=== PATIENT | male | born 1955 | race Caucasian/White ===

== ENCOUNTER → 2017-08-25 14:29 | Outpatient (REF) | payer OTHER, SELFPAY ==
[2017-08-25 17:43] LABS: Basophils % 0.4 % (0.1-2.0); Eosinophils # 0.1 K/mm3 (0.0-0.4); Eosinophils % 1.5 % (0.1-12.0); Hematocrit 45.3 % (42.0-52.0); Hemoglobin 15.4 g/dL (14.1-18.0); Lymphocytes # 1.7 K/mm3 (0.7-4.5); Lymphocytes % 32.4 K/mm3 (10-50); Mean Corpuscular HGB Conc 33.9 g/dL (31.8-35.4); Mean Corpuscular Hemoglobin 29.9 pg (27.0-31.2); Mean Corpuscular Volume 88.2 fl (80-94); Mean Platelet Volume 9.5 fl (7.4-10.4); Monocytes # 0.3 K/mm3 (0.1-1.0); Neutrophils # 3.1 K/mm3 (1.8-7.8); Neutrophils % 59.7 % (37.0-80.0); Platelet Count 156 K/mm3 (142-424); Red Blood Count 5.14 M/mm3 (4.60-6.20); Red Cell Distribution Width 13.3 % (11.5-17.5); White Blood Count 5.2 K/mm3 (4.8-10.8)
[2017-08-25 19:05] LABS: Hemoglobin A1C 6.9 % (0.0-7.0)
[2017-08-25 19:19] LABS: Alanine Aminotransferase 61 U/L (12-78); Albumin Level 3.9 gm/dL (3.4-5.0); Alkaline Phosphatase 101 U/L (46-116); Anion Gap 13.1 mEq/L (5-15); Aspartate Amino Transferase 61 U/L (15-37); Bilirubin,Total 0.6 mg/dL (0.2-1.0); Blood Urea Nitrogen 9 mg/dL (7-18); Calcium 9.9 mg/dL (8.5-10.1); Carbon Dioxide 28 mmol/L (21.0-32.0); Chloride 101 mmol/L (98-107); Cholesterol 151 mg/dL (140-200); Creatinine,Serum 0.82 mg/dL (0.70-1.30); Estimated Glomerular Filt Rate 95 ml/min (>60); Free T4 (Free Thyroxine) 1.45 ng/dl (0.76-1.46); GFR (African American) 115 ML/MIN (>60); Globulin 3.9 gm/dl (1.3-3.2); Glucose 175 mg/dL (74-106); HDL Cholesterol 51 mg/dL (27-67); LDL Cholesterol 86 mg/dL (0-130); Potassium 4.1 mmoL/L (3.5-5.1); Sodium 138 mmol/L (136-145); Thyroid Stimulating Hormone 0.55 uIU/ml (0.358-3.740); Total Protein,Serum 7.8 gm/dL (6.4-8.2); Triglycerides 71 mg/dL (30-200); VLDL Cholesterol 14 mg/dL (0-40)
[2017-08-27 07:43] LABS: Prostate Specific Ag 0.3 ng/mL (0.0-4.0)
[2017-08-28 21:11] LABS: PSA, Free 0.05 ng/mL; Testosterone,Free 2.5 pg/mL (6.6-18.1)
[2017-08-29 20:09] LABS: Testosterone, Total, LC/MS 314.4 ng/dL (264.0-916.0)
== END ==
LOC: LAB 14:29
PROVIDERS: Visit Provider Emergency Medicine
DX: E34.9 Endocrine disorder, unspecified (principal)
CPT/HCPCS: 80053; 80061; 83036; 84153; 84154; 84402; 84439; 84443; 85025

== ENCOUNTER → 2017-09-08 10:27 | Outpatient (REF) | payer OTHER, SELFPAY | LOC: LAB 10:27 | PROVIDERS: Visit Provider Emergency Medicine | DX: E34.9 Endocrine disorder, unspecified (principal) | CPT/HCPCS: 84402 ==

== ENCOUNTER → 2017-09-23 10:49 | Outpatient (CLI) | payer OTHER, SELFPAY ==
[2017-09-23 11:07] LABS: Basophils % 0.4 % (0.1-2.0); Eosinophils # 0.1 K/mm3 (0.0-0.4); Eosinophils % 1.8 % (0.1-12.0); Hematocrit 47.9 % (42.0-52.0); Hemoglobin 15.5 g/dL (14.1-18.0); Lymphocytes # 1.6 K/mm3 (0.7-4.5); Lymphocytes % 34.1 K/mm3 (10-50); Mean Corpuscular HGB Conc 32.3 g/dL (31.8-35.4); Mean Corpuscular Hemoglobin 29.2 pg (27.0-31.2); Mean Corpuscular Volume 90.4 fl (80-94); Mean Platelet Volume 8.6 fl (7.4-10.4); Monocytes # 0.3 K/mm3 (0.1-1.0); Monocytes % 6.7 % (1.7-9.3); Neutrophils # 2.6 K/mm3 (1.8-7.8); Platelet Count 127 K/mm3 (142-424); Red Blood Count 5.31 M/mm3 (4.60-6.20); Red Cell Distribution Width 13.3 % (11.5-17.5); White Blood Count 4.6 K/mm3 (4.8-10.8)
[2017-09-23 11:47] LABS: Alanine Aminotransferase 66 U/L (12-78); Albumin Level 3.9 gm/dL (3.4-5.0); Alkaline Phosphatase 98 U/L (46-116); Anion Gap 13.7 mEq/L (5-15); Aspartate Amino Transferase 58 U/L (15-37); Bilirubin,Total 0.5 mg/dL (0.2-1.0); Blood Urea Nitrogen 10 mg/dL (7-18); Calcium 10.2 mg/dL (8.5-10.1); Carbon Dioxide 29 mmol/L (21.0-32.0); Chloride 100 mmol/L (98-107); Creatinine,Serum 0.71 mg/dL (0.70-1.30); Estimated Glomerular Filt Rate 112 ml/min (>60); GFR (African American) 136 ML/MIN (>60); Glucose 147 mg/dL (74-106); Potassium 4.7 mmoL/L (3.5-5.1); Sodium 138 mmol/L (136-145); Total Protein,Serum 7.9 gm/dL (6.4-8.2)
== END ==
PROVIDERS: Visit Provider Otolaryngology
DX: Z01.818 Encounter for other preprocedural examination (principal); D49.2 Neoplasm of unspecified behavior of bone, soft tissue, and skin; D23.39 Other benign neoplasm of skin of other parts of face
CPT/HCPCS: 36415; 80053; 85025; 93005

== ENCOUNTER → 2018-02-05 10:02 | Outpatient (CLI) | payer OTHER, SELFPAY ==
[2018-02-05 11:13] LABS: Anion Gap 14.3 mEq/L (5-15); Blood Urea Nitrogen 7 mg/dL (7-18); Calcium 9.3 mg/dL (8.5-10.1); Carbon Dioxide 26 mmol/L (21.0-32.0); Chloride 98 mmol/L (98-107); Creatinine,Serum 0.76 mg/dL (0.70-1.30); Estimated Glomerular Filt Rate 104 ml/min (>60); GFR (African American) 125 ML/MIN (>60); Glucose 247 mg/dL (74-106); Potassium 4.3 mmoL/L (3.5-5.1); Sodium 134 mmol/L (136-145)
[2018-02-05 12:05] LABS: Hemoglobin A1C 9.1 % (0.0-7.0)
[2018-02-09 04:55] LABS: Testosterone, Total, LC/MS 2058.8 ng/dL (264.0-916.0)
== END ==
PROVIDERS: Visit Provider Emergency Medicine
DX: E11.9 Type 2 diabetes mellitus without complications (principal); E34.9 Endocrine disorder, unspecified
CPT/HCPCS: 36415; 80048; 83036; 84403

== ENCOUNTER → 2018-06-25 09:45 | Outpatient (CLI) | payer OTHER, SELFPAY ==
[2018-06-25 10:16] LABS: Basophils % 0.4 % (0.1-2.0); Eosinophils # 0.1 K/mm3 (0.0-0.4); Eosinophils % 1.9 % (0.1-12.0); Hematocrit 48.6 % (42.0-52.0); Hemoglobin 15.9 g/dL (14.1-18.0); Lymphocytes # 1.6 K/mm3 (0.7-4.5); Lymphocytes % 28.8 % (10-50); Mean Corpuscular HGB Conc 32.6 g/dL (31.8-35.4); Mean Corpuscular Hemoglobin 30.6 pg (27.0-31.2); Mean Corpuscular Volume 93.7 fl (80-94); Mean Platelet Volume 9.3 fl (7.4-10.4); Monocytes # 0.4 K/mm3 (0.1-1.0); Monocytes % 6.9 % (1.7-9.3); Neutrophils # 3.5 K/mm3 (1.8-7.8); Platelet Count 115 K/mm3 (142-424); Red Blood Count 5.19 M/mm3 (4.60-6.20); Red Cell Distribution Width 13.8 % (11.5-17.5); White Blood Count 5.7 K/mm3 (4.8-10.8)
[2018-06-25 11:21] LABS: Alanine Aminotransferase 90 U/L (12-78); Albumin Level 3.5 gm/dL (3.4-5.0); Alkaline Phosphatase 95 U/L (46-116); Aspartate Amino Transferase 61 U/L (15-37); Bilirubin,Direct 0.2 mg/dL (0.0-0.2); Bilirubin,Indirect 0.2 mg/dL (0.0-0.9); Bilirubin,Total 0.4 mg/dL (0.2-1.0); Total Protein,Serum 7.4 gm/dL (6.4-8.2)
[2018-06-30 06:47] LABS: Testosterone, Total, LC/MS 2136.5 ng/dL (264.0-916.0); Testosterone,Free 17.2 pg/mL (6.6-18.1)
== END ==
PROVIDERS: Visit Provider Urology
DX: E34.9 Endocrine disorder, unspecified (principal)
CPT/HCPCS: 36415; 80076; 84402; 84403; 85025

== ENCOUNTER → 2019-01-21 13:26 | Outpatient (CLI) | payer OTHER, SELFPAY ==
[2019-01-21 14:05] LABS: Basophils % 0.4 % (0.1-2.0); Eosinophils # 0.1 K/mm3 (0.0-0.4); Eosinophils % 1.3 % (0.1-12.0); Hematocrit 51.3 % (42.0-52.0); Hemoglobin 16.2 g/dL (14.1-18.0); Lymphocytes # 1.7 K/mm3 (0.7-4.5); Lymphocytes % 27.4 % (10-50); Mean Corpuscular HGB Conc 31.6 g/dL (31.8-35.4); Mean Corpuscular Hemoglobin 30.2 pg (27.0-31.2); Mean Corpuscular Volume 95.7 fl (80-94); Mean Platelet Volume 9.6 fl (7.4-10.4); Monocytes # 0.5 K/mm3 (0.1-1.0); Monocytes % 7.8 % (1.7-9.3); Neutrophils # 3.8 K/mm3 (1.8-7.8); Neutrophils % 63.1 % (37.0-80.0); Platelet Count 119 K/mm3 (142-424); Red Blood Count 5.36 M/mm3 (4.60-6.20); Red Cell Distribution Width 13.8 % (11.5-17.5)
[2019-01-21 15:43] LABS: Alanine Aminotransferase 70 U/L (12-78); Albumin Level 3.5 gm/dL (3.4-5.0); Alkaline Phosphatase 95 U/L (46-116); Aspartate Amino Transferase 66 U/L (15-37); Bilirubin,Direct 0.3 mg/dL (0.0-0.2); Bilirubin,Indirect 0.3 mg/dL (0.0-0.9); Bilirubin,Total 0.6 mg/dL (0.2-1.0); Prostate Specific Ag Screen 0.4 ng/mL (0.0-4.0); Total Protein,Serum 7.4 gm/dL (6.4-8.2)
[2019-01-27 08:16] LABS: Testosterone, Total, LC/MS 1159.6 ng/dL (264.0-916.0)
== END ==
PROVIDERS: Visit Provider Urology
DX: E34.9 Endocrine disorder, unspecified (principal)
CPT/HCPCS: 36415; 80076; 84402; 84403; 85025; G0103

== ENCOUNTER → 2019-07-30 13:59 | Outpatient (CLI) | payer MEDICARE, MEDICAID, SELFPAY ==
[2019-07-30 14:30] LABS: Basophils % 0.6 % (0.1-2.0); Eosinophils # 0.1 K/mm3 (0.0-0.4); Eosinophils % 1.7 % (0.1-12.0); Hematocrit 49.3 % (42.0-52.0); Hemoglobin 15.7 g/dL (14.1-18.0); Lymphocytes # 1.3 K/mm3 (0.7-4.5); Lymphocytes % 27.8 % (10-50); Mean Corpuscular HGB Conc 31.8 g/dL (31.8-35.4); Mean Corpuscular Hemoglobin 29.4 pg (27.0-31.2); Mean Corpuscular Volume 92.3 fl (80-94); Monocytes # 0.3 K/mm3 (0.1-1.0); Monocytes % 6.2 % (1.7-9.3); Neutrophils # 2.9 K/mm3 (1.8-7.8); Neutrophils % 63.6 % (37.0-80.0); Platelet Count 112 K/mm3 (142-424); Red Blood Count 5.34 M/mm3 (4.60-6.20); Red Cell Distribution Width 14.1 % (11.5-17.5); White Blood Count 4.6 K/mm3 (4.8-10.8)
[2019-07-30 15:52] LABS: Alanine Aminotransferase 73 U/L (12-78); Albumin Level 3.9 g/dl (3.5-5.0); Alkaline Phosphatase 78 U/L (38-126); Aspartate Amino Transferase 99 U/L (17-59); Bilirubin,Direct 0.2 mg/dl (0.0-0.4); Bilirubin,Indirect 0.7 mg/dL (0.0-0.9); Bilirubin,Total 0.9 mg/dl (0.2-1.3); Bilirubin,Unconjugated 0.7 mg/dL (0.0-1.1); Total Protein,Serum 6.9 g/dl (6.3-8.2)
[2019-08-03 12:43] LABS: Testosterone, Total, LC/MS 408.7 ng/dL (264.0-916.0); Testosterone,Free 3.5 pg/mL (6.6-18.1)
== END ==
PROVIDERS: Visit Provider Urology
DX: R79.89 Other specified abnormal findings of blood chemistry (principal); E34.9 Endocrine disorder, unspecified
CPT/HCPCS: 36415; 80076; 84402; 84403; 85025

== ENCOUNTER → 2020-01-28 13:24 | Outpatient (CLI) | payer MEDICARE, MEDICAID, SELFPAY ==
[2020-01-28 13:43] LABS: Basophils % 0.5 % (0.1-2.0); Eosinophils # 0.1 K/mm3 (0.0-0.4); Eosinophils % 1.3 % (0.1-12.0); Hematocrit 50.5 % (42.0-52.0); Hemoglobin 17.2 g/dL (14.1-18.0); Lymphocytes # 1.7 K/mm3 (0.7-4.5); Mean Corpuscular HGB Conc 34.1 g/dL (31.8-35.4); Mean Corpuscular Hemoglobin 29.7 pg (27.0-31.2); Mean Corpuscular Volume 87.2 fl (80-94); Mean Platelet Volume 8.7 fl (7.4-10.4); Monocytes # 0.5 K/mm3 (0.1-1.0); Monocytes % 8.4 % (1.7-9.3); Neutrophils # 3.3 K/mm3 (1.8-7.8); Neutrophils % 58.8 % (37.0-80.0); Platelet Count 122 K/mm3 (142-424); Red Blood Count 5.79 M/mm3 (4.60-6.20); Red Cell Distribution Width 14.6 % (11.5-17.5); White Blood Count 5.5 K/mm3 (4.8-10.8)
[2020-01-28 14:12] LABS: Alanine Aminotransferase 48 U/L (12-78); Albumin Level 4.2 g/dl (3.5-5.0); Alkaline Phosphatase 81 U/L (38-126); Aspartate Amino Transferase 58 U/L (17-59); Bilirubin,Direct 0.2 mg/dl (0.0-0.4); Bilirubin,Indirect 0.5 mg/dL (0.0-0.9); Bilirubin,Total 0.7 mg/dl (0.2-1.3); Bilirubin,Unconjugated 0.5 mg/dL (0.0-1.1); Total Protein,Serum 7.5 g/dl (6.3-8.2)
[2020-01-28 14:42] LABS: Prostate Specific Ag Screen 0.4 ng/ml (0.0-4.0)
[2020-02-04 17:31] LABS: Testosterone,Free 6.3 pg/mL (6.6-18.1)
== END ==
PROVIDERS: Visit Provider Urology
DX: Z12.5 Encounter for screening for malignant neoplasm of prostate (principal); R79.89 Other specified abnormal findings of blood chemistry; E29.1 Testicular hypofunction
CPT/HCPCS: 36415; 80076; 84402; 84403; 85025; G0103

== ENCOUNTER 2020-02-15 20:17 | Emergency (ER) | payer MEDICARE, MEDICAID, SELFPAY ==
[2020-02-15 20:30] VITALS: BP 164/82; PULSE 90; RESP 16; TEMP 37.3; O2SAT 98; BMI 32.5
--- NOTE | 2020-02-15 20:34 | PC.NURSE ---
completed gastrograffin at this time.
--- NOTE | 2020-02-15 20:42 | XR_ITS ---
PROCEDURE: XR CHEST 2V CLINICAL HISTORY: abd pain/weight loss COMPARISON: CR CXR CHEST(2 VIEWS-NOT PORTABLE) from 05/17/2013 CR CXR2 CHEST-AP VIEW ONLY from 06/15/2014 FINDINGS: Borderline cardiomegaly without failure. The lungs are clear without infiltrates, suspicious nodules, or pleural effusions. Degenerative changes thoracic spine IMPRESSION: No acute findings. Dictated by: Arnulfo Bass MD 02/16/2020 05:24 Arnulfo Bass MD in [place] 02/16/2020 05:24
--- NOTE | 2020-02-15 20:42 | CT_ITS ---
PROCEDURE: CT ABDOMEN PELVIS W CON CLINICAL INDICATION: abd pain/stool changes Abdominal pain, stool changes, episodic vomiting, weight loss COMPARISON: No exams were available for comparison TECHNIQUE: IV Contrast: 75ML Isovue 370 Oral Contrast 10ml Gastroview Axial images obtained with sagittal and coronal reformats. All CT scans at the facility use one or more dose reduction, viz: automated exposure control, ma/kV adjustment per patient size (including targeted exams where dose is matched to indication, i.e. head), or iterative reconstruction technique. FINDINGS: LOWER THORAX: No acute finding ABDOMEN & PELVIS: There is subtle nodularity of the liver margin. No focal liver lesion is evident. The gallbladder is distended at 14 by 5 cm. The spleen is enlarged at 16 cm. Perigastric varices and mesenteric variance these are noted. The portal vein is mildly enlarged at 17 mm in diameter. The pancreas and adrenal glands have an unremarkable appearance. No renal or ureteral calculi. Hypodensity is present along the superior pole of the right kidney measuring 2 cm with a punctate focus of peripheral calcification. This lesion measures 19 Hounsfield units. 6 cm left parapelvic renal cysts noted No intestinal obstruction or free air. There is stranding of the fat in the right lateral conal fascia region adjacent to the appendix. What appears to represent the appendix however is normal in caliber. There is a mild amount of retained colonic feces. No abnormal fluid collections are evident. No intestinal obstruction or free air. There is fusion of the right SI joint. Degenerative changes lumbar spine. IMPRESSION: 1. Moderately distended gallbladder. Ultrasound may provide further evaluation. 2. Nodularity of the liver consistent with cirrhosis with splenomegaly, enlarged portal vein, paraesophageal and peritoneal varices consistent with portal hypertension 3. Indeterminate right renal lesion at 2 cm. Consider ultrasound to determine cystic or solid nature. 4. There is stranding of the fat in the right pericolic gutter inferiorly. This is adjacent to the appendix however, or appears to represent the appendix has an unremarkable appearance. Focal inflammatory changes here are considered. Consider follow-up to confirm stability. Dictated by: Arnulfo Bass MD 02/16/2020 05:45 Arnulfo Bass MD in [facility] 02/16/2020 05:45
--- NOTE | 2020-02-15 20:52 | HMH.EDNVD ---
ED Disposition Clinical Impression: Abdominal pain Qualifiers: Abdominal location: generalized Qualified Code(s): R10.84 - Generalized abdominal pain Disposition: Home, Self-Care Condition on Discharge: Good Instructions: DI for Acute Abdomen Additional Instructions: see pcp for follow up Referrals: Jacob Mcduffie MD [Primary Care Provider] - - Critical Care Critical Care Time: No Attestation: On 02/15/20, the high probability of a clinically significant, sudden or life threatening deterioration of the following system(s) required my full and direct attention, intervention and personal management. The time I documented below is in addition to time spent performing reported procedures but includes the following listed in this critical care notation. Medical Decision Making - Medical Records Medical records reviewed: Yes: I reviewed the patient's medical records. - Garo Inquiry Pt receiving controlled substance: No Vital Signs: 02/15/20 20:30 Temperature 99.2 F Temperature Source Oral Pulse Rate [Right Brachial] 90 Respiratory Rate 16 Blood Pressure [Right Arm] 164/82 H Blood Pressure Mean [Right Arm] 109 Blood Pressure Source [Right Arm] Automatic Cuff Blood Pressure Position [Right Arm] Sitting 02 Sat by Pulse Oximetry 98 Oxygen Delivery Method Room Air - Lab Data Lab results reviewed: Yes: I reviewed the patient's lab results. Lab Results 02/15/20 20:36: WBC 5.9, RBC 5.61, Hgb 17.0, Hct 51.9, MCV 92.6, MCH 30.3, MCHC 32.7, RDW 14.8, Plt Count 101 L, MPV 9.2, Neut % (Auto) 58.9, Lymph % (Auto) 30.8, [place] % (Auto) 8.2, Eos % (Auto) 1.8, Baso % (Auto) 0.3, Neut # (Auto) 3.5, Lymph # (Auto) 1.8, [place] # (Auto) 0.5, Eos # (Auto) 0.1, Baso # (Auto) 0.0, ESR 14 02/15/20 20:36: Sodium 139, Potassium 4.4, Chloride 101, Carbon Dioxide 29, Anion Gap 13.4, BUN 16, Creatinine 0.70, Estimated Creat Clear 113, Estimated GFR 113, Est GFR ( Amer) 137, Glucose 217 H, Calcium 10.5 H, Total Bilirubin 0.9, AST 82 H, ALT 77, Alkaline Phosphatase 81, C-Reactive Protein 3.5, Total Protein 8.4 H, Albumin 4.6, Globulin 3.8 H, Albumin/Globulin Ratio 1.2, Amylase 55 02/15/20 20:36: Lipase 85 02/15/20 21:21: Urine Color Yellow, Urine Appearance Clear, Urine pH 6.0, Ur Specific [place] >= 1.030, Urine Protein Negative, Urine Glucose (UA) 1+, Urine Ketones Negative, Urine Blood Negative, Urine Nitrate Negative, Urine Bilirubin Negative, Urine Urobilinogen 2.0, Ur Leukocyte Esterase Negative, Urine WBC Occasional, Ur Squamous Epith Cells 3-5, Urine Bacteria Trace Result diagrams: 02/15/20 20:36 02/15/20 20:36 Orders (Tests/Meds): ED MEDICATIONS Generic Name Dose Route Start Last Admin Trade Name Freq PRN Reason Stop Dose Admin Sodium Chloride 1,000 mls @ 999 mls/hr 02/15/20 21:15 02/15/20 21:16 Sod Chlor 0.9% 1000ml Bag IV 02/15/20 22:15 999 mls/hr .Q1H1M SUZY Administration Discontinued Medications Generic Name Dose Route Start Last Admin Trade Name Freq PRN Reason Stop Dose Admin Diatrizoate Meglum/Diatrizoate Sod 30 ml 02/15/20 21:15 02/15/20 20:34 Diatrizoate Sharron 66% & Diatrizoate Na 10% 30ml Udc PO 02/15/20 21:16 30 ml ONCE ONE Administration Iopamidol 75 ml 02/15/20 23:05 02/15/20 23:07 Iopamidol-370 (76%);100ml Bottle IV 02/15/20 23:06 75 ml ONCE ONE Administration Sodium Chloride 10 ml 02/15/20 23:05 02/15/20 23:07 Sodium Chloride 0.9% 10ml Syr (Rad Only) IV 02/15/20 23:06 10 ml ONCE ONE Administration ORDERS Category Date Time Status CT abdomen pelvis w con Stat Cat Scan 02/15/20 20:42 Taken XR chest 2V Stat Exams 02/15/20 20:42 Taken Hepatitis Panel (4) Stat Lab 02/15/20 21:07 Received - CT Data CT Scan: Abdomen, Pelvis Time Received: 23:[address] Reviewed: Yes: I have viewed the radiologist's interpretation Preliminary Findings: Abnormal (see report ) Nausea/Vomiting/Diarrhea HPI - General Chief complaint: Abdominal Pain Stat
[2020-02-15 20:54] LABS: Chloride 101 mmol/L (98-107)
[2020-02-15 20:55] LABS: Potassium 4.4 mmoL/L (3.5-5.1); Sodium 139 mmol/L (136-145)
[2020-02-15 20:57] LABS: Alanine Aminotransferase 77 U/L (12-78); Alkaline Phosphatase 81 U/L (38-126); Amylase 55 U/L (30-110); Anion Gap 13.4 mEq/L (5-15); Aspartate Amino Transferase 82 U/L (17-59); Bilirubin,Total 0.9 mg/dl (0.2-1.3); Blood Urea Nitrogen 16 mg/dl (9-20); Carbon Dioxide 29 mmol/L (22.0-30.0); Creatinine Clearance Estimated 113 mL/min (50-200); Estimated Glomerular Filt Rate 113 ml/min (>60); GFR (African American) 137 ML/MIN (>60)
[2020-02-15 20:58] LABS: Albumin Level 4.6 g/dl (3.5-5.0); Albumin/Globulin Ratio 1.2 (1.1-1.8); Calcium 10.5 mg/dl (8.4-10.2); Globulin 3.8 g/dL (1.3-3.2); Glucose 217 mg/dl (74-100); Lipase 85 U/L (23-300); Total Protein,Serum 8.4 g/dl (6.3-8.2)
[2020-02-15 21:00] VITALS: BP 156/78; PULSE 75; RESP 18; O2SAT 97
[2020-02-15 21:03] LABS: C-Reactive Protein 3.5 mg/L (0-4)
[2020-02-15 21:14] LABS: Basophils % 0.3 % (0.1-2.0); Eosinophils # 0.1 K/mm3 (0.0-0.4); Eosinophils % 1.8 % (0.1-12.0); Hematocrit 51.9 % (42.0-52.0); Lymphocytes # 1.8 K/mm3 (0.7-4.5); Lymphocytes % 30.8 % (10-50); Mean Corpuscular HGB Conc 32.7 g/dL (31.8-35.4); Mean Corpuscular Hemoglobin 30.3 pg (27.0-31.2); Mean Corpuscular Volume 92.6 fl (80-94); Mean Platelet Volume 9.2 fl (7.4-10.4); Monocytes # 0.5 K/mm3 (0.1-1.0); Monocytes % 8.2 % (1.7-9.3); Neutrophils # 3.5 K/mm3 (1.8-7.8); Neutrophils % 58.9 % (37.0-80.0); Platelet Count 101 K/mm3 (142-424); Red Blood Count 5.61 M/mm3 (4.60-6.20); Red Cell Distribution Width 14.8 % (11.5-17.5); White Blood Count 5.9 K/mm3 (4.8-10.8)
[2020-02-15 21:27] LABS: Appearance,Urine CLEAR (Clear); Bilirubin,Urine Negative (Negative); Blood, Urine Negative (Negative); Color,Urine YELLOW (Yellow); Glucose,Urine (UA) 1+ (Negative); Ketones,Urine Negative (Negative); Leukocyte Esterase,Urine Negative (Negative); Microscopic, Urine URINE MICROSCOPIC (MICROSCOPIC); Nitrate,Urine Negative (Negative); Protein,Urine Negative (Negative); Specific Gravity, Urine >= 1.030 (1.005-1.030)
--- NOTE | 2020-02-15 21:30 | PC.NURSE ---
pt refused bp monitoring. wouldn't keep cuff or pulse ox on.
[2020-02-15 21:48] LABS: Bacteria,Urine Trace /lpf; WBC,Urine Occasional #/hpf (0-3)
[2020-02-15 21:50] LABS: Erythrocyte Sedimentation Rate 14 mm/hr (0-20)
--- NOTE | 2020-02-15 22:00 | PC.NURSE ---
pt continues to refuse monitoring. unable to obtain vs. pt is upright on side of bed talking on his phone. no apparent distress.
--- NOTE | 2020-02-15 22:27 | PC.NURSE ---
called rad to find out what delay was. spoke with cyrus. they will be down to retrieve patient for scan.
--- NOTE | 2020-02-15 22:47 | PC.NURSE ---
PT REMAINS IN CT
--- NOTE | 2020-02-15 23:03 | PC.NURSE ---
return from ct
--- NOTE | 2020-02-15 23:04 | PC.NURSE ---
refused vs monitoring. no apparent distress. continues to be verbal with clear speech. no issues noted. no new issues stated.
--- NOTE | 2020-02-15 23:18 | PC.NURSE ---
pt standing at curtains edge with intention of rushing the staff. states he doesn't understand what is taking so long for him and that he wants to leave. he was told that he would have to return to his room behind the curtain due to Hip[employer] and that it was not appropriate for him to have visual access to the tracker board names. He demanded to see the written hospital policy for this and house was notified. before house arrived to department, patient had receded back into his room. no additional complaints as of yet. monitoring situation. change house attendant in department at this time.
[2020-02-15 23:30] VITALS: BP 150/75; PULSE 73; RESP 15; TEMP 36.7; O2SAT 98
[2020-02-15 23:49] LABS: Hemoglobin A1C 8.7 % (4.0-6.0)
[2020-02-17 09:40] LABS: Hep A Ab, IgM Negative (Negative); Hepatitis B Core Antibody IgM Negative (Negative); Hepatitis B Surface Antigen Negative (Negative)
[2020-02-17 11:53] LABS: Hepatitis C Antibody >11.0 s/co ratio (0.0-0.9)
== END 2020-02-15 23:32 | disposition home or self-care (01) ==
PROVIDERS: Emergency Provider Emergency Medicine; PCP Emergency Medicine
DX: R10.84 Generalized abdominal pain (principal); E11.65 Type 2 diabetes mellitus with hyperglycemia; I10 Essential (primary) hypertension; F41.8 Other specified anxiety disorders; Z87.442 Personal history of urinary calculi; F17.210 Nicotine dependence, cigarettes, uncomplicated; Z79.899 Other long term (current) drug therapy
CPT/HCPCS: 36415; 71046; 74177; 80053; 80074; 81001; 82150; 83036; 83690; 85025; 85651; 86140; 96365; 99283; Q9967

== ENCOUNTER → 2020-02-18 10:28 | Outpatient (CLI) | payer MEDICARE, MEDICAID, SELFPAY ==
[2020-02-18 16:06] LABS: INR 1.07 (0.9-1.1); Prothrombin Time 11.8 seconds (9.4-11.8)
[2020-02-21 09:19] LABS: HIV Screen 4th Generation wRfx Non Reactive (Non Reactive)
[2020-02-23 23:14] LABS: Hepatitis C Genotype 3 (.)
== END ==
PROVIDERS: Visit Provider Emergency Medicine
DX: R10.9 Unspecified abdominal pain (principal); R76.8 Other specified abnormal immunological findings in serum; Z11.4 Encounter for screening for human immunodeficiency virus [HIV]
CPT/HCPCS: 36415; 85610; 86703; 87522; G0432

== ENCOUNTER → 2020-02-25 10:56 | Outpatient (CLI) | payer MEDICARE, MEDICAID, SELFPAY ==
--- NOTE | 2020-02-25 10:56 | US_ITS ---
PROCEDURE: US KIDNEY CLINICAL INDICATION: Renal masses COMPARISON: CT CT ABDOMEN PELVIS W CON from 02/15/2020 FINDINGS: The right kidney is [id number]. An indeterminate nodule involving the right kidney upper pole on CT scan. This does appear to represent a cyst measuring 18 x 14 mm. The left kidney is [id number]. There is a left parapelvic renal cyst at 5 cm No hydronephrosis. IMPRESSION: Bilateral renal cysts. CT abnormality of the right kidney corresponds to a benign-appearing cyst Dictated by: Arnulfo Bass MD 02/25/2020 17:21 Arnulfo Bass MD in [facility] 02/25/2020 17:21
== END ==
PROVIDERS: PCP Emergency Medicine; Visit Provider Emergency Medicine
DX: N28.9 Disorder of kidney and ureter, unspecified (principal)
CPT/HCPCS: 76770

== ENCOUNTER → 2020-05-31 14:10 | Outpatient (CLI) | payer MEDICARE, MEDICAID, SELFPAY ==
[2020-05-31 14:21] LABS: Chloride 101 mmol/L (98-107)
[2020-05-31 14:22] LABS: Potassium 4.5 mmoL/L (3.5-5.1); Sodium 139 mmol/L (136-145)
[2020-05-31 14:24] LABS: Alanine Aminotransferase 62 U/L (12-78); Aspartate Amino Transferase 71 U/L (17-59); Blood Urea Nitrogen 15 mg/dl (9-20); Carbon Dioxide 30 mmol/L (22.0-30.0); Estimated Glomerular Filt Rate 113 ml/min (>60); GFR (African American) 137 ML/MIN (>60)
[2020-05-31 14:25] LABS: Albumin Level 4.4 g/dl (3.5-5.0); Albumin/Globulin Ratio 1.2 (1.1-1.8); Alkaline Phosphatase 94 U/L (38-126); Bilirubin,Total 1.1 mg/dl (0.2-1.3); Calcium 10.7 mg/dl (8.4-10.2); Chol/HDL Ratio 2.6 (1-3.5); Cholesterol 165 mg/dl (140-200); Globulin 3.8 g/dL (1.3-3.2); Glucose 287 mg/dl (74-100); HDL Cholesterol 64 mg/dl (40-60); Total Protein,Serum 8.2 g/dl (6.3-8.2); Triglycerides 81 mg/dl (30-150); VLDL Cholesterol 16 mg/dL (0-40)
[2020-05-31 14:27] LABS: Creatinine,Urine Random 156 mg/dL (Not Estab.)
[2020-05-31 14:29] LABS: Microalbumin/Creatinine Ratio 23.9
[2020-05-31 14:36] LABS: Direct LDL Cholesterol 73.46 mg/dL (100-129)
[2020-05-31 14:37] LABS: Hemoglobin A1C 7.7 % (4.0-6.0)
[2020-05-31 14:39] LABS: Basophils % 0.4 % (0.1-2.0); Eosinophils # 0.1 K/mm3 (0.0-0.4); Eosinophils % 0.9 % (0.1-12.0); Hematocrit 50.5 % (42.0-52.0); Hemoglobin 16.7 g/dL (14.1-18.0); Lymphocytes # 1.6 K/mm3 (0.7-4.5); Lymphocytes % 22.7 % (10-50); Mean Corpuscular Hemoglobin 29.9 pg (27.0-31.2); Mean Corpuscular Volume 90.6 fl (80-94); Mean Platelet Volume 9.5 fl (7.4-10.4); Monocytes # 0.5 K/mm3 (0.1-1.0); Neutrophils # 4.9 K/mm3 (1.8-7.8); Neutrophils % 68.9 % (37.0-80.0); Platelet Count 125 K/mm3 (142-424); Red Blood Count 5.57 M/mm3 (4.60-6.20); Red Cell Distribution Width 15.1 % (11.5-17.5); White Blood Count 7.1 K/mm3 (4.8-10.8)
[2020-05-31 14:42] LABS: Free T4 (Free Thyroxine) 1.64 ng/dl (0.78-2.19)
[2020-05-31 14:56] LABS: Thyroid Stimulating Hormone 0.51 uIU/mL (0.465-4.68)
== END ==
PROVIDERS: Visit Provider Emergency Medicine
DX: E11.9 Type 2 diabetes mellitus without complications (principal); Z79.84 Long term (current) use of oral hypoglycemic drugs
CPT/HCPCS: 80053; 80061; 82043; 82570; 83036; 84439; 84443; 85025

== ENCOUNTER → 2020-06-07 13:43 | Outpatient (CLI) | payer MEDICARE, MEDICAID, SELFPAY ==
[2020-06-09 13:45] LABS: Peripheral Smear Review Scanned Result
== END ==
PROVIDERS: Visit Provider Emergency Medicine
DX: D69.6 Thrombocytopenia, unspecified (principal)

== ENCOUNTER 2020-07-04 18:14 | Emergency (ER) | payer MEDICARE, MEDICAID, SELFPAY ==
[2020-07-04 18:28] VITALS: BP 175/91; PULSE 95; RESP 16; TEMP 36.8; O2SAT 97; BMI 31.1
--- NOTE | 2020-07-04 18:45 | HMH.EDBACK ---
ED Disposition Clinical Impression: Sciatica Qualifiers: Laterality: right Qualified Code(s): M54.31 - Sciatica, right side Disposition: Home, Self-Care Condition on Discharge: Good Instructions: DI for Low Back Pain, DI for Back Pain With Sciatica Referrals: Jacob Mcduffie MD [Primary Care Provider] - - Critical Care Critical Care Time: No Attestation: On 07/04/20, the high probability of a clinically significant, sudden or life threatening deterioration of the following system(s) required my full and direct attention, intervention and personal management. The time I documented below is in addition to time spent performing reported procedures but includes the following listed in this critical care notation. Medical Decision Making - Garo Inquiry Pt receiving controlled substance: No Vital Signs: 07/04/20 18:28 Temperature 98.2 F Temperature Source Oral Pulse Rate [Right Radial] 95 H Respiratory Rate 16 Blood Pressure [Right Arm] 175/91 H Blood Pressure Mean [Right Arm] 119 Blood Pressure Source [Right Arm] Automatic Cuff Blood Pressure Position [Right Arm] Sitting 02 Sat by Pulse Oximetry 97 Oxygen Delivery Method Room Air Orders (Tests/Meds): ED MEDICATIONS Discontinued Medications Generic Name Dose Route Start Last Admin Trade Name Freq PRN Reason Stop Dose Admin Ketorolac Tromethamine 60 mg 07/04/20 18:49 07/04/20 18:54 Ketorolac 60mg/2ml Vial IM 07/04/20 18:50 60 mg ONCE ONE Administration Morphine Sulfate 4 mg 07/04/20 19:39 07/04/20 19:40 Morphine 4mg/Ml Syringe IV 07/04/20 19:40 4 mg ONCE ONE Administration Morphine Sulfate 4 mg 07/04/20 19:43 Morphine 2mg/Ml Syringe IM 07/04/20 19:44 ONCE ONE ORDERS Category Date Time Status XR lumbar spine min 4V Stat Exams 07/04/20 18:49 Taken Urinalysis and Microscopic Stat Lab 07/04/20 18:49 Ordered - Radiology Data #1 Image(s): L-Spine Image Reviewed: No I reviewed the patient's radiology results, Yes I reviewed the patient's radiology image, No I discussed the image results w/the radiologist, No I have reviewed radiologist's interpretation Preliminary Findings: No Fracture Seen (There are nonspecific degenerative changes. No acute changes seen) Medical Decision Narrative: Emergency department complaining of lower back pain. On physical examination there is no evidence of limb ischemia. There is no evidence of aortic aneurysm. The patient had a positive leg raise test on the right. He is neurovascularly intact distally. He was given Toradol in the emergency department without any relief. The patient refuses to give a urinalysis sample stating that he wants to see something on TV today. A plain radiograph of the lumbar spine did not show any acute disease. There is some evidence of nonspecific degenerative changes. The final radiology interpretation is pending. The patient will be discharged home in stable condition after having received a 4 mg intramuscularly administered morphine dose. Back Pain HPI - General Chief Complaint: Back Pain/Injury Stated Complaint: Back pain Time Seen by Provider: 07/04/20 18:45 Mode of Arrival: Ambulatory Source of Information: Patient, Spouse Limitations: No Limitations Description of Symptoms (Recalled from ER Triage Doc. by RN): Back Pain - History of Present Illness MD Complaint: back pain Onset (ago): day(s) (2) Duration: constant Similar Symptoms Previously: No Location: lumbar spine Severity: moderate Radiation: left leg Relieving factors: none Exacerbating factors: movement Context: unknown - Related Data Home Medications Medication Instructions Recorded Confirmed fentanyl 100 mcg/hr transdermal 1 patch TRANSDERMA Q72H 08/25/17 06/07/20 patch testosterone cypionate 200 mg/mL 250 mg IM Q2W 12/04/17 06/07/20 intramuscular kit Aspirin [Low Dose Aspirin EC] 81 mg PO DAILY 02/15/20 06/07/20 Escitalopram Oxalate See Rx Ins
--- NOTE | 2020-07-04 18:49 | XR_ITS ---
PROCEDURE: XR LUMBAR SPINE MIN 4V CLINICAL INDICATION: pain COMPARISON: No exams were available for comparison FINDINGS: Multilevel degenerative changes with endplate sclerosis, loss of disc height, anterior osteophyte formation facet joint arthropathy noted, worse in the lower lumbar levels. No evidence of acute fractures or listhesis. Bone density is within normal limits. Vertebral body heights and alignment are maintained. Extensive vascular calcification of the abdominal aorta noted. Otherwise the paravertebral soft tissues are unremarkable. IMPRESSION: Degenerative changes of the lumbar spine. No acute fractures or listhesis. Dictated by: Shannan Haynes 07/05/2020 09:05 Shannan Haynes in [facility] 07/05/2020 09:05
[2020-07-04 19:53] VITALS: BP 142/73; PULSE 79; RESP 18; TEMP 36.6; O2SAT 98
== END 2020-07-04 19:56 | disposition home or self-care (01) ==
PROVIDERS: Emergency Provider Emergency Medicine; PCP Emergency Medicine
DX: M54.31 Sciatica, right side (principal); I10 Essential (primary) hypertension; F41.8 Other specified anxiety disorders; E11.9 Type 2 diabetes mellitus without complications; Z87.442 Personal history of urinary calculi; F17.210 Nicotine dependence, cigarettes, uncomplicated; Z79.899 Other long term (current) drug therapy
CPT/HCPCS: 72110; 96372; 99282

== ENCOUNTER → 2020-08-03 14:13 | Outpatient (CLI) | payer MEDICARE, MEDICAID, SELFPAY ==
[2020-08-03 14:24] LABS: Microscopic, Urine URINE MICROSCOPIC (MICROSCOPIC)
[2020-08-03 14:55] LABS: Appearance,Urine CLEAR (Clear); Bilirubin,Urine Negative (Negative); Blood, Urine Negative (Negative); Color,Urine YELLOW (Yellow); Glucose,Urine (UA) 1+ (Negative); Ketones,Urine Negative (Negative); Leukocyte Esterase,Urine Negative (Negative); Nitrate,Urine Negative (Negative); Protein,Urine Negative (Negative); Specific Gravity, Urine 1.015 (1.005-1.030); Urobilinogen,Urine 0.2 EU/dl (0.2)
[2020-08-03 14:57] LABS: Basophils # 0.1 K/mm3 (0-0.2); Basophils % 0.7 % (0.1-2.0); Eosinophils # 0.1 K/mm3 (0.0-0.4); Hematocrit 49.9 % (42.0-52.0); Hemoglobin 17.2 g/dL (14.1-18.0); Lymphocytes # 2.5 K/mm3 (0.7-4.5); Lymphocytes % 26.5 % (10-50); Mean Corpuscular HGB Conc 34.6 g/dL (31.8-35.4); Mean Corpuscular Hemoglobin 29.4 pg (27.0-31.2); Mean Corpuscular Volume 84.9 fl (80-94); Mean Platelet Volume 8.4 fl (7.4-10.4); Monocytes # 0.7 K/mm3 (0.1-1.0); Monocytes % 6.9 % (1.7-9.3); Neutrophils # 6.1 K/mm3 (1.8-7.8); Neutrophils % 64.9 % (37.0-80.0); Platelet Count 153 K/mm3 (142-424); Red Blood Count 5.87 M/mm3 (4.60-6.20); Red Cell Distribution Width 14.6 % (11.5-17.5); White Blood Count 9.3 K/mm3 (4.8-10.8)
[2020-08-03 15:04] LABS: Bacteria,Urine Trace /lpf; Mucus,Urine 1+ /lpf
[2020-08-03 15:08] LABS: Microalbumin/Creatinine Ratio 85.1
[2020-08-03 15:14] LABS: Creatinine,Urine Random 109 mg/dL (Not Estab.)
[2020-08-03 15:53] LABS: Albumin Level 4.9 g/dl (3.5-5.0); Anion Gap 17.8 mEq/L (5-15); Blood Urea Nitrogen 12 mg/dl (9-20); Carbon Dioxide 24 mmol/L (22.0-30.0); Chloride 104 mmol/L (98-107); Estimated Glomerular Filt Rate 84 ml/min (>60); GFR (African American) 102 ML/MIN (>60); Glucose 165 mg/dl (74-100); Potassium 3.8 mmoL/L (3.5-5.1); Sodium 142 mmol/L (136-145)
[2020-08-03 16:06] LABS: Intact Parathyroid Hormone 32.3 pg/mL (7.5-53.5)
[2020-08-03 16:10] LABS: 25-OH Vitamin D, Total 18.3 ng/mL (30-100)
== END ==
PROVIDERS: Visit Provider Internal Medicine Nephrology
DX: R80.9 Proteinuria, unspecified (principal); E55.9 Vitamin D deficiency, unspecified
CPT/HCPCS: 36415; 80069; 81001; 82043; 82306; 82570; 83970; 84155; 85025

== ENCOUNTER → 2020-08-14 14:16 | Outpatient (POV) | payer MEDICARE, MEDICAID, SELFPAY | PROVIDERS: Visit Provider Internal Medicine Nephrology | DX: Z00.00 Encounter for general adult medical examination without abnormal findings (principal) ==

== ENCOUNTER → 2020-10-02 13:59 | Outpatient (CLI) | payer MEDICARE, MEDICAID, SELFPAY ==
[2020-10-02 15:26] LABS: Chol/HDL Ratio 3.9 (1-3.5); Cholesterol 171 mg/dl (140-200); HDL Cholesterol 44 mg/dl (40-60); Triglycerides 79 mg/dl (30-150); VLDL Cholesterol 16 mg/dL (0-40)
[2020-10-02 15:37] LABS: Direct LDL Cholesterol 104.67 mg/dL (100-129)
[2020-10-02 17:11] LABS: Hemoglobin A1C 7.1 % (4.0-6.0)
== END ==
PROVIDERS: Visit Provider Emergency Medicine
DX: E11.9 Type 2 diabetes mellitus without complications (principal); Z79.84 Long term (current) use of oral hypoglycemic drugs
CPT/HCPCS: 80061; 83036

== ENCOUNTER 2020-12-17 12:07 | Emergency (ER) | payer MEDICARE, MEDICAID, SELFPAY ==
[2020-12-17 12:21] VITALS: BP 155/87; PULSE 110; RESP 18; TEMP 37.2; O2SAT 96; BMI 29.8
--- NOTE | 2020-12-17 12:25 | XR_ITS ---
PROCEDURE INFORMATION: Exam: XR Left Hip Exam date and time: 12/17/2020 12:25 PM Age: 65 years old Clinical indication: Injury or trauma; Other: Ran into a door; Blunt trauma (contusions or hematomas); Injury details: Left hip pain after running into a door at 10:30am this morning. TECHNIQUE: Imaging protocol: XR Left hip. Views: 2 or 3 views hip with pelvis when performed. COMPARISON: CT ABDOMEN PELVIS W CON 02/15/2020 10:38 PM FINDINGS: Bones/joints: Mild degenerative change. No acute fracture or traumatic malalignment. Soft tissues: Unremarkable. IMPRESSION: No acute osseous abnormality.
--- NOTE | 2020-12-17 12:27 | HMH.EDGENADL ---
ED Disposition Clinical Impression: Traumatic hematoma Disposition: Home, Self-Care Condition on Discharge: Good Instructions: DI for Hematoma (Bruise) Additional Instructions: Apply ice to the hematoma 20 to 30 minutes 4-5 times a day for the next 2 days. Return to the emergency department if the hematoma doubles in size. Expect more visible bruising to appear on the skin over time. It also may spread down your leg over the next week. Referrals: Jacob Mcduffie MD [Primary Care Provider] - - Critical Care Critical Care Time: No Attestation: On 12/17/20, the high probability of a clinically significant, sudden or life threatening deterioration of the following system(s) required my full and direct attention, intervention and personal management. The time I documented below is in addition to time spent performing reported procedures but includes the following listed in this critical care notation. Medical Decision Making - Garo Inquiry Pt receiving controlled substance: No Vital Signs: 12/17/20 12:21 12/17/20 12:31 12/17/20 13:02 Temperature 98.9 F Temperature Source Oral Pulse Rate 108 H 108 H Pulse Rate [Left Radial] 110 H Respiratory Rate 18 Blood Pressure 165/100 H 148/84 H Blood Pressure [Right Arm] 155/87 H Blood Pressure Mean 115 119 Blood Pressure Mean [Right Arm] 109 Blood Pressure Source [Right Arm] Automatic Cuff Blood Pressure Position Blood Pressure Position [Right Arm] Sitting 02 Sat by Pulse Oximetry 96 94 L 95 Oxygen Delivery Method Room Air 12/17/20 13:19 12/17/20 13:35 Temperature 98.9 F 98 F Temperature Source Oral Oral Pulse Rate 108 H 78 Pulse Rate [Left Radial] Respiratory Rate 18 18 Blood Pressure 148/84 H 136/68 Blood Pressure [Right Arm] Blood Pressure Mean Blood Pressure Mean [Right Arm] Blood Pressure Source [Right Arm] Blood Pressure Position Sitting Blood Pressure Position [Right Arm] 02 Sat by Pulse Oximetry Oxygen Delivery Method Room Air Room Air - Radiology Data #1 Image(s): Hip Image Reviewed: Yes I reviewed the patient's radiology image soft tissue swelling, no fracture seen - Reevaluation(s) Time: 12:57 Reevaluation #1: Hematoma has not changed in size since my initial examination. The patient refuses any blood work. Discussed checking his blood counts and clotting studies, given his history of liver disease. He declines. Review of his most recent blood work here shows that his prothrombin time was normal. General Adult HPI - General Chief complaint: Extremity Injury, Lower Stated complaint: AO bumped something 12/17 lt hip pain/swelling Time Seen by Provider: 12/17/20 12:27 Mode of Arrival: Ambulatory Limitations: No Limitations Description of Symptoms (Recalled from ER Triage Doc. by RN): c/o left hip swelling after hitting a door frame a few hours ago - History of Present Illness HPI narrative: States that he hit his left hip on a door frame this morning at about 10 AM. Since then he has developed a large knot in the area. He has applied ice, but it continues to get bigger. Able to ambulate. No medications taken. States he cannot take [id number] analgesics because of liver problems, nonalcoholic . He is not on any anticoagulants. He refuses to discuss exactly how the injury happened, he states I am not going there . - Related Data Home Medications Medication Instructions Recorded Confirmed testosterone cypionate 200 mg/mL 250 mg IM Q2W 12/04/17 10/02/20 intramuscular kit pantoprazole 20 mg tablet,delayed 20 mg PO DAILY 10/02/20 10/02/20 release Previous Rx's Medication Instructions Recorded gabapentin 100 mg capsule 100 mg PO TID 10 Days #30 cap 10/02/20 gabapentin 300 mg capsule 300 mg PO TID #90 cap 10/02/20 escitalopram oxalate 20 mg tablet See Rx Instructions .ROUTE 10/20/20 .COMPLEX #90 tab lisinopril 20 See Rx Instructions .ROUTE 11/08/20 mg-hydr
[2020-12-17 12:31] VITALS: BP 165/100; PULSE 108; O2SAT 94
[2020-12-17 13:02] VITALS: BP 148/84; PULSE 108; O2SAT 95
[2020-12-17 13:19] VITALS: BP 148/84; PULSE 108; RESP 18; TEMP 37.2; O2SAT 96
[2020-12-17 13:35] VITALS: BP 136/68; PULSE 78; RESP 18; TEMP 36.6; O2SAT 98
== END 2020-12-17 13:25 | disposition home or self-care (01) ==
LOC: UTC 12:11 → ER 12:15
PROVIDERS: Emergency Provider Emergency Medicine; PCP Emergency Medicine
DX: S70.02XA Contusion of left hip, initial encounter (principal); W22.8XXA Striking against or struck by other objects, initial encounter; Y92.019 Unspecified place in single-family (private) house as the place of occurrence of the external cause; E11.9 Type 2 diabetes mellitus without complications; F41.8 Other specified anxiety disorders; F17.210 Nicotine dependence, cigarettes, uncomplicated; Z79.899 Other long term (current) drug therapy
CPT/HCPCS: 73502; 99282

== ENCOUNTER → 2021-01-09 17:55 | Outpatient (CLI) | payer MEDICARE, MEDICAID, SELFPAY ==
[2021-01-09 18:28] LABS: Basophils % 0.5 % (0.1-2.0); Eosinophils # 0.1 K/mm3 (0.0-0.4); Eosinophils % 1.4 % (0.1-12.0); Hematocrit 44.2 % (42.0-52.0); Hemoglobin 14.4 g/dL (14.1-18.0); Lymphocytes % 23.6 % (10-50); Mean Corpuscular HGB Conc 32.5 g/dL (31.8-35.4); Mean Corpuscular Volume 92.4 fl (80-94); Mean Platelet Volume 9.7 fl (7.4-10.4); Monocytes # 0.3 K/mm3 (0.1-1.0); Monocytes % 7.4 % (1.7-9.3); Neutrophils # 2.8 K/mm3 (1.8-7.8); Neutrophils % 67.1 % (37.0-80.0); Platelet Count 126 K/mm3 (142-424); Red Blood Count 4.79 M/mm3 (4.60-6.20); Red Cell Distribution Width 14.1 % (11.5-17.5); White Blood Count 4.1 K/mm3 (4.8-10.8)
[2021-01-09 19:20] LABS: Chloride 104 mmol/L (98-107); Sodium 141 mmol/L (136-145)
[2021-01-09 19:21] LABS: Potassium 4.3 mmoL/L (3.5-5.1)
[2021-01-09 19:23] LABS: Alanine Aminotransferase 12 U/L (12-78); Albumin Level 4.2 g/dl (3.5-5.0); Albumin/Globulin Ratio 1.3 (1.1-1.8); Alkaline Phosphatase 84 U/L (38-126); Anion Gap 11.3 mEq/L (5-15); Aspartate Amino Transferase 25 U/L (17-59); Bilirubin,Total 0.6 mg/dl (0.2-1.3); Blood Urea Nitrogen 10 mg/dl (9-20); Calcium 9.7 mg/dl (8.4-10.2); Carbon Dioxide 30 mmol/L (22.0-30.0); Cholesterol 161 mg/dl (140-200); Estimated Glomerular Filt Rate 113 ml/min (>60); GFR (African American) 137 ML/MIN (>60); Globulin 3.2 g/dL (1.3-3.2); Glucose 186 mg/dl (74-100); Total Protein,Serum 7.4 g/dl (6.3-8.2); Triglycerides 64 mg/dl (30-150); VLDL Cholesterol 13 mg/dL (0-40)
[2021-01-09 19:24] LABS: Chol/HDL Ratio 2.8 (1-3.5); HDL Cholesterol 57 mg/dl (40-60)
[2021-01-09 19:36] LABS: Direct LDL Cholesterol 81.09 mg/dL (100-129)
[2021-01-09 19:57] LABS: T4 (Thyroxine) 9.3 ug/dl (5.53-11.0)
[2021-01-09 20:11] LABS: Thyroid Stimulating Hormone 0.56 uIU/mL (0.465-4.68)
== END ==
PROVIDERS: Visit Provider Nurse Practitioner Family
DX: E11.9 Type 2 diabetes mellitus without complications (principal); G62.9 Polyneuropathy, unspecified; Z79.84 Long term (current) use of oral hypoglycemic drugs
CPT/HCPCS: 80053; 80061; 84436; 84443; 85025

== ENCOUNTER → 2021-01-10 16:07 | Outpatient (CLI) | payer MEDICARE, MEDICAID, SELFPAY ==
[2021-01-10 16:49] LABS: Hemoglobin A1C 6.6 % (4.0-6.0)
== END ==
PROVIDERS: Visit Provider Nurse Practitioner Family
DX: E11.9 Type 2 diabetes mellitus without complications (principal); Z79.84 Long term (current) use of oral hypoglycemic drugs
CPT/HCPCS: 83036

== ENCOUNTER → 2021-01-25 11:08 | Outpatient (CLI) | payer MEDICARE, MEDICAID, SELFPAY ==
[2021-01-26 09:16] LABS: Estradiol 48.3 pg/mL (7.6-42.6)
[2021-01-31 11:21] LABS: Testosterone, Total, LC/MS 1723.4 ng/dL (264.0-916.0); Testosterone,Free 16.2 pg/mL (6.6-18.1)
== END ==
PROVIDERS: Visit Provider Urology
DX: E29.1 Testicular hypofunction (principal)
CPT/HCPCS: 36415; 82670; 84402; 84403

== ENCOUNTER → 2021-07-26 11:16 | Outpatient (CLI) | payer MEDICARE, MEDICAID, SELFPAY ==
[2021-07-26 11:22] LABS: MANUAL DIFFERENTIAL MANUAL DIFFERENTIAL (MANUAL DIFF)
[2021-07-26 11:57] LABS: Basophils % 0.4 % (0.1-2.0); Eosinophils # 0.1 K/mm3 (0.0-0.4); Eosinophils % 1.9 % (0.1-12.0); Hematocrit 46.2 % (42.0-52.0); Hemoglobin 14.7 g/dL (14.1-18.0); Lymphocytes # 0.9 K/mm3 (0.7-4.5); Lymphocytes % 20.5 % (10-50); Mean Corpuscular HGB Conc 31.7 g/dL (31.8-35.4); Mean Corpuscular Hemoglobin 29.4 pg (27.0-31.2); Mean Corpuscular Volume 92.5 fl (80-94); Mean Platelet Volume 9.6 fl (7.4-10.4); Monocytes # 0.4 K/mm3 (0.1-1.0); Monocytes % 7.7 % (1.7-9.3); Neutrophils # 3.1 K/mm3 (1.8-7.8); Neutrophils % 69.5 % (37.0-80.0); Platelet Count 120 K/mm3 (142-424); Red Cell Distribution Width 15.4 % (11.5-17.5); White Blood Count 4.5 K/mm3 (4.8-10.8)
[2021-07-26 12:21] LABS: Alanine Aminotransferase 16 U/L (12-78); Albumin Level 4.3 g/dl (3.5-5.0); Alkaline Phosphatase 87 U/L (38-126); Aspartate Amino Transferase 25 U/L (17-59); Bilirubin,Direct 0.1 mg/dl (0.0-0.4); Bilirubin,Indirect 0.4 mg/dL (0.0-0.9); Bilirubin,Total 0.5 mg/dl (0.2-1.3); Bilirubin,Unconjugated 0.4 mg/dL (0.0-1.1)
[2021-07-26 12:53] LABS: Prostate Specific Ag Screen 0.4 ng/ml (0.0-4.0)
[2021-07-26 14:06] LABS: Eosinophils % 1 % (0-3); Lymphocytes % 23 % (10-50); Monocytes % 1 % (2-9); Neutrophils % 75 % (42-76); Total Cells Counted 100
[2021-07-26 14:07] LABS: Platelet Estimate Slight Decrease; RBC Morphology Normal
[2021-07-27 08:42] LABS: Estradiol <5.0 pg/mL (7.6-42.6)
[2021-08-06 04:11] LABS: Testosterone, Total, LC/MS 193.1 ng/dL (264.0-916.0); Testosterone,Free 1.7 pg/mL (6.6-18.1)
== END ==
PROVIDERS: Visit Provider Urology
DX: E29.1 Testicular hypofunction (principal); Z12.5 Encounter for screening for malignant neoplasm of prostate
CPT/HCPCS: 36415; 80076; 82670; 84402; 84403; 85007; 85014; 85018; 85048; 85049; G0103

== ENCOUNTER → 2021-07-31 16:57 | Outpatient (CLI) | payer MEDICARE, MEDICAID, SELFPAY ==
[2021-07-31 13:31] LABS: Chloride 104 mmol/L (98-107)
[2021-07-31 13:32] LABS: Potassium 4.7 mmoL/L (3.5-5.1); Sodium 139 mmol/L (136-145)
[2021-07-31 13:34] LABS: Alanine Aminotransferase 19 U/L (12-78); Albumin Level 4.1 g/dl (3.5-5.0); Albumin/Globulin Ratio 1.5 (1.1-1.8); Alkaline Phosphatase 97 U/L (38-126); Anion Gap 8.7 mEq/L (5-15); Aspartate Amino Transferase 31 U/L (17-59); Bilirubin,Total 0.7 mg/dl (0.2-1.3); Blood Urea Nitrogen 14 mg/dl (9-20); Carbon Dioxide 31 mmol/L (22.0-30.0); Estimated Glomerular Filt Rate 84 ml/min (>60); GFR (African American) 102 ML/MIN (>60); Globulin 2.7 g/dL (1.3-3.2); Total Protein,Serum 6.8 g/dl (6.3-8.2)
[2021-07-31 13:35] LABS: Calcium 10.2 mg/dl (8.4-10.2); Chol/HDL Ratio 2.7 (1-3.5); Cholesterol 167 mg/dl (140-200); Glucose 150 mg/dl (74-100); HDL Cholesterol 63 mg/dl (40-60); Triglycerides 67 mg/dl (30-150); VLDL Cholesterol 13 mg/dL (0-40)
[2021-07-31 13:46] LABS: Direct LDL Cholesterol 98.14 mg/dL (100-129)
[2021-07-31 14:20] LABS: Hemoglobin A1C 6.8 % (4.0-6.0)
== END ==
PROVIDERS: Visit Provider Nurse Practitioner Family
DX: E11.42 Type 2 diabetes mellitus with diabetic polyneuropathy (principal); Z79.4 Long term (current) use of insulin
CPT/HCPCS: 80053; 80061; 82043; 83036

== ENCOUNTER 2021-09-24 11:59 | Emergency (ER) | payer MEDICARE, MEDICAID, SELFPAY ==
[2021-09-24 12:01] VITALS: BP 188/91; PULSE 66; RESP 18; TEMP 37.2; O2SAT 95; BMI 29.8
--- NOTE | 2021-09-24 12:13 | XR_ITS ---
FINAL REPORT CLINICAL HISTORY: cough FINDINGS: A single portable view of the chest was obtained. The heart size and pulmonary vascularity are within normal limits. The mediastinum is within normal limits. There is mild bibasilar atelectasis or scarring. The bony thorax is intact. IMPRESSION: Mild bibasilar atelectasis or scarring. Reviewed, Interpreted and Dictated by Peter Beth III, MD Transcribed by Lacey Jamison Authenticated and [facility]
--- NOTE | 2021-09-24 12:13 | CT_ITS ---
FINAL REPORT CLINICAL HISTORY: swelling of abdomen with upper abd pain FINDINGS: Axial CT images of the abdomen and pelvis were obtained without intravenous contrast. Coronal reformatted images were also obtained.This study was performed with techniques to keep radiation doses as low as reasonably achievable (ALARA). Individualized dose reduction techniques using automated exposure control or adjustment of mA and/or kV according to the patient's size were employed. Abdomen: There are several calcified granulomas in the left lung base. There is moderate left hydronephrosis without hydroureter. There is a mass in the upper pole of the left kidney measuring 24 mm with a small calcification in its periphery, nonspecific, favor complicated cyst over neoplasm. There is mild nonspecific gallbladder wall thickening. The liver has a lobular contour consistent with cirrhosis. The spleen is enlarged measuring 15 cm in length. The pancreas as an unremarkable, unenhanced appearance. No inflammatory process is identified. Pelvis: The appendix is normal. There is no evidence of ureteral dilation or ureteral stone. IMPRESSION: Cirrhosis with splenomegaly which likely represents portal hypertension. Moderate left hydronephrosis. Right renal mass, complex cyst versus neoplasm. Consider renal mass protocol CT for further evaluation. Reviewed, Interpreted and Dictated by Peter Beth III, MD Transcribed by Lacey Jamison Authenticated and [facility]
[2021-09-24 12:29] LABS: Basophils # 0.1 K/mm3 (0-0.2); Basophils % 1.3 % (0.1-2.0); Eosinophils # 0.1 K/mm3 (0.0-0.4); Eosinophils % 2.1 % (0.1-12.0); Hematocrit 44.4 % (42.0-52.0); Hemoglobin 14.9 g/dL (14.1-18.0); Lymphocytes # 1.3 K/mm3 (0.7-4.5); Lymphocytes % 23.2 % (10-50); Mean Corpuscular HGB Conc 33.6 g/dL (31.8-35.4); Mean Corpuscular Hemoglobin 30.1 pg (27.0-31.2); Mean Corpuscular Volume 89.6 fl (80-94); Mean Platelet Volume 8.7 fl (7.4-10.4); Monocytes # 0.4 K/mm3 (0.1-1.0); Neutrophils # 3.6 K/mm3 (1.8-7.8); Neutrophils % 65.5 % (37.0-80.0); Platelet Count 127 K/mm3 (142-424); Red Blood Count 4.96 M/mm3 (4.60-6.20); Red Cell Distribution Width 16.6 % (11.5-17.5); White Blood Count 5.6 K/mm3 (4.8-10.8)
[2021-09-24 12:31] LABS: Chloride 105 mmol/L (98-107); Potassium 4.4 mmoL/L (3.5-5.1); Sodium 140 mmol/L (136-145)
[2021-09-24 12:33] LABS: Alanine Aminotransferase 28 U/L (12-78); Alkaline Phosphatase 88 U/L (38-126); Aspartate Amino Transferase 41 U/L (17-59); Bilirubin,Total 0.5 mg/dl (0.2-1.3); Blood Urea Nitrogen 15 mg/dl (9-20); Estimated Glomerular Filt Rate 84 ml/min (>60); GFR (African American) 102 ML/MIN (>60)
[2021-09-24 12:34] LABS: Albumin Level 4.4 g/dl (3.5-5.0); Albumin/Globulin Ratio 1.4 (1.1-1.8); Anion Gap 13.4 mEq/L (5-15); Calcium 9.9 mg/dl (8.4-10.2); Carbon Dioxide 26 mmol/L (22.0-30.0); Globulin 3.1 g/dL (1.3-3.2); Glucose 171 mg/dl (74-100); Lipase 61 U/L (23-300); Total Protein,Serum 7.5 g/dl (6.3-8.2)
[2021-09-24 12:36] LABS: Activated Partial Thrombo Time 25.9 seconds (22.8-30.6); INR 0.95 (0.9-1.1); Prothrombin Time 10.8 seconds (10.1-12.5)
--- NOTE | 2021-09-24 12:52 | HMH.EDABDPAI ---
ED Disposition Clinical Impression: Cirrhosis of liver Qualifiers: Hepatic cirrhosis type: other cirrhosis Qualified Code(s): K74.69 - Other cirrhosis of liver Disposition: Home, Self-Care Condition on Discharge: Good Instructions: DI for Cirrhosis Referrals: Geoffrey West MD [Primary Care Provider] - - Critical Care Critical Care Time: No Attestation: On 09/24/21, the high probability of a clinically significant, sudden or life threatening deterioration of the following system(s) required my full and direct attention, intervention and personal management. The time I documented below is in addition to time spent performing reported procedures but includes the following listed in this critical care notation. Medical Decision Making - Medical Records Medical records reviewed: Yes: I reviewed the patient's medical records. - Garo Inquiry Pt receiving controlled substance: No Vital Signs: 09/24/21 12:01 Temperature 98.9 F Temperature Source Oral Pulse Rate [Left Radial] 66 Respiratory Rate 18 Blood Pressure [Right Arm] 188/91 H Blood Pressure Mean [Right Arm] 123 Blood Pressure Source [Right Arm] Automatic Cuff Blood Pressure Position [Right Arm] Sitting 02 Sat by Pulse Oximetry 95 Oxygen Delivery Method Room Air - Lab Data Lab Results 09/24/21 12:15: WBC 5.6, RBC 4.96, Hgb 14.9, Hct 44.4, MCV 89.6, MCH 30.1, MCHC 33.6, RDW 16.6, Plt Count 127 L, MPV 8.7, Neut % (Auto) 65.5, Lymph % (Auto) 23.2, Andrew % (Auto) 8.0, Eos % (Auto) 2.1, Baso % (Auto) 1.3, Neut # (Auto) 3.6, Lymph # (Auto) 1.3, Andrew # (Auto) 0.4, Eos # (Auto) 0.1, Baso # (Auto) 0.1 09/24/21 12:15: PT 10.8, INR 0.95, APTT 25.9 09/24/21 12:15: Sodium 140, Potassium 4.4, Chloride 105, Carbon Dioxide 26, Anion Gap 13.4, BUN 15, Creatinine 0.90, Estimated GFR 84, Est GFR ( Amer) 102, Glucose 171 H, Calcium 9.9, Total Bilirubin 0.5, AST 41, ALT 28, Alkaline Phosphatase 88, Total Protein 7.5, Albumin 4.4, Globulin 3.1, Albumin/Globulin Ratio 1.4, Lipase 61 09/24/21 13:30: Urine Color Yellow, Urine Appearance Clear, Urine pH 6.5, Ur Specific [place] 1.010, Urine Protein Negative, Urine Glucose (UA) Negative, Urine Ketones Negative, Urine Blood Negative, Urine Nitrate Negative, Urine Bilirubin Negative, Urine Urobilinogen 4.0, Ur Leukocyte Esterase Negative, Urine RBC Occasional, Urine WBC Occasional, Ur Squamous Epith Cells Occasional Result diagrams: 09/24/21 12:15 09/24/21 12:15 - Radiology Data #1 Image(s): Chest Image Reviewed: Yes I reviewed the patient's radiology results, Yes I reviewed the patient's radiology image, Yes I have reviewed radiologist's interpretation IMPRESSION: Mild bibasilar atelectasis or scarring. - CT Data CT Scan: Abdomen, Pelvis Time Received: 14:[address] Reviewed: Yes: I have reviewed the patient's CT results, I have viewed the radiologist's interpretation Findings Narrative: IMPRESSION: Cirrhosis with splenomegaly which likely represents portal hypertension. Moderate left hydronephrosis. Right renal mass, complex cyst versus neoplasm. Consider renal mass protocol CT for further evaluation. - Reevaluation(s) Time: 14:32 Reevaluation #1: On reevaluation, patient is feeling better. Laboratory work was unremarkable. Patient does have evidence of cirrhosis as well as splenomegaly. Likely contributing to his symptoms. Patient will continue his scheduled outpatient follow-up with hepatology. Given strict return precautions. Verbalized understanding. Medical Decision Narrative: 66-year-old male presenting to the emergency department with some abdominal swelling. Patient's symptoms seem consistent with ascites. Patient has a history of Tracy. There is no fever or evidence of SBP at this time. Work-up initiated. Abdominal Pain HPI - General Chief Complaint: Abdominal Pain Stated Complaint: swollen stomach Time Seen by Provider: 09/24/21 12:05 [facility]
[2021-09-24 13:35] LABS: Microscopic, Urine URINE MICROSCOPIC (MICROSCOPIC)
[2021-09-24 13:40] LABS: Appearance,Urine CLEAR (Clear); Bilirubin,Urine Negative (Negative); Blood, Urine Negative (Negative); Color,Urine YELLOW (Yellow); Glucose,Urine (UA) Negative (Negative); Ketones,Urine Negative (Negative); Leukocyte Esterase,Urine Negative (Negative); Nitrate,Urine Negative (Negative); PH,Urine 6.5 (5.0-8.5); Protein,Urine Negative (Negative)
[2021-09-24 14:16] LABS: RBC,Urine Occasional #/hpf (0-3); Squamous Epithelial Cell,Urine Occasional #/hpf (0-5); WBC,Urine Occasional #/hpf (0-3)
[2021-09-24 15:05] VITALS: BP 156/82; PULSE 62; RESP 16; TEMP 37.2; O2SAT 97
== END 2021-09-24 15:06 | disposition home or self-care (01) ==
PROVIDERS: Emergency Provider Emergency Medicine; PCP Internal Medicine Adolescent Medicine
DX: K74.69 Other cirrhosis of liver (principal); R18.8 Other ascites; R16.1 Splenomegaly, not elsewhere classified; R06.02 Shortness of breath; I10 Essential (primary) hypertension; K76.9 Liver disease, unspecified; E11.9 Type 2 diabetes mellitus without complications; F41.9 Anxiety disorder, unspecified; F32.A Depression, unspecified; F17.210 Nicotine dependence, cigarettes, uncomplicated; Z79.84 Long term (current) use of oral hypoglycemic drugs; Z79.899 Other long term (current) drug therapy; Z80.9 Family history of malignant neoplasm, unspecified
CPT/HCPCS: 71045; 74176; 80053; 81001; 83690; 85025; 85610; 85730; 99285

== ENCOUNTER → 2021-10-08 09:12 | Outpatient (CLI) | payer MEDICARE, MEDICAID, SELFPAY ==
[2021-10-08 09:22] LABS: Microscopic, Urine URINE MICROSCOPIC (MICROSCOPIC)
[2021-10-08 09:40] LABS: Basophils % 0.6 % (0.1-2.0); Eosinophils # 0.1 K/mm3 (0.0-0.4); Eosinophils % 1.3 % (0.1-12.0); Hematocrit 46.2 % (42.0-52.0); Hemoglobin 14.6 g/dL (14.1-18.0); Lymphocytes # 1.3 K/mm3 (0.7-4.5); Lymphocytes % 21.3 % (10-50); Mean Corpuscular HGB Conc 31.6 g/dL (31.8-35.4); Mean Corpuscular Hemoglobin 28.7 pg (27.0-31.2); Mean Corpuscular Volume 90.9 fl (80-94); Mean Platelet Volume 10.5 fl (7.4-10.4); Monocytes # 0.6 K/mm3 (0.1-1.0); Monocytes % 9.3 % (1.7-9.3); Neutrophils % 67.4 % (37.0-80.0); Platelet Count 116 K/mm3 (142-424); Red Blood Count 5.08 M/mm3 (4.60-6.20); Red Cell Distribution Width 16.1 % (11.5-17.5)
[2021-10-08 09:41] LABS: Appearance,Urine CLEAR (Clear); Bilirubin,Urine Negative (Negative); Blood, Urine TRACE-L (Negative); Color,Urine YELLOW (Yellow); Glucose,Urine (UA) Negative (Negative); Ketones,Urine Negative (Negative); Leukocyte Esterase,Urine Negative (Negative); Nitrate,Urine Negative (Negative); PH,Urine 5.5 (5.0-8.5); Protein,Urine 1+ (Negative); Specific Gravity, Urine 1.025 (1.005-1.030)
[2021-10-08 10:01] LABS: Bacteria,Urine Trace /lpf; Squamous Epithelial Cell,Urine Occasional #/hpf (0-5)
[2021-10-08 10:02] LABS: Albumin Level 4.4 g/dl (3.5-5.0); Anion Gap 11.9 mEq/L (5-15); Blood Urea Nitrogen 13 mg/dl (9-20); Carbon Dioxide 30 mmol/L (22.0-30.0); Chloride 103 mmol/L (98-107); Estimated Glomerular Filt Rate 84 ml/min (>60); GFR (African American) 102 ML/MIN (>60); Glucose 144 mg/dl (74-100); Phosphorous 3.2 mg/dl (2.5-4.5); Potassium 3.9 mmoL/L (3.5-5.1); Sodium 141 mmol/L (136-145)
[2021-10-08 10:14] LABS: Intact Parathyroid Hormone 49.7 pg/mL (7.5-53.5)
[2021-10-08 10:17] LABS: Creatinine,Urine Random 125 mg/dL (Not Estab.)
[2021-10-08 10:19] LABS: 25-OH Vitamin D, Total 23.6 ng/mL (30-100)
== END ==
PROVIDERS: Internal Medicine Nephrology; Visit Provider Internal Medicine Adolescent Medicine
DX: R80.9 Proteinuria, unspecified (principal); E55.9 Vitamin D deficiency, unspecified
CPT/HCPCS: 36415; 80069; 81001; 82306; 82570; 83970; 84155; 85025

== ENCOUNTER → 2021-10-11 14:24 | Outpatient (POV) | payer MEDICARE, MEDICAID, SELFPAY | PROVIDERS: Visit Provider Internal Medicine Nephrology | DX: Z00.00 Encounter for general adult medical examination without abnormal findings (principal) ==

== ENCOUNTER 2021-11-11 00:54 | Emergency (ER) | payer MEDICARE, MEDICAID, SELFPAY ==
[2021-11-11 00:55] VITALS: BP 164/80; PULSE 86; RESP 18; TEMP 36.7; O2SAT 98; BMI 30.5
[2021-11-11 01:36] LABS: POC Glucose,Bedside 152 (70-110)
--- NOTE | 2021-11-11 01:39 | XR_ITS ---
PROCEDURE INFORMATION: Exam: XR Left Foot Exam date and time: 11/11/2021 1:48 AM Age: 66 years old Clinical indication: Swelling, leg or foot TECHNIQUE: Imaging protocol: Radiologic exam of the Left foot. Views: 3 or more views. COMPARISON: No relevant prior studies available. FINDINGS: Bones/joints: Exostosis at the medial base of the 1st distal phalanx. Bipartite medial sesamoid at the 1st metatarsophalangeal joint. Calcaneal enthesopathy. Round subcentimeter focal heterotopic ossification in the plantar fascia. No acute fracture or malalignment. Lisfranc joint appears normal in these non-weightbearing radiographs. Degenerative osteoarthropathy of the 1st metatarsophalangeal and metatarsosesamoid joints. Os vesalianum pedis incidentally noted. Soft tissues: Unremarkable. IMPRESSION: 1. No acute osseous abnormality in the left foot. 2. Exostosis at the medial base of the 1st distal phalanx. 3. Round subcentimeter focal heterotopic ossification in the plantar fascia. 4. Degenerative osteoarthropathy of the 1st metatarsophalangeal and metatarsosesamoid joints. 5. Calcaneal enthesopathy.
--- NOTE | 2021-11-11 01:40 | HMH.EDGENADL ---
ED Disposition Clinical Impression: Swelling of left foot Disposition: Home, Self-Care Condition on Discharge: Good Additional Instructions: Please get your foot elevated and use the wrap to get the fluid out. Would also recommend compression socks Referrals: Geoffrey West MD [Primary Care Provider] - - Critical Care Critical Care Time: No Attestation: On 11/11/21, the high probability of a clinically significant, sudden or life threatening deterioration of the following system(s) required my full and direct attention, intervention and personal management. The time I documented below is in addition to time spent performing reported procedures but includes the following listed in this critical care notation. Medical Decision Making - Medical Records Medical records reviewed: Yes: I reviewed the patient's medical records. - Garo Inquiry Pt receiving controlled substance: No Vital Signs: 11/11/21 00:55 Temperature 98.1 F Temperature Source Oral Pulse Rate [Right] 86 Respiratory Rate 18 Blood Pressure [Right Arm] 164/80 H Blood Pressure Mean [Right Arm] 108 Blood Pressure Source [Right Arm] Automatic Cuff 02 Sat by Pulse Oximetry 98 Oxygen Delivery Method Room Air - Lab Data Lab Results 11/11/21 01:29: POC Glucose 152 H Orders (Tests/Meds): ED MEDICATIONS Discontinued Medications Generic Name Dose Route Start Last Admin Trade Name Freq PRN Reason Stop Dose Admin Ketorolac Tromethamine 15 mg 11/11/21 01:40 11/11/21 02:23 Ketorolac 30mg/Ml Vial IM 11/11/21 01:41 15 mg ONCE ONE Administration ORDERS Category Date Time Status XR foot LT min 3V Stat Exams 11/11/21 01:39 Taken Medical Decision Narrative: In review this is a 66-year-old male who presents with left foot swelling. Hemodynamically stable and nontoxic-appearing. His blood sugar was in the 150s which is relatively under control for him being diabetic. His foot does have some pitting edema which is likely dependent swelling. I talked him about symptomatic care of this. I also said that we would do some x-rays to evaluate for underlying fracture. This was independently reviewed and I did not see any obvious fractures so that we can use compression and elevation as well as having him follow-up with his PCP to talk about his diuretic. At this point stable for discharge. Return precautions given. General Adult HPI - General Chief complaint: PAIN Stated complaint: left foot pain; diabetic Time Seen by Provider: 11/11/21 01:15 Mode of Arrival: Family Vehicle Limitations: No Limitations Description of Symptoms (Recalled from ER Triage Doc. by RN): Pt c/o upper abd pain, n/v, and l foot pain & numbness. States he feels like my sugar might be messed up . He reports I am seeing a bunch of docotors for stage 3 liver, my kidneys, and my stomach . States he is supposed to have an EGD in January. Denies any fever, chills. Pedal pulses 2+. 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 Bedside FS 152. - History of Present Illness HPI narrative: Patient is a 66-year-old male who presents with concern for left foot tingling. He says that his foot feels like it is more swollen than normal. He says that he was lying in bed trying to sleep but it started throbbing so he wanted to come in for evaluation. He says he also has epigastric pain but he says that this is chronic and he is currently seeing his physicians for continued work-up of this. He says that he was concerned his blood sugar might be high as well. He says he also has some swelling in his right foot as well. He says that he used to be of higher in his leg but it is gotten better. He says he does take a water pill. - Related Data Home Medications Medication Instructions Recorded Confirmed testosterone cypionate 200 mg/mL 250 mg IM Q2W 12/04/17 07/31/21 intramuscular kit pantoprazole 20 mg tablet,delayed 20 mg PO DAILY 10/02/20 07/31/21 release Previous Rx's Medicatio
[2021-11-11 02:54] VITALS: BP 160/78; PULSE 78; RESP 18; TEMP 36.8; O2SAT 99
== END 2021-11-11 02:56 | disposition home or self-care (01) ==
PROVIDERS: Emergency Provider Student in an Organized Health Care Education/Training Program; PCP Internal Medicine Adolescent Medicine
DX: M79.89 Other specified soft tissue disorders (principal); E11.9 Type 2 diabetes mellitus without complications; Z79.899 Other long term (current) drug therapy
CPT/HCPCS: 73630; 82962; 99283

== ENCOUNTER → 2021-12-12 10:44 | Outpatient (POV) | payer MEDICARE, MEDICAID, SELFPAY ==
[2021-12-12 11:44] VITALS: BP 172/85; PULSE 102; RESP 18; TEMP 36.2; O2SAT 96; BMI 30.7
--- NOTE | 2021-12-12 12:05 | EXP.PAIN.OV ---
HPI Data of Consult Patient: new to practice Consult date: 12/12/21 Requesting Physician: Anna Marie French APRN Primary Care Provider: Geoffrey West MD Consult Narrative Reason for consult: Bilateral leg pain, low back pain, bilateral feet pain History of present illness: Mr. Tracy is a 66 year old male who presents today as a new patient. He is a referral from Dr. West's office. Today the patient rates his pain a 3 out of 10 and states is primarily in his lower extremities that radiates to his feet. Patient describes this as a twisting, [id number]/burning sensation that is worse at night. He states he does have cramping in his calves. He states he often times is not able to get sleep due to the pain. Patient frequently has to get up and ambulates during the night to improve his symptoms. Patient denies any new trauma or injury. He states he has had back issues for years that is led to chronic back pain. 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 Patient has tried compounding cream and topical lotions [id number] with no improvement of his symptoms. Patient has also been prescribed gabapentin in the past however he states he saw no improvement and discontinued use. Patient has not had physical therapy in the past however states he has done home exercises and stretching for longer than 6 weeks with no improvement of his symptoms. He states years ago he lost significant amounts of weight and increased his activity walking daily however his symptoms continued. His Garo is [id number]. It has been reviewed and appropriate. CC: Anna Marie French APRN [facility] Medical History (Updated 12/12/21 @ 12:13 by Anna Marie French APRN) Diabetes HTN (hypertension) Social History Smoking Status: Current every day smoker tobacco type: cigarettes packs per day: 1 second hand exposure: No alcohol intake: never counseling provided: none substance use type: denies use current occupational status: retired Travel in the last 8 weeks: None household members: none housing: house current occupational exposures/hazards: No caffeine: Yes Review of Systems Review of Systems Review of systems:: pertinent systems reviewed and negative unless documented below Review of systems (narrative): Review of Systems: General: No recent weight changes, no fever, no sleep disturbances Respiratory: No cough, no shortness of air, no recurring pulmonary infections Cardiovascular/peripheral vascular: No chest pain, no palpitations, no edema, no shortness of breath Gastrointestinal: No new onset incontinence, normal bowel movements reported Genitourinary: No new onset incontinence Musculoskeletal: Low back pain, bilateral leg pain, feet pain Psychiatric: [Normal mood/affect] Neurological: [Denies weakness in extremities], [denies balance issues] Meds Home Medications and Allergies Home Medications Medication Instructions Recorded Confirmed Type testosterone cypionate 200 mg/mL 250 mg IM Q2W Supplement 12/04/17 12/12/21 History intramuscular kit pantoprazole 20 mg tablet,delayed 20 mg PO DAILY STOMACH 10/02/20 12/12/21 History release escitalopram oxalate 20 mg tablet See Rx Instructions .Route 12/12/21 12/12/21 History .COMPLEX MOOD gabapentin 600 mg tablet 600 mg PO QID Pain 12/12/21 12/12/21 History lisinopril 20 See Rx Instructions .Route 12/12/21 12/12/21 History mg-hydrochlorothiazide 12.5 mg .COMPLEX BLOOD PRESSURE tablet metformin 1,000 mg tablet See Rx Instructions .Route 12/12/21 12/12/21 History .COMPLEX Diabetes semaglutide 0.25 mg or 0.5 mg (2 0.25 mg SQ WEEKLY Diabetes 12/12/21 12/12/21 History mg/1.5 mL) subcutaneous pen injector (Ozempic) New Prescriptions to Start Presc
== END ==
PROVIDERS: PCP Internal Medicine Adolescent Medicine; Visit Provider Nurse Practitioner Family
DX: M79.604 Pain in right leg (principal); M79.605 Pain in left leg; M54.50 Low back pain, unspecified; M79.671 Pain in right foot; M79.672 Pain in left foot
CPT/HCPCS: 99202; G0463

== ENCOUNTER → 2021-12-21 08:02 | Outpatient (CLI) | payer MEDICARE, MEDICAID, SELFPAY ==
--- NOTE | 2021-12-21 08:06 | MR_ITS ---
FINAL REPORT CLINICAL HISTORY: LOW BACK PAIN, BILATERAL LEG PAIN. PAIN, NUMBNESS, TINGLING BILATERAL LEGS FROM KNEES DOWN. SYMPTOMS [id number]. NO INJURY OR TRAUMA. INTERMITTENT LOW BACK PAIN. COMPARISON: February 2020 FINDINGS: Multiplanar MR imaging of the lumbar spine was performed without contrast. On the sagittal T2-weighted images, disc degeneration is seen throughout. There are endplate changes at multiple levels. There are multiple Schmorl's nodes. There are several hemangiomas. The vertebral alignment is normal. There is no evidence of fracture. The conus has an unremarkable appearance. T11-T12: There is an annular bulge with vertebral osteophytes. There is mild right neural foraminal narrowing. T12-L1: There is an annular bulge with vertebral osteophytes. There is mild left neural foraminal narrowing. L1-2: There is an annular bulge with facet arthropathy. There is a small left foraminal disc protrusion. There is mild bilateral neural foraminal narrowing. L2-3: There is an annular bulge, facet arthropathy and vertebral osteophytes. There is mild bilateral neural foraminal narrowing. L3-4: There is an annular bulge, facet arthropathy and vertebral osteophytes. A small central disc protrusion contacts the L4 nerve roots. There is mild central canal stenosis with an AP thecal sac diameter of 7 mm. There is moderate bilateral neural foraminal narrowing. L4-5: There is an annular bulge, facet arthropathy and vertebral osteophytes. There is moderate bilateral neural foraminal narrowing. L5-S1: There is an annular bulge with facet arthropathy. A central disc protrusion contacts the left S1 nerve root. There is severe bilateral neural foraminal narrowing. There is spurring of the SI joints. There is a large cystic area in the left kidney. On the CT from February 2020 there is a sizable parapelvic cyst in this region. IMPRESSION: Multiple disc protrusions with areas of neural foraminal narrowing and central canal stenosis. Reviewed, Interpreted and Dictated by Peter Beth III, MD Transcribed by Darnell Hendricks Authenticated and [facility]
== END ==
PROVIDERS: PCP Internal Medicine Adolescent Medicine; Visit Provider Nurse Practitioner Family
DX: M54.50 Low back pain, unspecified (principal); M79.605 Pain in left leg; M79.604 Pain in right leg
CPT/HCPCS: 72148; 76376

== ENCOUNTER → 2022-01-01 10:40 | Outpatient (CLI) | payer MEDICARE, MEDICAID, SELFPAY ==
[2022-01-01 10:45] LABS: MANUAL DIFFERENTIAL MANUAL DIFFERENTIAL (MANUAL DIFF)
[2022-01-01 11:01] LABS: Basophils % 0.7 % (0.1-2.0); Eosinophils # 0.1 K/mm3 (0.0-0.4); Eosinophils % 1.3 % (0.1-12.0); Hematocrit 53.7 % (42.0-52.0); Hemoglobin 17.2 g/dL (14.1-18.0); Lymphocytes # 1.3 K/mm3 (0.7-4.5); Lymphocytes % 20.5 % (10-50); Mean Corpuscular HGB Conc 32.1 g/dL (31.8-35.4); Mean Corpuscular Hemoglobin 29.3 pg (27.0-31.2); Mean Corpuscular Volume 91.1 fl (80-94); Mean Platelet Volume 8.9 fl (7.4-10.4); Monocytes # 0.4 K/mm3 (0.1-1.0); Monocytes % 6.6 % (1.7-9.3); Neutrophils # 4.3 K/mm3 (1.8-7.8); Platelet Count 142 K/mm3 (142-424); Red Blood Count 5.89 M/mm3 (4.60-6.20); White Blood Count 6.1 K/mm3 (4.8-10.8)
[2022-01-01 11:24] LABS: Alanine Aminotransferase 30 U/L (12-78); Albumin Level 4.8 g/dl (3.5-5.0); Alkaline Phosphatase 116 U/L (38-126); Aspartate Amino Transferase 35 U/L (17-59); Bilirubin,Direct 0.1 mg/dl (0.0-0.4); Bilirubin,Indirect 0.3 mg/dL (0.0-0.9); Bilirubin,Total 0.4 mg/dl (0.2-1.3); Bilirubin,Unconjugated 0.4 mg/dL (0.0-1.1); Total Protein,Serum 8.3 g/dl (6.3-8.2)
[2022-01-01 13:59] LABS: Eosinophils % 3 % (0-3); Lymphocytes % 20 % (10-50); Monocytes % 7 % (2-9); Neutrophils % 70 % (42-76); Platelet Estimate Normal; RBC Morphology Normal; Total Cells Counted 100
[2022-01-02 12:34] LABS: Estradiol 19.1 pg/mL (7.6-42.6)
[2022-01-07 16:12] LABS: Testosterone, Total, LC/MS 1638.2 ng/dL (264.0-916.0); Testosterone,Free 22.1 pg/mL (6.6-18.1)
== END ==
PROVIDERS: PCP Internal Medicine Adolescent Medicine; Visit Provider Urology
DX: E34.9 Endocrine disorder, unspecified (principal)
CPT/HCPCS: 36415; 80076; 82670; 84402; 84403; 85007; 85014; 85018; 85048; 85049

== ENCOUNTER → 2022-01-03 10:15 | Outpatient (POV) | payer MEDICARE, MEDICAID, SELFPAY ==
[2022-01-03 11:01] VITALS: BP 143/101; PULSE 100; RESP 18; TEMP 36.8; O2SAT 97; BMI 30.7
--- NOTE | 2022-01-03 12:30 | EXP.PAIN.SOA ---
[facility] Pain Management SOAP Note Subjective:: Patient is a pleasant 66-year-old male who presents today for follow-up of MRI imaging of his lumbar spine. We are currently treating the patient for low back pain, degenerative disc disease of lumbar spine with lumbar radiculopathy symptoms, low back pain, leg pain. Today the patient rates his pain a 5 out of 10. He states the pain is still primarily in his low back that radiates into his lower extremities. Patient describes this as a aching, burning, stabbing sensation that is worse with increased activity. He does state he has numbness and tingling in his lower extremities and leg cramping. Patient is currently managed with gabapentin 600 mg 4 times a day by Dr. Luis M Velazco's office however he states he does not really notice significant improvement with this medication. He denies any side effects from this medication. Patient states he is very active and walks a lot along with riding his motorcycle. he also states he does have chronic neck pain and that had previous imaging of his cervical spine a few years ago at [facility]. Patient states he was treated for his chronic pain for in [facility] where he got injections such as epidurals, trigger point injections, radiofrequency ablation of the cervical spine however he states this did not provide significant improvement of his symptoms. Patient also states he has had surgery on his right shoulder around 1990 and continues to have some pain and limited range of motion. Patient is on testosterone therapy by Dr. Jeffrey Carlos. His Garo is [id number]. It has been reviewed and appropriate. Review of Systems: General: No recent weight changes, no fever, no sleep disturbances Respiratory: No cough, no shortness of air, no recurring pulmonary infections Cardiovascular/peripheral vascular: No chest pain, no palpitations, no edema, no shortness of breath Gastrointestinal: No new onset incontinence, normal bowel movements reported Genitourinary: No new onset incontinence Musculoskeletal: Low back pain, neck pain, leg pain Psychiatric: [Normal mood/affect] Neurological: [Denies weakness in extremities], [denies balance issues] Objective:: Physical Exam: General: Alert and oriented x3, no acute distress, pleasant and cooperative Lungs: Respirations even and unlabored, symmetrical chest expansion Eyes: PERRL Musculoskeletal: Flexion and extension of lumbar [spine] somewhat guarded secondary to pain, [antalgic gait noted] Neurological: Speech clear, no gross sensory deficit CLINICAL HISTORY: LOW BACK PAIN, BILATERAL LEG PAIN. PAIN, NUMBNESS, TINGLING BILATERAL LEGS FROM KNEES DOWN. SYMPTOMS [id number]. NO INJURY OR TRAUMA. INTERMITTENT LOW BACK PAIN. COMPARISON: February 2020 FINDINGS: Multiplanar MR imaging of the lumbar spine was performed without contrast. On the sagittal T2-weighted images, disc degeneration is seen throughout.? There are endplate changes at multiple levels.? There are multiple Schmorl's nodes.? There are several hemangiomas. ? The vertebral alignment is normal.? There is no evidence of fracture.? The conus has an unremarkable appearance. T11-T12:? There is an annular bulge with vertebral osteophytes. There is mild right neural foraminal narrowing.? T12-L1:? There is an annular bulge with vertebral osteophytes.? There is mild left neural foraminal narrowing.? L1-2:? There is an annular bulge with facet arthropathy.? There is a small left foraminal disc protrusion.? There is mild bilateral neural foraminal narrowing.? L2-3:? There is an annular bulge, facet arthropathy and vertebral osteophytes.? There is mild bilateral neural foraminal narrowing.? L3-4:? There is an annular bulge, facet arthropathy and vertebral osteophytes.? A small central disc protrusion contacts the L4 nerve roots.? There is mild central canal stenosis with an AP thecal sac diameter of 7 mm.? There is moderate bilateral neural foraminal narrowing
== END ==
PROVIDERS: PCP Internal Medicine Adolescent Medicine; Visit Provider Nurse Practitioner Family
DX: M51.16 Intervertebral disc disorders with radiculopathy, lumbar region (principal); M48.061 Spinal stenosis, lumbar region without neurogenic claudication; F17.210 Nicotine dependence, cigarettes, uncomplicated; Z79.899 Other long term (current) drug therapy
CPT/HCPCS: 99212; G0463

== ENCOUNTER → 2022-01-10 14:01 | Outpatient (POV) | payer MEDICARE, MEDICAID, SELFPAY | PROVIDERS: Visit Provider Internal Medicine Nephrology | DX: Z00.00 Encounter for general adult medical examination without abnormal findings (principal) ==

== ENCOUNTER 2022-01-22 13:18 | Day surgery (SDC) | payer MEDICARE, MEDICAID, SELFPAY ==
[2022-01-22 13:27] VITALS: BP 167/78; PULSE 65; RESP 18; TEMP 36.5; O2SAT 96; BMI 30.7
[2022-01-22 14:00] VITALS: BP 155/89; PULSE 82; RESP 18; O2SAT 98
[2022-01-22 14:01] VITALS: BP 155/89; PULSE 82; RESP 18; O2SAT 98
[2022-01-22 14:05] VITALS: BP 155/87; PULSE 62; RESP 18; O2SAT 98
--- NOTE | 2022-01-22 14:16 | P.PCN_ITS ---
Procedure Date: 01/22/22 Time: 14:15 Anesthesiologist:: Eran Brunson CRNA Complications:: None Pre-procedure Diagnosis:: Degenerative disc disease lumbar spine multilevels. Lumbar radiculopathy. Post-procedure Diagnosis:: Same. Indications for Procedure:: Patient is a very pleasant 66-year-old male comes our clinic today for his initial injection lumbar spine epidural. He reports low back pain as well as bilateral hip and leg radicular symptoms. He describes the pain as constant, du ll, aching. He rates his pain today 8/10. Procedure Details:: Procedure: Lumbar epidural steroid injection under fluoroscopy Informed consent was obtained and the risks and benefits of the procedure were explained to the patient. The patient was taken to the procedure room and noninvasive monitors placed, including noninvasive blood pressure cuff and pulse oximeter. The back was viewed using C-arm Fluoroscopy and prepped using Chloraprep as a cleansing solution and the L4-L5 interspace was palpated. Skin and subcutaneous tissues were anesthetized using lidocaine 1.5% and a 25-gauge needle. After this, an 18-gauge Touhy epidural needle was placed into the L4-L5 interspace and advanced using fluoroscopic guidance and loss of resistance to ai r until the epidural space was encountered. After confirmation of needle placement in the epidural space, with dye, a solution containing normal saline, 3 mL and Depo-Medrol 80 mg were incrementally injected into the lumbar epidural space. The patient tolerated the procedure well with no complications. The patient was observed in the Pain Clinic and then discharged home neurologically intact. Plan and Disposition:: Patient was discharged without incident
== END 2022-01-22 14:05 | disposition home or self-care (01) ==
LOC: SC.PAINP 13:20
PROVIDERS: PCP Internal Medicine Adolescent Medicine; Visit Provider Nurse Anesthetist, Certified Registered
DX: M51.16 Intervertebral disc disorders with radiculopathy, lumbar region (principal); M48.061 Spinal stenosis, lumbar region without neurogenic claudication
CPT/HCPCS: 62323; J1040

== ENCOUNTER → 2022-02-07 13:06 | Outpatient (POV) | payer MEDICARE, MEDICAID, SELFPAY ==
[2022-02-07 13:52] VITALS: BP 153/90; PULSE 104; RESP 18; TEMP 36.9; O2SAT 92; BMI 30.2
--- NOTE | 2022-02-07 13:54 | EXP.PAIN.SOA ---
[facility] Pain Management SOAP Note Subjective:: Patient is a pleasant 66-year-old male who presents today for follow-up of lumbar epidural steroid injection at L4-L5 on 01/22/2022. We are currently treating the patient for degenerative disc disease of lumbar spine with lumbar radiculopathy symptoms. Today the patient states he has had 0 improvement following this injection in his legs and feet. Patient states he is being seen by Dr. Sheltno who did a bilateral leg epidermal nerve fiber density biopsy and confirmed he does have neuropathy. Patient states he has tried multiple medications including gabapentin, Lyrica, and multiple other medications to treat his pain with minimal improvement. Patient is also tried multiple creams including compounding cream which did not provide any additional relief. Patient states in the past Dr. Bearden has prescribed hydrocodone which did provide improvement of his symptoms. He states it did take the edge off to where he was able to ambulate more frequently with less pain. He is requesting this medication at today's visit. Patient states he has stage III liver and is unable to tolerate acetaminophen as well as has some kidney issues so he has to be very selective regarding taking any NSAIDs. Patient's Garo is [id number]. It has been reviewed and appropriate. Review of Systems: General: No recent weight changes, no fever, no sleep disturbances Respiratory: No cough, no shortness of air, no recurring pulmonary infections Cardiovascular/peripheral vascular: No chest pain, no palpitations, no edema, no shortness of breath Gastrointestinal: No new onset incontinence, normal bowel movements reported Genitourinary: No new onset incontinence Musculoskeletal: Low back pain, bilateral leg/feet pain Psychiatric: [Normal mood/affect] Neurological: [Denies weakness in extremities], [denies balance issues] Objective:: Physical Exam: General: Alert and oriented x3, no acute distress, pleasant and cooperative Lungs: Respirations even and unlabored, symmetrical chest expansion Eyes: PERRL Musculoskeletal: Flexion and extension of lumbar [spine] somewhat guarded secondary to pain, [antalgic gait noted] Neurological: Speech clear, no gross sensory deficit Assessment:: Degenerative disc disease of lumbar spine with lumbar radiculopathy symptoms Plan:: Patient continues to have significant pain in his bilateral feet due to neuropathy. I have counseled the patient regarding trying medications such as gabapentin and pregabalin however the patient states he has already been on these medications and they did not do anything. I have also counseled the patient that he may be a good candidate for a spinal cord stimulator to help with his neuropathy however he is not interested. Patient did state he would be interested in future lumbar epidural steroid injections at times when his back flares up. At this time we will not prescribe any scheduled medications. Patient will follow-up in 1 month. Patient will return to clinic in 1 month for reevaluation of symptoms and follow-up. Patient has been instructed to contact the clinic with any concerns before the next appointment. Dr. Henry has reviewed this note and agrees with this plan of care. This note was dictated using voice recognition software and make contain errors or omissions. [facility] Medical History Diabetes HTN (hypertension) Family History Other No significant family history Social History Smoking Status: Current every day smoker tobacco type: cigarettes packs per day: 1 second hand exposure: No alcohol intake: never counseling provided: none substance use type: denies use current occupational status: retired Travel in the last 8 weeks: None household members: none housing: house current occupational exposures
== END ==
PROVIDERS: PCP Internal Medicine Adolescent Medicine; Visit Provider Nurse Practitioner Family
DX: M51.16 Intervertebral disc disorders with radiculopathy, lumbar region (principal); Z72.0 Tobacco use
CPT/HCPCS: 99212; G0463

== ENCOUNTER → 2022-03-08 12:33 | Outpatient (CLI) | payer MEDICARE, MEDICAID, SELFPAY ==
[2022-03-08 13:37] LABS: Albumin Level 4.8 g/dl (3.5-5.0); Anion Gap 13.8 mEq/L (5-15); Blood Urea Nitrogen 22 mg/dl (9-20); Calcium 10.5 mg/dl (8.4-10.2); Carbon Dioxide 28 mmol/L (22.0-30.0); Chloride 98 mmol/L (98-107); Estimated Glomerular Filt Rate 51 ml/min (>60); GFR (African American) 61 ML/MIN (>60); Glucose 189 mg/dl (74-100); Potassium 4.8 mmoL/L (3.5-5.1); Sodium 135 mmol/L (136-145)
== END ==
PROVIDERS: PCP Internal Medicine Adolescent Medicine; Visit Provider Internal Medicine Nephrology
DX: I10 Essential (primary) hypertension (principal)
CPT/HCPCS: 36415; 80069

== ENCOUNTER → 2022-04-09 12:34 | Outpatient (CLI) | payer MEDICARE, MEDICAID, SELFPAY ==
[2022-04-09 14:22] LABS: Albumin Level 4.6 g/dl (3.5-5.0); Anion Gap 14.3 mEq/L (5-15); Blood Urea Nitrogen 26 mg/dl (9-20); Calcium 9.4 mg/dl (8.4-10.2); Carbon Dioxide 27 mmol/L (22.0-30.0); Chloride 101 mmol/L (98-107); Estimated Glomerular Filt Rate 60 ml/min (>60); GFR (African American) 73 ML/MIN (>60); Glucose 184 mg/dl (74-100); Potassium 4.3 mmoL/L (3.5-5.1); Sodium 138 mmol/L (136-145)
== END ==
PROVIDERS: PCP Internal Medicine Adolescent Medicine; Visit Provider Internal Medicine Nephrology
DX: N18.2 Chronic kidney disease, stage 2 (mild) (principal)
CPT/HCPCS: 36415; 80069

== ENCOUNTER → 2022-05-03 12:58 | Outpatient (CLI) | payer MEDICARE, MEDICAID, SELFPAY ==
--- NOTE | 2022-05-03 13:00 | CA_ITS ---
FINAL REPORT TECHNIQUE: Compression cunningham scale and Doppler evaluation CLINICAL HISTORY: LLE PAIN AND SWELLING FINDINGS: Femoral and popliteal veins show normal compressibility and flow. Visualized portion of the calf veins are patent by Doppler exam. IMPRESSION: No evidence of left lower extremity deep venous thrombosis Reviewed, Interpreted and Dictated by Jeremy Gayle MD Transcribed by Marisol Mccarthy Authenticated and [facility]
== END ==
PROVIDERS: PCP Internal Medicine Adolescent Medicine; Visit Provider Internal Medicine Nephrology
DX: R60.1 Generalized edema (principal)
CPT/HCPCS: 93971

== ENCOUNTER → 2022-07-12 11:26 | Outpatient (CLI) | payer MEDICARE, MEDICAID, SELFPAY ==
[2022-07-12 11:36] LABS: Microscopic, Urine URINE MICROSCOPIC (MICROSCOPIC)
[2022-07-12 12:04] LABS: Basophils % 0.5 % (0.1-2.0); Eosinophils # 0.1 K/mm3 (0.0-0.4); Eosinophils % 1.5 % (0.1-12.0); Hematocrit 52.9 % (42.0-52.0); Hemoglobin 16.6 g/dL (14.1-18.0); Lymphocytes # 1.1 K/mm3 (0.7-4.5); Lymphocytes % 17.2 % (10-50); Mean Corpuscular HGB Conc 31.4 g/dL (31.8-35.4); Mean Corpuscular Hemoglobin 28.7 pg (27.0-31.2); Mean Corpuscular Volume 91.3 fl (80-94); Mean Platelet Volume 9.4 fl (7.4-10.4); Monocytes # 0.4 K/mm3 (0.1-1.0); Neutrophils # 4.7 K/mm3 (1.8-7.8); Neutrophils % 74.9 % (37.0-80.0); Platelet Count 134 K/mm3 (142-424); Red Blood Count 5.79 M/mm3 (4.60-6.20); Red Cell Distribution Width 15.2 % (11.5-17.5); White Blood Count 6.3 K/mm3 (4.8-10.8)
[2022-07-12 12:23] LABS: Albumin Level 4.6 g/dl (3.5-5.0); Anion Gap 11.8 mEq/L (5-15); Blood Urea Nitrogen 21 mg/dl (9-20); Calcium 9.5 mg/dl (8.4-10.2); Carbon Dioxide 25 mmol/L (22.0-30.0); Chloride 100 mmol/L (98-107); Estimated Glomerular Filt Rate 60 ml/min (>60); GFR (African American) 73 ML/MIN (>60); Glucose 242 mg/dl (74-100); Potassium 4.8 mmoL/L (3.5-5.1); Sodium 132 mmol/L (136-145)
[2022-07-12 12:25] LABS: Appearance,Urine CLEAR (Clear); Bilirubin,Urine Negative (Negative); Blood, Urine Negative (Negative); Color,Urine YELLOW (Yellow); Glucose,Urine (UA) 3+ (Negative); Ketones,Urine Negative (Negative); Leukocyte Esterase,Urine Negative (Negative); Nitrate,Urine Negative (Negative); PH,Urine 6.5 (5.0-8.5); Protein,Urine Negative (Negative)
[2022-07-12 12:33] LABS: Creatinine,Urine Random 59 mg/dL (Not Estab.)
[2022-07-12 12:35] LABS: Intact Parathyroid Hormone 57.9 pg/mL (7.5-53.5)
[2022-07-12 12:37] LABS: WBC,Urine Occasional #/hpf (0-3)
[2022-07-12 12:38] LABS: Bacteria,Urine Trace /lpf; Squamous Epithelial Cell,Urine Occasional #/hpf (0-5)
[2022-07-12 12:40] LABS: 25-OH Vitamin D, Total 44.5 ng/mL (30-100)
== END ==
PROVIDERS: PCP Nurse Practitioner Family; Visit Provider Internal Medicine Nephrology
DX: N18.2 Chronic kidney disease, stage 2 (mild) (principal)
CPT/HCPCS: 36415; 80069; 81001; 82306; 82570; 83970; 84155; 85025

== ENCOUNTER → 2022-07-15 14:46 | Outpatient (POV) | payer MEDICARE, MEDICAID, SELFPAY | PROVIDERS: Visit Provider Internal Medicine Nephrology | DX: Z00.00 Encounter for general adult medical examination without abnormal findings (principal) ==

== ENCOUNTER → 2022-08-07 16:04 | Outpatient (CLI) | payer MEDICARE, MEDICAID, SELFPAY ==
--- NOTE | 2022-08-07 16:19 | MR_ITS ---
PROCEDURE INFORMATION: Exam: MR Head Without and With Contrast Exam date and time: 08/07/2022 4:35 PM Age: 67 years old Clinical indication: Other: Pain in right and left arm TECHNIQUE: Imaging protocol: Magnetic resonance imaging of the head without and with contrast. Contrast material: ISOVUE; Contrast volume: 20 ml; Contrast route: IV; COMPARISON: No relevant prior studies available. FINDINGS: Brain: Basilar cisterns are normal. Tectum normal. No acute intracranial process. There are a few punctate areas of altered/abnormal signal intensity within the periventricular white matter likely the radiographic manifestation of early small vessel ischemic changes. Cerebral ventricles: Normal. No ventriculomegaly. Pituitary gland and sella: Sella normal. Pre-pontine region, suprasellar region, and cerebellar angles are normal. Bones/joints: Clivus normal. Calvarium is normal marrow signal. Paranasal sinuses: Normal as visualized. No acute sinusitis. Mastoid air cells: Normal as visualized. No mastoid effusion. Orbital cavities: Unremarkable. Soft tissues: Soft tissues are unremarkable Other findings: No bleed, mass, or shift of structures. Diploe is normal. No diffusion restricted segments. No abnormal enhancement. IMPRESSION: 1. No acute intracranial process. 2. There are a few punctate areas of altered/abnormal signal intensity within the periventricular white matter likely the radiographic manifestation of early small vessel ischemic changes. 3. No abnormal enhancement.
== END ==
PROVIDERS: PCP Nurse Practitioner Family; Visit Provider Nurse Practitioner Family
DX: M79.601 Pain in right arm (principal); M79.602 Pain in left arm
CPT/HCPCS: 70553; A9576

== ENCOUNTER 2022-12-06 18:59 | Emergency (ER) | payer MEDICARE, MEDICAID, SELFPAY ==
[2022-12-06 19:01] VITALS: BP 149/91; PULSE 96; RESP 16; TEMP 36.7; O2SAT 95; BMI 29.8
--- NOTE | 2022-12-06 19:27 | CT_ITS ---
PROCEDURE INFORMATION: Exam: CT Head Without Contrast Exam date and time: 12/06/2022 7:40 PM Age: 67 years old Clinical indication: Injury or trauma; Fall; Blunt trauma (contusions or hematomas); Without loss of consciousness; Additional info: Fall, bilateral ecchymoses TECHNIQUE: Imaging protocol: Computed tomography of the head without contrast. Total images: 289 Radiation optimization: All CT scans at this facility use at least one of these dose optimization techniques: automated exposure control; mA and/or kV adjustment per patient size (includes targeted exams where dose is matched to clinical indication); or iterative reconstruction. REPORTING DATA: Count of CT and Cardiac NM exams in prior 12 months: This patient has received 0 known CTs and 0 known cardiac nuclear medicine studies in the 12 months prior to the current study. COMPARISON: MR HEAD/BRAIN WO/W CON 08/07/2022 4:35 PM FINDINGS: Brain: No acute intracranial hemorrhage, midline shift, or mass. Mild age-related cortical involution. Davis-white interface is maintained. Basilar cisterns are preserved. Minor scattered subcortical and periventricular white matter hypodensity compatible with remote small vessel ischemic changes. Cerebral ventricles: No ventriculomegaly. Paranasal sinuses: Visualized sinuses are unremarkable. No fluid levels. Mastoid air cells: Visualized mastoid air cells are well aerated. Orbital cavities: Orbital globes are intact and symmetric. Dental: Considerable metallic artifact from dental fillings. Bones/joints: No skull fracture or concerning bone lesions. Soft tissues: Soft tissue swelling right greater than left frontal scalp and right paracentral posterior scalp. No radiopaque foreign body. Bilateral preorbital soft tissue swelling. Punctate soft tissue calcification versus foreign body associated with the left upper eyelid. IMPRESSION: 1. No acute intracranial process. 2. Right greater than left frontal, preorbital, and right posterior paracentral scalp soft tissue swelling. 3. Mild chronic intracranial findings.
--- NOTE | 2022-12-06 19:27 | CT_ITS ---
PROCEDURE INFORMATION: Exam: CT Maxillofacial Without Contrast Exam date and time: 12/06/2022 7:45 PM Age: 67 years old Clinical indication: Injury or trauma; Fall; Blunt trauma (contusions or hematomas); Orbit/periorbital; Bilateral; Additional info: Fall, bilateral periorbital ecchymoses TECHNIQUE: Imaging protocol: Computed tomography of the face without contrast. Total images: 285 Radiation optimization: All CT scans at this facility use at least one of these dose optimization techniques: automated exposure control; mA and/or kV adjustment per patient size (includes targeted exams where dose is matched to clinical indication); or iterative reconstruction. REPORTING DATA: Count of CT and Cardiac NM exams in prior 12 months: This patient has received 0 known CTs and 0 known cardiac nuclear medicine studies in the 12 months prior to the current study. COMPARISON: CT HEAD/BRAIN WO CON 12/06/2022 7:40 PM FINDINGS: Orbital cavities: Orbital globes are intact and symmetric. No lens dislocation. No retro-orbital mass, fluid, or air. Bones/joints: Slight cortical offset at the base of the left nasal bone may reflect acute fracture. Otherwise, no acute facial bone fracture. Specifically, no orbital fractures. No mandibular fracture or dislocation. Bilateral temporomandibular joints are age appropriate. Paranasal sinuses: Paranasal sinuses are clear. Soft tissues: Punctate calcification favored over punctate foreign body in the left upper eyelid, axial image 13 series 3. Soft tissue swelling of the frontal scalp, bridge of the nose and right greater than left preorbital/preseptal soft tissues. Facial soft tissues are otherwise unremarkable. Dental: Considerable artifact from dental fillings obscuring adjacent structures. IMPRESSION: 1. Acute fracture base of the left nasal bone. 2. No orbital globe injury. 3. No additional facial bone fractures. Specifically, no orbital fracture. 4. Soft tissue swelling of the frontal scalp, bridge of nose and right greater than left preorbital/preseptal regions.
--- NOTE | 2022-12-06 19:27 | CT_ITS ---
PROCEDURE INFORMATION: Exam: CT Temporal Bones Without Contrast. Exam date and time: 12/06/2022 7:48 PM Age: 67 years old Clinical indication: Injury or trauma; Fall; Other: Pain; Additional info: Fall, bilateral periorbital ecchymoses TECHNIQUE: Imaging protocol: Computed tomography of the temporal bones without contrast. Total images: 1539 Radiation optimization: All CT scans at this facility use at least one of these dose optimization techniques: automated exposure control; mA and/or kV adjustment per patient size (includes targeted exams where dose is matched to clinical indication); or iterative reconstruction. REPORTING DATA: Count of CT and Cardiac NM exams in prior 12 months: This patient has received 0 known CTs and 0 known cardiac nuclear medicine studies in the 12 months prior to the current study. COMPARISON: CT FACIAL BONES WO CON 12/06/2022 7:45 PM FINDINGS: Right inner ear: Normal. Right ossicles and middle ear: Normal. The middle ear ossicles are intact. Right external auditory canal: Filling defect in keeping with cerumen. Right facial nerve canal: Normal. Right jugular foramen: No jugular dehiscence. Right carotid canal: No aberrant carotid canal. Right mastoid air cells: Normal. No mastoid effusions. Left inner ear: Normal. Left ossicles and middle ear: Normal. The middle ear ossicles are intact. Left external auditory canal: Filling defect in keeping with cerumen. Left facial nerve canal: Normal. Left jugular foramen: No jugular dehiscence. Left carotid canal: No aberrant carotid canal. Left mastoid air cells: Normal. No mastoid effusions. Soft tissues: Unremarkable. IMPRESSION: 1. Unremarkable bilateral temporal bone CT. 2. Filling defects bilateral external auditory canals in keeping with cerumen.
--- NOTE | 2022-12-06 19:27 | CT_ITS ---
PROCEDURE INFORMATION: Exam: CT Cervical Spine Without Contrast Exam date and time: 12/06/2022 7:42 PM Age: 67 years old Clinical indication: Injury or trauma; Fall; Blunt trauma; Additional info: Fall, bilateral periorbital ecchymoses TECHNIQUE: Imaging protocol: Computed tomography of the cervical spine without contrast. Total images: 266 Radiation optimization: All CT scans at this facility use at least one of these dose optimization techniques: automated exposure control; mA and/or kV adjustment per patient size (includes targeted exams where dose is matched to clinical indication); or iterative reconstruction. REPORTING DATA: Count of CT and Cardiac NM exams in prior 12 months: This patient has received 0 known CTs and 0 known cardiac nuclear medicine studies in the 12 months prior to the current study. COMPARISON: CT HEAD/BRAIN WO CON 12/06/2022 7:40 PM FINDINGS: Bones/joints: Cervical body height is maintained. Attenuation artifact compromising detail at lower levels. Minor anterolisthesis C4-C5 is most likely degenerative. The base of the dens and the C1 and C2 articulations are maintained with moderate degenerative changes. The cervicooccipital junction is intact. The facet joints are appropriately aligned with at least moderate multilevel hypertrophic degenerate facet joint spondylosis. The posterior elements are intact. There is degenerative fusion across the disc spaces at C5-C6 and C6-C7. Moderate degenerative disc disease is present at the remainder cervical levels. Large partial bridging anterior endplate osteophyte formation spanning the entire cervical spine. Posterior projecting disc osteophyte complex with ossification of posterior longitudinal ligament at C3-C4. Limited assessment spinal canal contents secondary to attenuation artifact. Multilevel bilateral neural foraminal encroachments. Prevertebral and retropharyngeal spaces: No prevertebral soft tissue swelling. Lungs: Lung apices are clear. Vasculature: Moderate calcifications bilateral carotid artery bifurcations. Soft tissues: Unremarkable soft tissues of the neck. IMPRESSION: 1. No acute cervical fracture or traumatic subluxation. 2. Moderate to severe degenerative disc disease and facet joint spondylosis. 3. Degenerative fusion of the C5 through C7 vertebral bodies. 4. Moderate calcifications bilateral carotid artery bifurcations.
[2022-12-06 19:31] VITALS: BP 136/74; PULSE 97; RESP 20; O2SAT 94
--- NOTE | 2022-12-06 19:34 | PC.NURSE ---
small abrasion noted to left fore arm,bruising noted to right forearm, bilat knees, bruising noted around both eyes, tenderness to right shoulder, right side of neck, full ROM of all extremities, sensation intact pulses within normal limits
--- NOTE | 2022-12-06 19:49 | [facility].EDGENADL ---
Discharge Plan Disposition Patient Disposition: Home, Self-Care Chief Complaint: Fall Prescriptions Prescriptions: No Action testosterone cypionate 200 mg/mL kit 200 mg IM Q2W pantoprazole 20 mg tablet,delayed release (DR/EC) 20 mg PO DAILY furosemide 20 mg tablet 20 mg PO DAILY duloxetine 30 mg capsule,delayed release(DR/EC) 30 mg PO DAILY Farxiga 10 mg tablet 10 mg PO DAILY metformin 1,000 mg tablet See Rx Instructions .ROUTE .COMPLEX Qty: 180 0RF Dose Instruction: TAKE 1 TABLET BY MOUTH TWICE DAILY FOR DIABETES Rx Instructions: TAKE 1 TABLET BY MOUTH TWICE DAILY FOR DIABETES Ozempic 0.25 mg or 0.5 mg(2 mg/1.5 mL) pen injector 0.25 mg SQ WEEKLY Rx Instructions: for 4 doses Referrals Follow up/Referrals: Geoffrey West MD [Primary Care Provider] - See instructions Activity Restrictions/Add. Instructions Additional Instructions/Restrictions: Call your family doctor to establish care for this visit to the emergency department and schedule follow-up within 48 hours to ensure improvement. If you have any worsening of your condition or any other concerning signs or symptoms, return to the emergency department or your primary care doctor for further evaluation. Clinical Impressions Clinical Impression: Closed fracture nasal bone Discharge ED Provider: Sanju oGnzalez General Adult HPI General Chief complaint: Fall Stated complaint: AO fall 0500 face neck injury Time Seen by Provider: 12/06/22 19:03 Mode of Arrival: Ambulatory Source of Information: Patient Limitations: No Limitations Description of Symptoms (Recalled from ER Triage Doc. by RN): pt reports about 530am this morning dog pulled him off porch and fell down approx 4 feet, pt states he is unsure if he had loc. Complains of neck, right shoulder, facial pain and right forearm pain History of Present Illness HPI narrative: This is a 67-year-old male with history of hypertension, hyperlipidemia, diabetes presenting with fall. Patient states that around 5 AM today, 12/06, he was walking his dog, dog pulled, pulled him off of the porch and he fell about 4 feet onto the right side of his face. Positive loss of consciousness. Patient states that he was woozy when he stood up, walked into the door frame with the left side of his face and bruised the left side of his face. Has been having significant pain in the right side of his face as well as neck since that time. Has not taken anything for it. No neurologic deficits. Pain mild in intensity at rest, severe in intensity and shooting to both shoulders when turning his head. Related Data Home Medications Medication Instructions Recorded Confirmed pantoprazole 20 mg tablet,delayed 20 mg PO DAILY STOMACH 10/02/20 02/07/22 release semaglutide 0.25 mg or 0.5 mg (2 0.25 mg SQ WEEKLY Diabetes 12/12/21 02/07/22 mg/1.5 mL) subcutaneous pen injector (Ozempic) dapagliflozin propanediol 10 mg 10 mg PO DAILY Diabetes 12/28/21 02/07/22 tablet (Farxiga) duloxetine 30 mg capsule,delayed 30 mg PO DAILY mood 12/28/21 02/07/22 release furosemide 20 mg tablet 20 mg PO DAILY Fluid 12/28/21 02/07/22 testosterone cypionate 200 mg/mL 200 mg IM Q2W Supplement 01/01/22 02/07/22 intramuscular kit Previous Rx's Medication Instructions Recorded metformin 1,000 mg tablet See Rx Instructions .Route 05/02/22 .COMPLEX #180 tabs Allergies Allergy/AdvReac Type Severity Reaction Status Date / Time No Known Allergies Allergy Verified 02/06/22 09:25 [facility] Disclaimer: The information contained in this section may have been updated after the patient was seen, as this information can be updated by other users. Medical History Diabetes HTN (hypertension) Family History Other No significant family history Social History (Reviewed 1
[2022-12-06 20:00] VITALS: BP 123/70; PULSE 98; RESP 20; O2SAT 96
[2022-12-06 21:22] VITALS: BP 136/67; PULSE 90; RESP 20; TEMP 37; O2SAT 96
== END 2022-12-06 21:23 | disposition home or self-care (01) ==
PROVIDERS: Emergency Provider Emergency Medicine; PCP Internal Medicine Adolescent Medicine
DX: S02.2XXA Fracture of nasal bones, initial encounter for closed fracture (principal); M54.2 Cervicalgia; M25.511 Pain in right shoulder; M79.631 Pain in right forearm; W17.89XA Other fall from one level to another, initial encounter; I10 Essential (primary) hypertension; E78.5 Hyperlipidemia, unspecified; E11.9 Type 2 diabetes mellitus without complications
CPT/HCPCS: 70450; 70480; 70486; 72125; 99285

== ENCOUNTER → 2023-01-02 10:38 | Outpatient (CLI) | payer MEDICARE, MEDICAID, SELFPAY ==
[2023-01-02 10:48] LABS: Microscopic, Urine URINE MICROSCOPIC (MICROSCOPIC)
[2023-01-02 11:09] LABS: Appearance,Urine CLEAR (Clear); Bilirubin,Urine Negative (Negative); Blood, Urine Negative (Negative); Color,Urine YELLOW (Yellow); Glucose,Urine (UA) 3+ (Negative); Ketones,Urine Negative (Negative); Leukocyte Esterase,Urine Negative (Negative); Nitrate,Urine Negative (Negative); PH,Urine 6.5 (5.0-8.5); Protein,Urine Negative (Negative)
[2023-01-02 11:13] LABS: Bacteria,Urine Trace /lpf
[2023-01-02 11:17] LABS: Hemoglobin 16.4 g/dL (14.1-18.0); Mean Corpuscular HGB Conc 32.2 g/dL (31.8-35.4); Mean Corpuscular Hemoglobin 29.2 pg (27.0-31.2); Mean Corpuscular Volume 90.9 fl (80-94); Platelet Count 91 K/mm3 (142-424); Red Blood Count 5.61 M/mm3 (4.60-6.20); White Blood Count 4.5 K/mm3 (4.8-10.8)
[2023-01-02 11:19] LABS: Creatinine,Urine Random 19 mg/dL (Not Estab.)
[2023-01-12 10:27] LABS: Renin Activity, Plasma 5.722
== END ==
PROVIDERS: PCP Internal Medicine Adolescent Medicine; Visit Provider Internal Medicine Nephrology
DX: N18.2 Chronic kidney disease, stage 2 (mild) (principal)
CPT/HCPCS: 81001; 82570; 84155; 84244; 85014; 85018; 85048; 85049

== ENCOUNTER → 2023-02-06 15:47 | Outpatient (POV) | payer MEDICARE, MEDICAID, SELFPAY | PROVIDERS: Visit Provider Internal Medicine Nephrology | DX: Z00.00 Encounter for general adult medical examination without abnormal findings (principal) ==

== ENCOUNTER 2023-06-25 22:45 | Emergency (ER) | payer MEDICARE, MEDICAID, SELFPAY ==
[2023-06-25 22:45] VITALS: BP 178/100; PULSE 96; RESP 15; TEMP 36.4; O2SAT 97; BMI 29.8
--- NOTE | 2023-06-25 23:22 | PC.NURSE ---
pt refused offer of ct scans
[2023-06-25 23:25] VITALS: BP 150/83; PULSE 99; RESP 17; TEMP 37.1; O2SAT 98
--- NOTE | 2023-06-26 01:35 | ED_ITS ---
Discharge Plan Disposition Patient Disposition: Home, Self-Care Condition: Good Prescriptions Prescriptions: No Action testosterone cypionate 200 mg/mL kit 200 mg IM Q2W pantoprazole 20 mg tablet,delayed release (DR/EC) 20 mg PO DAILY furosemide 20 mg tablet 20 mg PO DAILY duloxetine 30 mg capsule,delayed release(DR/EC) 30 mg PO DAILY Farxiga 10 mg tablet 10 mg PO DAILY metformin 1,000 mg tablet See Rx Instructions .ROUTE .COMPLEX Qty: 180 0RF Dose Instruction: TAKE 1 TABLET BY MOUTH TWICE DAILY FOR DIABETES Rx Instructions: TAKE 1 TABLET BY MOUTH TWICE DAILY FOR DIABETES methocarbamol 500 mg tablet 1,000 mg PO Q8H Qty: 18 0RF lidocaine 5 % adhesive patch,medicated 1 patch topical DAILY Qty: 15 0RF Rx Instructions: leave on most painful area for up to 12 hrs Ozempic 0.25 mg or 0.5 mg(2 mg/1.5 mL) pen injector 0.25 mg SQ WEEKLY Rx Instructions: for 4 doses Activity Restrictions/Add. Instructions Additional Instructions/Restrictions: Please follow-up with your primary care provider. Please return to the emergency department if you develop any new or worsening symptoms or become concerned for your health. Clinical Impressions Clinical Impression: Headache, Acute neck pain Discharge ED Provider: Toyb Bajwa Adult HPI General Chief complaint: Headache Stated complaint: headache,neck pain Time Seen by Provider: 06/25/23 23:00 Mode of Arrival: Ambulatory Source of Information: Patient and Significant Other Limitations: No Limitations Description of Symptoms (Recalled from ER Triage Doc. by RN): complained of lump on back of neck, eyeball pain,roof of mouth pain, headache x 24 hours, interrupting his sleep History of Present Illness HPI narrative: 67-year-old male with history as reported below presents with pain in his neck. He reports that he had sudden onset of a sharp pain in his right neck a day or 2 ago. Pain is worse with movement. It is worse with palpation. He reports no recent illness or trauma. Reports no history of spinal issues. He also reports some abnormal sensation in his face as well as a headache. He reports that he does not normally get headaches, is currently at 3 or 4 out of 10. He is unable to fully describe the sensation to his face, reports they are primarily right- sided, reports that it feels warm. He denies any other neurologic symptoms. Related Data Home Medications Medication Instructions Recorded Confirmed pantoprazole 20 mg tablet,delayed 20 mg PO DAILY STOMACH 10/02/20 02/07/22 release semaglutide 0.25 mg or 0.5 mg (2 0.25 mg SQ WEEKLY Diabetes 12/12/21 02/07/22 mg/1.5 mL) subcutaneous pen injector (Ozempic) dapagliflozin propanediol 10 mg 10 mg PO DAILY Diabetes 12/28/21 02/07/22 tablet (Farxiga) duloxetine 30 mg capsule,delayed 30 mg PO DAILY mood 12/28/21 02/07/22 release furosemide 20 mg tablet 20 mg PO DAILY Fluid 12/28/21 02/07/22 testosterone cypionate 200 mg/mL 200 mg IM Q2W Supplement 01/01/22 02/07/22 intramuscular kit Previous Rx's Medication Instructions Recorded metformin 1,000 mg tablet See Rx Instructions .Route 05/02/22 .COMPLEX #180 tabs lidocaine 5 % topical patch 1 patch topical DAILY #15 ea 12/07/22 methocarbamol 500 mg tablet 1,000 mg (2 x 500 mg) PO Q8H #18 12/07/22 tabs Allergies Allergy/AdvReac Type Severity Reaction Status Date / Time No Known Allergies Allergy Verified 02/06/22 09:25 [facility] Disclaimer: The information contained in this section may have been updated after the willie perez was seen, as this information can be updated by other users. Medical History Diabetes HTN (hypertension) Family History Other No significant family history Social History Smoking Status: Current every day smoker tobacco type: cigarettes packs per day: 1 second hand exposure: No alcohol intake: never counseling provided: none substance use type: denies use current occupational status: retired Travel in the last 8 weeks: None household members: none housing: house current occupational exposures/hazards: No caffeine: Yes ROS Obtained: Yes All systems reviewed & no additional complaints except as documented Physical Exam General General appearance: alert and in no apparent distress Head Head exam: atraumatic and normocephalic Eye Eye exam: Present normal appearance, PERRL and EOMI ENT ENT exam: Present normal oropharynx and normal external ear exam Neck Neck exam: Present normal inspection, full ROM and other (Patient has point tenderness over the right paraspinal trapezius. Patient has pain in this area with range of motion of the neck. No radiating neurologic symptoms in the arms.) Chest Chest inspection: Present normal inspection and symmetric chest wall rise; Absent tenderness Respiratory Respiratory exam: Present normal lung sounds bilaterally; Absent respiratory distress Cardiovascular Cardiovascular exam: Present regular rate and normal rhythm Abdominal Exam Abdominal exam: Present soft; Absent distention, tenderness or guarding Extremities Exam Extremities exam: Present normal inspection; Absent edema or joint swelling Back Exam Back exam: Present normal inspection; Absent tenderness Neurological Exam Neurological exam: Present alert, oriented X3 and CN II-XII intact; Absent motor sensory deficit Psychiatric Psychiatric exam: Present normal affect and normal mood Skin Skin exam: Present warm, dry and normal color Lymphatic Lymphatic Findings: no adenopathy Medical Decision Making Medical Records Medical records reviewed: Yes I reviewed the patient's medical records. Garo Inquiry Pt receiving controlled substance: No Garo was queried for this patient: No Vital Signs: 06/25/23 22:45 06/25/23 23:25 Temperature 97.5 F L 98.7 F Temperature Source Oral Oral Pulse Rate 99 H Pulse Rate [Right Brachial] 96 H Respiratory Rate 15 17 Blood Pressure 150/83 H Blood Pressure [Right Arm] 178/100 H Blood Pressure Mean [Right Arm] 126 Blood Pressure Source Automatic Cuff Blood Pressure Source [Right Arm] Automatic Cuff Blood Pressure Position Sitting Blood Pressure Position [Right Arm] Sitting 02 Sat by Pulse Oximetry 97 Oxygen Delivery Method Room Air Room Air Lab Data Lab results reviewed: Yes I reviewed the patient's lab results. Medical Decision Narrative: 67-year-old male with history as reported above presents with multiple complaints including focal right paraspinal neck pain and tenderness, mild headache, warm sensation in the face. History was obtained interactive discussion with patient. On arrival, patient is [afebrile, hemodynamically stable, satting appropriately, alert, oriented x4, GCS 15], moving all extremities spontaneously. Full physical exam performed and significant for normal neurologic exam, normal cranial nerve exam, focal muscular tenderness of the right trapezius muscle. Differential includes but is not limited to muscle spasm, cervical radiculopathy, cervical fracture, trigeminal neuralgia, stroke,. Patient declined any medication intervention because he does not like to take medicine. Given his objectively normal neurologic exam, I am not concerned that patient has had a stroke. Given his age, vague subjective abnormal sensation of the face and the fact that he has a new, albeit mild, headache, I offered the patient a CT scan to evaluate. Patient instead declined and said he would wait to see if symptoms got better on its own. I have not sure what the ultimate underlying pathology is. Most likely muscular spasm of the trapezius. I gave the patient extensive return precautions. Patient was discharged in stable condition. Procedures Risk/Benefits of Procedure(s) Were Explained: Yes Critical Care Critical Care Time Critical Care Time: No
== END 2023-06-25 23:25 | disposition home or self-care (01) ==
LOC: ER 06-26 01:38
PROVIDERS: Emergency Provider Emergency Medicine; PCP Internal Medicine Adolescent Medicine
DX: R51.9 Headache, unspecified (principal); M54.2 Cervicalgia; R22.1 Localized swelling, mass and lump, neck; G50.1 Atypical facial pain; H57.10 Ocular pain, unspecified eye; E11.9 Type 2 diabetes mellitus without complications; I10 Essential (primary) hypertension; F17.210 Nicotine dependence, cigarettes, uncomplicated
CPT/HCPCS: 99283

== ENCOUNTER 2023-08-12 09:01 | Outpatient (CLI) | payer MEDICARE, MEDICAID, SELFPAY ==
[2023-08-12 09:10] LABS: Microscopic, Urine URINE MICROSCOPIC (MICROSCOPIC)
[2023-08-12 09:43] LABS: Hematocrit 52.6 % (42.0-52.0); Hemoglobin 16.9 g/dL (14.1-18.0); Mean Corpuscular HGB Conc 32.1 g/dL (31.8-35.4); Mean Corpuscular Hemoglobin 29.1 pg (27.0-31.2); Mean Corpuscular Volume 90.4 fl (80-94); Platelet Count 109 K/mm3 (142-424); Red Blood Count 5.82 M/mm3 (4.60-6.20); Red Cell Distribution Width 15.9 % (11.5-17.5); White Blood Count 6.2 K/mm3 (4.8-10.8)
[2023-08-12 09:59] LABS: Appearance,Urine CLEAR (Clear); Bilirubin,Urine Negative (Negative); Blood, Urine Negative (Negative); Color,Urine YELLOW (Yellow); Glucose,Urine (UA) 3+ (Negative); Ketones,Urine Negative (Negative); Leukocyte Esterase,Urine Negative (Negative); Nitrate,Urine Negative (Negative); PH,Urine 6.5 (5.0-8.5); Protein,Urine Negative (Negative)
[2023-08-12 10:12] LABS: Creatinine,Urine Random 50 mg/dL (Not Estab.)
[2023-08-12 10:15] LABS: Microalbumin/Creatinine Ratio 37.8
[2023-08-12 10:33] LABS: Alanine Aminotransferase 28 U/L (12-78); Albumin Level 4.7 g/dl (3.5-5.0); Albumin/Globulin Ratio 1.6 (1.1-1.8); Alkaline Phosphatase 98 U/L (38-126); Anion Gap 16.7 mEq/L (5-15); Aspartate Amino Transferase 31 U/L (17-59); Blood Urea Nitrogen 24 mg/dl (9-20); Calcium 10.5 mg/dl (8.4-10.2); Carbon Dioxide 27 mmol/L (22.0-30.0); Chloride 101 mmol/L (98-107); Chol/HDL Ratio 3.6 (1-3.5); Cholesterol 221 mg/dl (140-200); Estimated Glomerular Filt Rate 60 ml/min (>60); GFR (African American) 73 ML/MIN (>60); Globulin 2.9 g/dL (1.3-3.2); Glucose 195 mg/dl (74-100); HDL Cholesterol 62 mg/dl (40-60); Potassium 4.7 mmoL/L (3.5-5.1); Sodium 140 mmol/L (136-145); Total Protein,Serum 7.6 g/dl (6.3-8.2); Triglycerides 140 mg/dl (30-150); VLDL Cholesterol 28 mg/dL (0-40)
[2023-08-12 10:34] LABS: Albumin Level 4.5 g/dl (3.5-5.0); Anion Gap 13.7 mEq/L (5-15); Blood Urea Nitrogen 23 mg/dl (9-20); Calcium 10.5 mg/dl (8.4-10.2); Carbon Dioxide 29 mmol/L (22.0-30.0); Chloride 101 mmol/L (98-107); Estimated Glomerular Filt Rate 60 ml/min (>60); GFR (African American) 73 ML/MIN (>60); Glucose 194 mg/dl (74-100); Phosphorous 3.4 mg/dl (2.5-4.5); Potassium 4.7 mmoL/L (3.5-5.1); Sodium 139 mmol/L (136-145)
[2023-08-12 10:44] LABS: Direct LDL Cholesterol 126.75 mg/dL (100-129)
[2023-08-12 10:47] LABS: Bacteria,Urine Trace /lpf; Squamous Epithelial Cell,Urine Occasional #/hpf (0-5)
[2023-08-12 11:16] LABS: Hemoglobin A1C 9.5 % (4.0-6.0)
== END 2023-08-12 23:59 | disposition home or self-care (01) ==
PROVIDERS: PCP Nurse Practitioner Family; Visit Provider Internal Medicine Nephrology
DX: E11.22 Type 2 diabetes mellitus with diabetic chronic kidney disease (principal); N18.2 Chronic kidney disease, stage 2 (mild); Z79.84 Long term (current) use of oral hypoglycemic drugs; Z79.85 Long-term (current) use of injectable non-insulin antidiabetic drugs
CPT/HCPCS: 36415; 80053; 80061; 80069; 81001; 82043; 82570; 83036; 84156; 85014; 85018; 85048; 85049

== ENCOUNTER 2023-12-11 08:36 | Outpatient (CLI) | payer MEDICARE, MEDICAID, SELFPAY ==
[2023-12-11 09:44] LABS: Alanine Aminotransferase 31 U/L (12-78); Albumin Level 4.2 g/dl (3.5-5.0); Albumin/Globulin Ratio 1.3 (1.1-1.8); Alkaline Phosphatase 94 U/L (38-126); Aspartate Amino Transferase 36 U/L (17-59); Bilirubin,Total 0.6 mg/dl (0.2-1.3); Blood Urea Nitrogen 21 mg/dl (9-20); Calcium 10.1 mg/dl (8.4-10.2); Carbon Dioxide 27 mmol/L (22.0-30.0); Chloride 104 mmol/L (98-107); Estimated Glomerular Filt Rate 55 ml/min (>60); GFR (African American) 66 ML/MIN (>60); Globulin 3.2 g/dL (1.3-3.2); Glucose 135 mg/dl (74-100); Sodium 138 mmol/L (136-145); Total Protein,Serum 7.4 g/dl (6.3-8.2)
== END 2023-12-11 23:59 | disposition home or self-care (01) ==
LOC: LAB 08:37
PROVIDERS: PCP Nurse Practitioner Family; Visit Provider Nurse Practitioner Family
DX: E11.22 Type 2 diabetes mellitus with diabetic chronic kidney disease (principal)
CPT/HCPCS: 36415; 80053; 83036

== ENCOUNTER 2024-01-26 12:22 | Emergency (ER) | payer MEDICARE, MEDICAID, SELFPAY ==
[2024-01-26 12:47] VITALS: BP 152/74; PULSE 78; RESP 16; TEMP 37; O2SAT 98; BMI 27.8
[2024-01-26] MEDS: SULFA/TRIMETHOPRIM 1 TABLET 1 EACH PO (13:16)
[2024-01-26 13:30] VITALS: BP 150/70; PULSE 74; RESP 18; TEMP 36.8; O2SAT 98
--- NOTE | 2024-01-26 13:32 | HMH.EDGENADL ---
Discharge Plan Disposition Patient Disposition: Home, Self-Care Prescriptions Prescriptions: New sulfamethoxazole-trimethoprim [Bactrim DS] 800-160 mg tablet 1 tab PO BID 10 Days Qty: 20 0RF No Action testosterone cypionate 200 mg/mL kit 200 mg IM Q2W pantoprazole 20 mg tablet,delayed release (DR/EC) 20 mg PO DAILY furosemide 20 mg tablet 20 mg PO DAILY duloxetine 30 mg capsule,delayed release(DR/EC) 30 mg PO DAILY Farxiga 10 mg tablet 10 mg PO DAILY metformin 1,000 mg tablet See Rx Instructions .ROUTE .COMPLEX Qty: 180 0RF Dose Instruction: TAKE 1 TABLET BY MOUTH TWICE DAILY FOR DIABETES Rx Instructions: TAKE 1 TABLET BY MOUTH TWICE DAILY FOR DIABETES methocarbamol 500 mg tablet 1,000 mg PO Q8H Qty: 18 0RF lidocaine 5 % adhesive patch,medicated 1 patch topical DAILY Qty: 15 0RF Rx Instructions: leave on most painful area for up to 12 hrs Ozempic 0.25 mg or 0.5 mg(2 mg/1.5 mL) pen injector 0.25 mg SQ WEEKLY Rx Instructions: for 4 doses Referrals Follow up/Referrals: Eliane Lopez APRN [Primary Care Provider] - See instructions Activity Restrictions/Add. Instructions Additional Instructions/Restrictions: Please floss the vessel loop once a day over the next week and as long as there is no more bleeding or pus coming from the wound you may cut the vessel loop out please return with any significant worsening spreading redness fevers chills or other concerns. Clinical Impressions Clinical Impression: Abscess of hand, Cellulitis of hand Instructions Patient Instructions: DI for Skin Abscess Print Language Print Language: Turkmen Discharge ED Provider: Bibi Dobbs General Adult HPI General Chief complaint: Skin/Abscess/Foreign Body Stated complaint: infection on R hand Time Seen by Provider: 01/26/24 13:09 Mode of Arrival: Ambulatory Source of Information: Patient Limitations: No Limitations Description of Symptoms (Recalled from ER Triage Doc. by RN): pt states he had a red, painful, swollen area pop up 3d ago on his R hand. pt states last night he stuck a needle in the area. pt reports there was bloody drainage but no apparent purulent drainage. The back of the pts hand is edematous, red, hot, and painful. pt states the pain is 4/10 and burning/stabbing in nature. pt is unsure what caused the infection. History of Present Illness HPI narrative: Patient is a 68-year-old male who presented today with erythema tenderness and warmth of the dorsal aspect of the right hand. He does admit to me that he been doing injecting drugs. 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 No fevers or chills. Related Data Home Medications ?Medication ?Instructions ?Recorded ?Confirmed pantoprazole 20 mg tablet,delayed 20 mg PO DAILY STOMACH 10/02/20 02/07/22 release semaglutide 0.25 mg or 0.5 mg (2 0.25 mg SQ WEEKLY Diabetes 12/12/21 02/07/22 mg/1.5 mL) subcutaneous pen injector ([employer] dapagliflozin propanediol 10 mg 10 mg PO DAILY Diabetes 12/28/21 02/07/22 tablet (Farxiga) duloxetine 30 mg capsule,delayed 30 mg PO DAILY mood 12/28/21 02/07/22 release furosemide 20 mg tablet 20 mg PO DAILY Fluid 12/28/21 02/07/22 testosterone cypionate 200 mg/mL 200 mg IM Q2W Supplement 01/01/22 02/07/22 intramuscular kit Previous Rx's ?Medication ?Instructions ?Recorded metformin 1,000 mg tablet See Rx Instructions .Route 05/02/22 .COMPLEX #180 tabs lidocaine 5 % topical patch 1 patch topical DAILY #15 ea 12/07/22 methocarbamol 500 mg tablet 1,000 mg (2 x 500 mg) PO Q8H #18 12/07/22 tabs sulfamethoxazole 800 1 tab PO BID 10 days #20 tabs 01/26/24 mg-trimethoprim 160 mg tablet (Bactrim DS) Allergies Allergy/AdvReac Type Severity Reaction Status Date / Time No Known Allergies Allergy Verified 02/06/22 09:25 [facility] Disclaimer: The information contained in this section may have been updated after the patient was seen, as this information can be updated by other users. Medical History Diabetes HTN (hypertension) Family History Other No significant family history Social History Smoking Status: Current every day smoker tobacco type: cigarettes packs per day: 1 second hand exposure: No alcohol intake: never counseling provided: none substance use type: denies use current occupational status: retired Travel in the last 8 weeks: None household members: none housing: house current occupational exposures/hazards: No caffeine: Yes Other Medical History Have you received the Flu Vaccine for this season: Yes Have you received the Pneumonia Vaccine: Yes ROS Obtained: Yes All systems reviewed & no additional complaints except as documented Physical Exam General General appearance: alert Respiratory Respiratory exam: Present normal lung sounds bilaterally Cardiovascular Cardiovascular exam: Present regular rate Extremities Exam Extremities exam: Present other (On the dorsal aspect of the right hand there is a 2 x 2 cm of erythema induration tenderness and the erythema surrounding this and tenderness goes from the MCP joints to the mid forearm on the dorsal aspect with significant tenderness) Neurological Exam Neurological exam: Present alert and oriented X3 Medical Decision Making Medical Records Screening: Per USPSTF and CDC recommendations, given the prevalence of disease in our region, it is our hospital?s policy to screen for HIV and viral Hepatitis for all patients aged 18 and over and those with ongoing risk factors. Garo Inquiry Pt receiving controlled substance: No Vital Signs: 01/26/24 12:47 Temperature 98.6 F Temperature Source Oral Pulse Rate [Left] 78 Respiratory Rate 16 Blood Pressure [Right Arm] 152/74 H Blood Pressure Mean [Right Arm] 100 Blood Pressure Source [Right Arm] Automatic Cuff Blood Pressure Position [Right Arm] Sitting 02 Sat by Pulse Oximetry 98 Oxygen Delivery Method Room Air Orders (Tests/Meds): ED MEDICATIONS Discontinued Medications Generic Name Dose Route Start Last Admin Trade Name Freq PRN Reason Stop Dose Admin Trimethoprim/Sulfamethoxazole 1 each 01/26/24 13:11 01/26/24 13:16 Sulfa/Trimethoprim 1 Tablet PO 01/26/24 13:12 1 each ONCE ONE Administration ORDERS Category Date Time Status POCUS Point of Care (ER Only) Stat Exams 01/26/24 13:11 Ordered Medical Decision Narrative: 68-year-old above history and physical with a shooters abscess and cellulitis on the dorsal aspect of the right hand. He is not systemically ill. He does have cellulitis from the mid forearm to the hand surrounding this abscess the abscess was successfully drained and cultures were sent as I anticipate he could get worse and not improved with oral antibiotics on top of this. First dose of Bactrim given in the emergency department I strongly emphasized that he complete his antibiotics even if he is feeling completely better within a few days. He has been advised on how to floss his vessel loop he was discharged in stable improved condition with return precautions emphasized. Procedures Abscess I/D Site: hand (Complex I&D) Side (if applicable): right Local Anesthetic: lidocaine 1% and with epi Amount of anesthesia used (mL): 5 Technique: incised with #11 blade Amount of fluid expressed (mL): 5 Packing used?: none (Vessel loop placed in wound deloculated) Complications: bleeding (Compression dressing adequately stopped bleeding with pressure) Miscellaneous Procedure Procedure Performed: Limited soft tissue ultrasound Indication: Soft tissue swelling and redness Identified structures: Location: Dorsal aspect of the right hand Findings: Cobblestoning and soft tissue fluid collection tracking from the mid forearm down to the MCP joints with a centralized area of localized fluid collection dorsal aspect of the hand with a 1 x 2 cm area of loculated and hyperdense fluid Impression: Hand cellulitis with centralized localized interval fluid collection consistent with an abscess Images were sent to permanent archive The study was technically adequate Soft Tissue CPT Codes: CPT Neck: 58765-49 CPT Upper extremity: 08322-17 CPT Axilla: 12713-90 CPT Chest wall: 66283-52 CPT Breast: 33184-51-PC/LT (complete), 90144-87-VQ/LT (limited), CPT Upper Back: 76328-60 CPT Lower Back: 64675-75 CPT Abdominal Wall: 92257-69 CPT Pelvic Wall: 99336-31 CPT Lower Extremity: 77892-71 CPT Other Soft Tissue: 23923-33 This study was performed by me, and I personally interpreted all images/videos. Based on my clinical judgement, these images were added and did not necessitate further imaging. Critical Care Critical Care Time Critical Care Time: No
== END 2024-01-26 13:30 | disposition home or self-care (01) ==
PROVIDERS: Emergency Provider Student in an Organized Health Care Education/Training Program; PCP Nurse Practitioner Family
DX: L02.511 Cutaneous abscess of right hand (principal); L03.113 Cellulitis of right upper limb; M79.641 Pain in right hand
CPT/HCPCS: 87070; 87205; 99284

== ENCOUNTER 2024-02-13 07:10 | Emergency (ER) | payer MEDICARE, MEDICAID, SELFPAY ==
[2024-02-13 07:10] VITALS: BP 173/104; PULSE 118; RESP 20; TEMP 37.3; O2SAT 97; BMI 29.2
[2024-02-13] MEDS: SULFA/TRIMETHOPRIM 1 TABLET 1 EACH PO (07:28)
[2024-02-13] MEDS: LIDOCAINE 1% W/EPI 1:100,000 20ML VIAL 20 ML IJ (07:28)
[2024-02-13 07:30] VITALS: BP 161/86; PULSE 128; RESP 18; O2SAT 97
--- NOTE | 2024-02-13 07:41 | ED_ITS ---
Discharge Plan Disposition Patient Disposition: Home, Self-Care Condition: Good Prescriptions Prescriptions: New sulfamethoxazole-trimethoprim [Bactrim DS] 800-160 mg tablet 1 tab PO BID 10 Days Qty: 20 0RF No Action testosterone cypionate 200 mg/mL kit 200 mg IM Q2W pantoprazole 20 mg tablet,delayed release (DR/EC) 20 mg PO DAILY furosemide 20 mg tablet 20 mg PO DAILY duloxetine 30 mg capsule,delayed release(DR/EC) 30 mg PO DAILY Farxiga 10 mg tablet 10 mg PO DAILY metformin 1,000 mg tablet See Rx Instructions .ROUTE .COMPLEX Qty: 180 0RF Dose Instruction: TAKE 1 TABLET BY MOUTH TWICE DAILY FOR DIABETES Rx Instructions: TAKE 1 TABLET BY MOUTH TWICE DAILY FOR DIABETES methocarbamol 500 mg tablet 1,000 mg PO Q8H Qty: 18 0RF lidocaine 5 % adhesive patch,medicated 1 patch topical DAILY Qty: 15 0RF Rx Instructions: leave on most painful area for up to 12 hrs sulfamethoxazole-trimethoprim [Bactrim DS] 800-160 mg tablet 1 tab PO BID 10 Days Qty: 20 0RF Ozempic 0.25 mg or 0.5 mg(2 mg/1.5 mL) pen injector 0.25 mg SQ WEEKLY Rx Instructions: for 4 doses Referrals Follow up/Referrals: Eliane Lopez APRN [Primary Care Provider] - See instructions Activity Restrictions/Add. Instructions Additional Instructions/Restrictions: You were evaluated in the emergency department today. We are prescribing an antibiotic for the infection of your left forearm. Please complete the full course as prescribed. Take Tylenol and ibuprofen at home as needed for the pain. Keep the wound clean and dry. Do not submerge under any water. Return to the emergency department right away for new or worsening symptoms. Follow-up closely with your primary care provider. We have a logging specialist here who can help people with substance use and opioid dependence, so we are planning to have her contact you with resources. [facility] is one option. It is not safe to continue using drugs, but if you do continue, please make sure you use clean needles and prep your skin with a cleansing agent such as alcohol or betadine. Clinical Impressions Clinical Impression: Abscess of forearm, left, Cellulitis of forearm, left, Intravenous nondependent opioid abuse Instructions Patient Instructions: Opioid Use Disorder (Alternative Therapy), Substance Use Disorder, DI for Opioid Use Disorder, Getting Treatment for Substance Use Disorder, DI for Substance Use Disorder, DI for Skin Abscess, DI for Incision and Drainage Print Language Print Language: Georgian Discharge ED Provider: Anna Marie Colvin General Adult HPI General Chief complaint: Skin/Abscess/Foreign Body Stated complaint: hematoma in L arm Time Seen by Provider: 02/13/24 07:17 Mode of Arrival: Ambulatory Source of Information: Patient Limitations: No Limitations Description of Symptoms (Recalled from ER Triage Doc. by RN): pt presents to the er for a knot about the size of a quarter on his L forearm, states it appeared 3 days ago, rates pain constant and 4/10, states he had one on his R hand a few weeks ago and they lanceted it open and gave him bactrum, denies fever or chills, states pain radiates down to his L hand History of Present Illness HPI narrative: This patient is a 68-year-old male with a history of hypertension, diabetes, tobacco dependence, and IV drug use presenting to the emergency department for evaluation with concern for left arm abscess. He states that is from using IV drugs. He notes it appeared 3 days ago and is progressively worsened. He had one on his right hand a few weeks ago and it was lanced and he was prescribed Bactrim, which did help. His right hand is doing well, but now the left forearm is his main concern. No fevers, chills, or other systemic symptoms. He denies any other concerns or complaints. He notes that he is having to use fentanyl because doctors are not adequately treating his pain, so he is having to take matters into his own hands and he is not good at it. He states he ran out, however. He currently denies any withdrawal symptoms. Related Data Home Medications ?Medication ?Instructions ?Recorded ?Confirmed pantoprazole 20 mg tablet,delayed 20 mg PO DAILY STOMACH 10/02/20 02/13/24 release semaglutide 0.25 mg or 0.5 mg (2 0.25 mg SQ WEEKLY Diabetes 12/12/21 02/13/24 mg/1.5 mL) subcutaneous pen injector (Ozempic) dapagliflozin propanediol 10 mg 10 mg PO DAILY Diabetes 12/28/21 02/13/24 tablet (Farxiga) duloxetine 30 mg capsule,delayed 30 mg PO DAILY mood 12/28/21 02/13/24 release furosemide 20 mg tablet 20 mg PO DAILY Fluid 12/28/21 02/13/24 testosterone cypionate 200 mg/mL 200 mg IM Q2W Supplement 01/01/22 02/13/24 intramuscular kit Previous Rx's ?Medication ?Instructions ?Recorded metformin 1,000 mg tablet See Rx Instructions .Route 05/02/22 .COMPLEX #180 tabs lidocaine 5 % topical patch 1 patch topical DAILY #15 ea 12/07/22 methocarbamol 500 mg tablet 1,000 mg (2 x 500 mg) PO Q8H #18 12/07/22 tabs sulfamethoxazole 800 1 tab PO BID 10 days #20 tabs 01/26/24 mg-trimethoprim 160 mg tablet (Bactrim DS) sulfamethoxazole 800 1 tab PO BID 10 days #20 tabs 02/13/24 mg-trimethoprim 160 mg tablet (Bactrim DS) Allergies Allergy/AdvReac Type Severity Reaction Status Date / Time No Known Allergies Allergy Verified 02/13/24 07:24 [facility] Disclaimer: The information contained in this section may have been updated after the patient was seen, as this information can be updated by other users. Medical History HTN (hypertension) Diabetes Family History Other No significant family history Social History Smoking Status: Current every day smoker tobacco type: cigarettes packs per day: 1 second hand exposure: No alcohol intake: never counseling provided: none substance use type: denies use current occupational status: retired Travel in the last 8 weeks: None household members: none housing: house current occupational exposures/hazards: No caffeine: Yes Other Medical History Have you received the Flu Vaccine for this season: Yes Have you received the Pneumonia Vaccine: Yes ROS Obtained: Yes All systems reviewed & no additional complaints except as documented Physical Exam General General appearance: alert and in no apparent distress Head Head exam: atraumatic and normocephalic Eye Eye exam: Present normal appearance, PERRL and EOMI ENT ENT exam: Present normal exam, normal oropharynx, mucous membranes moist and normal external ear exam Neck Neck exam: Present normal inspection, full ROM and trachea midline; Absent tenderness Chest Chest inspection: Present normal inspection and symmetric chest wall rise; Absent tenderness Respiratory Respiratory exam: Present normal lung sounds bilaterally; Absent respiratory distress, wheezes, stridor or accessory muscle use Cardiovascular Cardiovascular exam: Present regular rate and normal rhythm Abdominal Exam Abdominal exam: Present soft; Absent distention, tenderness or guarding Extremities Exam Extremities exam: Present full ROM, normal capillary refill and other (Quarter sized area of induration and fluctuance to the dorsal aspect of the left forearm with localized surrounding erythema and warmth. All compartments soft. Neurovascularly intact distally.); Absent tenderness or edema Back Exam Back exam: Present normal inspection and full ROM; Absent tenderness Neurological Exam Neurological exam: Present alert, oriented X3, CN II-XII intact and normal gait; Absent motor sensory deficit Psychiatric Psychiatric exam: Present normal affect and normal mood Skin Skin exam: Present warm and dry Medical Decision Making Medical Records Medical records reviewed: Yes I reviewed the patient's medical records. Screening: Per USPSTF and CDC recommendations, given the prevalence of disease in our region, it is our hospital?s policy to screen for HIV and viral Hepatitis for all patients aged 18 and over and those with ongoing risk factors. Garo Inquiry Pt receiving controlled substance: No Vital Signs: 02/13/24 07:10 02/13/24 07:30 02/13/24 08:17 Temperature 99.2 F 99.0 F Temperature Source Oral Oral Pulse Rate 128 H 108 H Pulse Rate [Left Radial] 118 H Respiratory Rate 20 18 18 Blood Pressure 161/86 H 131/80 Blood Pressure [Right Arm] 173/104 H Blood Pressure Mean 121 Blood Pressure Mean [Right Arm] 127 Blood Pressure Source Automatic Cuff Blood Pressure Source [Right Arm] Automatic Cuff Blood Pressure Position Sitting Blood Pressure Position [Right Arm] Sitting 02 Sat by Pulse Oximetry 97 97 Oxygen Delivery Method Room Air Room Air Lab Data Lab results reviewed: Yes I reviewed the patient's lab results. Orders (Tests/Meds): ED MEDICATIONS Discontinued Medications Generic Name Dose Route Start Last Admin Trade Name Freq PRN Reason Stop Dose Admin Lidocaine/Epinephrine 20 ml 02/13/24 07:21 02/13/24 07:28 Lidocaine 1% W/Epi 1:100,000 20ml Vial IJ 02/13/24 07:22 20 ml ONCE ONE Administration Trimethoprim/Sulfamethoxazole 1 each 02/13/24 07:21 02/13/24 07:28 Sulfa/Trimethoprim 1 Tablet PO 02/13/24 07:22 1 each ONCE ONE Administration ORDERS Category Date Time Status Consult Generation Engineering Technologist [CONS] Routine Cons 02/13/24 07:21 Active POCUS Point of Care (ER Only) Stat Exams 02/13/24 07:21 Completed Wound Culture and Gram Stain Stat Micro 02/13/24 08:05 Results Medical Decision Narrative: In summary, this patient is a 68-year-old male presenting to the Emergency Department for evaluation of left forearm pain and swelling. Differential diagnoses considered include but are not limited to abscess, cellulitis, NSTI, sepsis. Ruling out the most morbid conditions drove assessment. It should be noted patient's history includes diabetes and IV drug use which are not at goal therapy. This complicates all aspects of care by increasing patient's risk for morbidity. I reviewed patient's past medical records and noted evaluation for abscess of the hand 01/26/2024. On exam, the patient is sitting upright in bed in no acute distress. He denies any systemic symptoms/complaints. He has localized redness, warmth, and swelling to the left forearm with central abscess. Bedside ultrasound was performed. Low concern for NSTI based on absence of gas or crepitus. He also has absence of systemic symptoms and the lesion has slowly progressed as opposed to rapidly. Pain is not out of proportion. Doubt sepsis given lack of fevers, chills, or other systemic symptoms. Workup included bedside ultrasound and wound culture/Gram stain. Bedside ultrasound demonstrated abscess with surr ounding cellulitis. No gas. Informed consent was obtained and signed by the patient after risk versus benefit explained. Please see procedure note for further documentation. Ultimately, after incision and drainage, which the patient tolerated very well, I feel that he is appropriate for discharge home with prescription for Bactrim to treat cellulitis with abscess. He was given instructions for close follow- up, he was given resources for substance abuse. I had a very long discussion with him regarding the risks of drug use and recommended cessation, but I also gave him instructions for safety measures such as clean needles and skin prep to avoid infection such as this. He was given strict return precautions and was discharged after all questions were answered. Procedures Risk/Benefits of Procedure(s) Were Explained: Yes Abscess I/D Site: upper extremity Side (if applicable): left Local Anesthetic: lidocaine 1% and with epi Amount of anesthesia used (mL): 1 Technique: incised with #11 blade Irrigation: Yes Packing used?: none Complications: other (No complications) Limited Ultrasound Views:: Limited soft tissue ultrasound Indication: Soft tissue swelling and redness Identified structures: Location: Left forearm Findings: Abscess with cellulitis, no subcutaneous air Impression: Abscess of soft tissue with cellulitis Images were saved to permanent archive The study was technically adequate Soft Tissue CPT Codes: CPT Upper extremity: 99000-61 This study was performed by me, and I personally interpreted all images/videos. Based on my clinical judgement, these images were adequate and did not necessitate further imaging. Critical Care Critical Care Time Critical Care Time: No
[2024-02-13 08:17] VITALS: BP 131/80; PULSE 108; RESP 18; TEMP 37.2; O2SAT 97
--- NOTE | 2024-02-15 12:01 | PC.NURSE ---
discussed with wound culture, pt dc with bactrim, ntd
--- NOTE | 2024-02-17 12:06 | PC.NURSE ---
WOUND CULTURE DISCUSSED WITH DR JIMENEZ, NO NEW ORDERS
== END 2024-02-13 08:17 | disposition home or self-care (01) ==
PROVIDERS: Emergency Provider Emergency Medicine; PCP Nurse Practitioner Family
DX: L02.414 Cutaneous abscess of left upper limb (principal); L03.114 Cellulitis of left upper limb; F11.10 Opioid abuse, uncomplicated; R22.32 Localized swelling, mass and lump, left upper limb
CPT/HCPCS: 87070; 87077; 87186; 87205; 99283

== ENCOUNTER 2024-02-19 22:01 | Emergency (ER) | payer MEDICARE, MEDICAID, SELFPAY ==
[2024-02-19 22:14] VITALS: BP 146/80; PULSE 69; RESP 20; TEMP 36.7; O2SAT 94; BMI 26.8
--- NOTE | 2024-02-19 22:58 | ED_ITS ---
Discharge Plan Disposition Chief Complaint: PAIN Prescriptions Prescriptions: New cephalexin 500 mg capsule 500 mg PO Q6H 5 Days Qty: 20 0RF No Action testosterone cypionate 200 mg/mL kit 200 mg IM Q2W pantoprazole 20 mg tablet,delayed release (DR/EC) 20 mg PO DAILY furosemide 20 mg tablet 20 mg PO DAILY duloxetine 30 mg capsule,delayed release(DR/EC) 30 mg PO DAILY Farxiga 10 mg tablet 10 mg PO DAILY metformin 1,000 mg tablet See Rx Instructions .ROUTE .COMPLEX Qty: 180 0RF Dose Instruction: TAKE 1 TABLET BY MOUTH TWICE DAILY FOR DIABETES Rx Instructions: TAKE 1 TABLET BY MOUTH TWICE DAILY FOR DIABETES methocarbamol 500 mg tablet 1,000 mg PO Q8H Qty: 18 0RF lidocaine 5 % adhesive patch,medicated 1 patch topical DAILY Qty: 15 0RF Rx Instructions: leave on most painful area for up to 12 hrs sulfamethoxazole-trimethoprim [Bactrim DS] 800-160 mg tablet 1 tab PO BID 10 Days Qty: 20 0RF sulfamethoxazole-trimethoprim [Bactrim DS] 800-160 mg tablet 1 tab PO BID 10 Days Qty: 20 0RF Ozempic 0.25 mg or 0.5 mg(2 mg/1.5 mL) pen injector 0.25 mg SQ WEEKLY Rx Instructions: for 4 doses Referrals Follow up/Referrals: Geoffrey West MD [Primary Care Provider] - See instructions Activity Restrictions/Add. Instructions Additional Instructions/Restrictions: Please finish Bactrim antibiotic as prescribed, take new antibiotic as prescribed with food, return to the emergency department for any worsening signs or symptoms, follow-up with primary care provider. Clinical Impressions Clinical Impression: Cellulitis of forearm, left Instructions Patient Instructions: Cellulitis Print Language Print Language: Tongan Discharge ED Provider: Cam Andre General Adult HPI <ROBI Partida - Last Filed: 02/19/24 23:28> General Chief complaint: PAIN Stated complaint: left arm painful and swollen Time Seen by Provider: 02/19/24 22:24 Mode of Arrival: Ambulatory Source of Information: Patient Limitations: No Limitations Description of Symptoms (Recalled from ER Triage Doc. by RN): Pt ambulatory to ED with cc of left arm pain. Pt states having an I&D last week. Pt states he has had drainage and throbbing pain. Pt states the pain is throbbing and has become increasingly worse. Pt states the pain radiates down his left fingers. Pt has a rasied area on his left forearm that is red, swollen, and hot to the touch. History of Present Illness HPI narrative: 68-year-old male presents to the emergency department with a left forearm area of cellulitis/abscess, was actually recently seen in the emergency department on 02/13/2020 for for this same complaint. He had an I&D performed, tolerated procedure well, was been placed on Bactrim he has been taking the medication as prescribed. Patient denies any other acute symptomatology except for pain, he believes that the area of abscess formation/cellulitis is worsening , he complains of an episode of drainage this afternoon. He denies any real fever chills, other systemic symptoms, chest pain, nausea vomiting shortness of breath, abdominal pain, no urinary type symptomatology, no numbness or tingling moves extremities to command, states he does have some radiating pain down to his fingers,. Past medical history consistent with hypertension, type 2 diabetes, tobacco dependence, history of IV drug use, he admits to using heroin/fentanyl and that he admits this abscess was from IV drug use. Initial triage vitals unremarkable. Onset (ago): day(s) Related Data Home Medications ?Medication ?Instructions ?Recorded ?Confirmed pantoprazole 20 mg tablet,delayed 20 mg PO DAILY STOMACH 10/02/20 02/13/24 release semaglutide 0.25 mg or 0.5 mg (2 0.25 mg SQ WEEKLY Diabetes 12/12/21 02/13/24 mg/1.5 mL) subcutaneous pen injector (Ozempic) dapagliflozin propanediol 10 mg 10 mg PO DAILY Diabetes 12/28/21 02/13/24 tablet (Farxiga) duloxetine 30 mg capsule,delayed 30 mg PO DAILY mood 12/28/21 02/13/24 release furosemide 20 mg tablet 20 mg PO DAILY Fluid 12/28/21 02/13/24 testosterone cypionate 200 mg/mL 200 mg IM Q2W Supplement 01/01/22 02/13/24 intramuscular kit Previous Rx's ?Medication ?Instructions ?Recorded metformin 1,000 mg tablet See Rx Instructions .Route 05/02/22 .COMPLEX #180 tabs lidocaine 5 % topical patch 1 patch topical DAILY #15 ea 12/07/22 methocarbamol 500 mg tablet 1,000 mg (2 x 500 mg) PO Q8H #18 12/07/22 tabs sulfamethoxazole 800 1 tab PO BID 10 days #20 tabs 01/26/24 mg-trimethoprim 160 mg tablet (Bactrim DS) sulfamethoxazole 800 1 tab PO BID 10 days #20 tabs 02/13/24 mg-trimethoprim 160 mg tablet (Bactrim DS) cephalexin 500 mg capsule 500 mg PO Q6H 5 days #20 caps 02/19/24 Allergies Allergy/AdvReac Type Severity Reaction Status Date / Time No Known Allergies Allergy Verified 02/13/24 07:24 [facility] <ROBI Partida - Last Filed: 02/19/24 23:28> [facility] Disclaimer: The information contained in this section may have been updated after the patient was seen, as this information can be updated by other users. Medical History HTN (hypertension) Diabetes Family History Other No significant family history Social History Smoking Status: Current every day smoker tobacco type: cigarettes packs per day: 1 second hand exposure: No alcohol intake: never counseling provided: none substance use type: denies use current occupational status: retired Travel in the last 8 weeks: None household members: none housing: house current occupational exposures/hazards: No caffeine: Yes Other Medical History Have you received the Flu Vaccine for this season: Yes Have you received the Pneumonia Vaccine: Yes <ROBI Partida - Last Filed: 02/19/24 23:28> ROS Obtained: Yes All systems reviewed & no additional complaints except as documented Physical Exam <ROBI Partida - Last Filed: 02/19/24 23:28> General General appearance: alert and in no apparent distress Head Head exam: atraumatic and normocephalic Eye Eye exam: Present PERRL and EOMI ENT ENT exam: Present mucous membranes moist Neck Neck exam: Present normal inspection Chest Chest inspection: Present normal inspection and symmetric chest wall rise Respiratory Respiratory exam: Present normal lung sounds bilaterally; Absent respiratory distress Cardiovascular Cardiovascular exam: Present regular rate and normal rhythm Abdominal Exam Abdominal exam: Present soft; Absent tenderness, guarding, rebound or rigidity Extremities Exam Extremities exam: Present normal inspection Neurological Exam Neurological exam: Present alert and oriented X3 Psychiatric Psychiatric exam: Present normal affect Skin Skin exam: Present warm, dry, erythema and other (There is a small well- circumscribed area on the patient's left dorsal aspect of the forearm, there is no fluctuance to my exam, there is some mild erythema, no hot to touch sensation, and some induration) Medical Decision Making <ROBI Partida - Last Filed: 02/19/24 23:28> Medical Records Medical records reviewed: Yes I reviewed the patient's medical records. Screening: Per USPSTF and CDC recommendations, given the prevalence of disease in our region, it is our hospital?s policy to screen for HIV and viral Hepatitis for all patients aged 18 and over and those with ongoing risk factors. Garo Inquiry Pt receiving controlled substance: No Garo was queried for this patient: No Vital Signs: 02/19/24 22:14 Temperature 98.0 F Temperature Source Oral Pulse Rate [Left Radial] 69 Respiratory Rate 20 Blood Pressure [Right Arm] 146/80 H Blood Pressure Mean [Right Arm] 102 Blood Pressure Source [Right Arm] Automatic Cuff Blood Pressure Position [Right Arm] Sitting 02 Sat by Pulse Oximetry 94 L Oxygen Delivery Method Room Air Lab Data Lab results reviewed: Yes I reviewed the patient's lab results. Orders (Tests/Meds): ORDERS Category Date Time Status POCUS Point of Care (ER Only) Stat Exams 02/19/24 23:01 Ordered Medical Decision Narrative: 68-year-old male presents to the emergency department for left forearm abscess/cellulitis differential diagnose include but not limited to abscess, cellulitis, NSTI, lipoma, epidermal inclusion cyst. I along with the attending physician Saw and examined this patient. I obtained bedside POCUS of the soft tissue Limited MSK/soft tissue ultrasound Indication: [-Soft tissue pain -Soft tissue swelling -Soft tissue redness Identified structures: Location: [Left dorsal forearm] Findings: -Cellulitis-I along with the attending physician reviewed the patient's bedside ultrasound, there is cobblestoning and hyper echoic, evidence of cellulitis, no discrete abscess formation though would be amicable to drainage Impression: -Cellulitis of soft tissue Images [were saved] to permanent archive The study [was] technically adequate I discussed these results with the patient at the bedside, I do not see any d iscrete abscess formation that would be amicable to drainage on POCUS bedside ultrasound and on physical exam, the area is not hot to the touch, patient is on adequate Bactrim dose therapy, will add on Streptococcus coverage with Keflex 500 mg every 6 for 5 days, patient will take medicine as prescribed, finish Bactrim medication. Return to the emergency department any worsening signs or symptoms. Follow-up with primary care provider, patient voiced understand agreement current treatment plan/discharge plan. <Cam Andre MD - Last Filed: 02/19/24 23:34> Vital Signs: 02/19/24 22:14 Temperature 98.0 F Temperature Source Oral Pulse Rate [Left Radial] 69 Respiratory Rate 20 Blood Pressure [Right Arm] 146/80 H Blood Pressure Mean [Right Arm] 102 Blood Pressure Source [Right Arm] Automatic Cuff Blood Pressure Position [Right Arm] Sitting 02 Sat by Pulse Oximetry 94 L Oxygen Delivery Method Room Air Orders (Tests/Meds): ORDERS Category Date Time Status POCUS Point of Care (ER Only) Stat Exams 02/19/24 23:01 Ordered Medical Decision Narrative: 68-year-old male presents to the emergency department for left forearm abscess/cellulitis differential diagnose include but not limited to abscess, cellulitis, NSTI, lipoma, epidermal inclusion cyst. I along with the attending physician Saw and examined this patient. I obtained bedside POCUS of the soft tissue Limited MSK/soft tissue ultrasound Indication: [-Soft tissue pain -Soft tissue swelling -Soft tissue redness Identified structures: Location: [Left dorsal forearm] Findings: -Cellulitis-I along with the attending physician reviewed the patient's bedside ultrasound, there is cobblestoning and hyper echoic, evidence of cellulitis, no discrete abscess formation though would be amicable to drainage Impression: -Cellulitis of soft tissue Images [were saved] to permanent archive The study [was] technically adequate I discussed these results with the patient at the bedside, I do not see any discrete abscess formation that would be amicable to drainage on POCUS bedside ultrasound and on physical exam, the area is not hot to the touch, patient is on adequate Bactrim dose therapy, will add on Streptococcus coverage with Keflex 500 mg every 6 for 5 days, patient will take medicine as prescribed, finish Bactrim medication. Return to the emergency department any worsening signs or symptoms. Follow-up with primary care provider, patient voiced understand agreement current treatment plan/discharge plan. I, Cam Andre MD, was present at the time of patient's arrival and agree with plan and management as stated above. Critical Care <ROBI Partida - Last Filed: 02/19/24 23:28> Critical Care Time Critical Care Time: No
[2024-02-19 23:36] VITALS: BP 146/80; PULSE 69; RESP 20; TEMP 36.7; O2SAT 94
== END 2024-02-19 23:38 | disposition home or self-care (01) ==
LOC: ER 22:08
PROVIDERS: Emergency Provider Student in an Organized Health Care Education/Training Program; PCP Internal Medicine Adolescent Medicine
DX: L03.114 Cellulitis of left upper limb (principal); M79.602 Pain in left arm
CPT/HCPCS: 99283

== ENCOUNTER 2024-07-21 10:22 | Outpatient (CLI) | payer MEDICARE, MEDICAID, SELFPAY ==
--- OUTSIDE RECORDS SUMMARY | 2024-07-21 10:25 | XMS_ITS | Data Portability ---
Author Organization [facility] [place] [facility] ADMIN Address [address] [place] [id number] Assessment No assessment recorded. Plan of Treatment Reminders Order Date Submit Date Provider Last Modified By Organization Details Last Modified Time Details Appointments OV EST 15 2024 09:00A M Jeffrey Carlos Jr, MD Not available Not available Not available Lab PSA, serum or plasma 2024 025 [email or web address] , [address] [place] [address] [place], [address], 07/02/2024 16:43:15 testoster one, free + total, serum 2024 025 [email or web address] [facility] (Lab Registration) , [address] [place] [address] [place], [address], 07/09/2024 07:53:01 testoster one, free + total, serum 2023 024 [facility] (Lab Registration) , [address] [place] [address] [place], [address], 01/07/2024 07:19:49 CBC 2023 024 [email or web address] [facility] (Lab Registration) , [address] [place] [address] [place], [address], 12/31/2023 21:19:45 testoster one, free + total, serum 2023 024 [email or web address] [facility] (Lab Registration) , [address] [place] [address] [place], [address], 07/11/2023 07:49:09 PSA, serum or plasma [address] [facility] (Lab Registration) , [address] [place] [address] [place], [address], 07/05/2023 12:11:06 CBC [address] [facility] (Lab Registration) , [address] [place] [address] [place], [address], 07/05/2023 12:11:06 testoster one, free + total, serum 2022 023 [facility] (Lab Registration) , [address] [place] [address] [place], [address], 01/22/2023 11:56:40 CBC 2022 023 [facility] (Lab Registration) , [address] [place] [address] [place], [address], 01/03/2023 15:02:56 PSA, serum or plasma 2022 023 HERMES Not available 07/03/2022 17:02:48 Referral None recorded. Procedures None recorded. Surgeries None recorded. Imaging None recorded. Medication Orders testoster one cypionate 200 mg/mL intramusc ular oil 2023 024 [facility] #[id number], [address], [id number], 12/31/2023 10:07:05 testoster one cypionate 200 mg/mL intramusc ular oil 2023 024 [facility] #[id number], [address], [id number], 07/04/2023 14:05:18 testoster one cypionate 200 mg/mL intramusc ular oil 2022 023 [id number], [address] [place], [id number], 01/03/2023 09:58:25 anastrozo le 1 mg tablet 2022 023 HERMES [facility] #[id number], [address], [id number], 01/03/2023 09:59:20 testoster one cypionate 200 mg/mL intramusc ular oil 2022 023 [email or web address] [facility] #[id number], [address] [place], [id number], 07/04/2022 16:16:31 Patient TargetsNo targets recorded. Patient InstructionsNo instructions recorded. Reason for Referral None Reported. Results Created Date Observation Date Name Description Value Unit Range Abnormal Flag Note LastModifiedBy Organization Detail LastModifiedTime 07/04/1907/03/2022 PROST ATE SPECI FIC AG (PSA) prostate specific Ag (PSA) 0.54 NG/mL 0.0-4. 0 Not Available [facility] (Lab Registration) [address] [place], [address], 07/03/2022 17:02:48 07/04/19 23 07/03/2022 PROST ATE SPECI FIC AG (PSA) note Unles s other grady noted testi ng perfo rmed at: [facility] [address] [place] [address] [phone] Prudencio dillard MD CLIA: [id number] Not Available [facility] (Lab Registration) [address] [place], [address], 07/03/2022 17:02:48 07/04/19 23 07/03/2022 TESTO STERO NE FREE/ TOT EQUIL IB note Unles s other grady noted testi ng perfo rmed at: [facility] [address] [place] [address] [phone] Prudencio dillard MD CLIA: [id number] Not Available [facility] (Lab Registration) [address] , [place], [address], 07/15/2022 16:13:08 07/04/19 23 07/15/2022 TESTO STERO NE FREE/ TOT EQUIL IB testosterone , serum 545.6 NG/dL 264.0- 916.0 This [facility] LC/MS -MS metho d is curre ntly certi fied by the CDC Hormo ne Stand ardiz ation Progr am (HoSt ). Adult male refer ence inter lay is based on a popul ation of healt hy nonob franc[place] males (BMI <30) betwe en 19 and 39 years old. Dominga khan et.al . JCEM 2017, 102;1 161-1 173. PMID: 66892 103. Not Available [facility] (Lab Registration) [address] , [place], [address], 07/15/2022 16:13:08 07/04/19 23 07/15/2022 TESTO STERO NE FREE/ TOT EQUIL IB testosterone , free TNP NG/dL Unabl e to calcu late resul t since non-n umeri c resul t obtai anjali for compo nent test. Not Available [facility] (Lab Registration) [address] , [place], [address], 07/15/2022 16:13:08 07/04/19 23 07/15/2022 TESTO STERO NE FREE/ TOT EQUIL IB % free PSA TNP % Test not perfo rmed. Insuf ficie nt speci men to perfo rm or compl ete zaira sis. Conta ct: Alexandra August 08 Perfo rmed at: [facility] [place] [address] , [place] [address] Lab Direc tor: Lin macias MD, Phone : [phone] SENT TO REFER ENCE LAB Not Available [facility] (Lab Registration) [address] [place], [address], 07/15/2022 16:13:08 01/04/20 23 01/03/2023 CBC AUTO NO DIFF (HEMO GRAM) WBC 5.7 10 4.5-11 .5 Not Available [facility] (Lab Registration) [address] [place], [address], 01/03/2023 15:02:56 01/04/20 23 01/03/2023 CBC AUTO NO DIFF (HEMO GRAM) RBC 5.36 10 4.25-5 .57 Not Available [facility] (Lab Registration) [address] [place], [address], 01/03/2023 15:02:56 01/04/20 23 01/03/2023 CBC AUTO NO DIFF (HEMO GRAM) HGB 15.8 g/dL 13.5-1 7.2 Not Available [facility] (Lab Registration) [address] [place], [address], 01/03/2023 15:02:56 01/04/20 23 01/03/2023 CBC AUTO NO DIFF (HEMO GRAM) HCT 47.9 % 42.0-5 2.0 Not Available [facility] (Lab Registration) [address] [place], [address], 01/03/2023 15:02:56 01/04/20 23 01/03/2023 CBC AUTO NO DIFF (HEMO GRAM) MCV 89.4 fL 80-95 Not Available [facility] (Lab Registration) [address] [place], [address], 01/03/2023 15:02:56 01/04/20 23 01/03/2023 CBC AUTO NO DIFF (HEMO GRAM) MCH 29.5 pg 27.0-3 4.0 Not Available [facility] (Lab Registration) [address] [place], [address], 01/03/2023 15:02:56 01/04/20 23 01/03/2023 CBC AUTO NO DIFF (HEMO GRAM) MCHC 33.0 g/dL 32.0-3 6.0 Not Available [facility] (Lab Registration) [address] [place], [address], 01/03/2023 15:02:56 01/04/20 23 01/03/2023 CBC AUTO NO DIFF (HEMO GRAM) platelet count 95 10 150-45 0 low Not Available [facility] (Lab Registration) [address] [place], [address], 01/03/2023 15:02:56 01/04/20 23 01/03/2023 CBC AUTO NO DIFF (HEMO GRAM) RDW 14.6 % 12.3-1 5.1 Not Available [facility] (Lab Registration) [address] [place], [address], 01/03/2023 15:02:56 01/04/20 23 01/03/2023 CBC AUTO NO DIFF (HEMO GRAM) MPV 12.3 fL 7.4-10 .4 high Not Available [facility] (Lab Registration) [address] [place], [address], 01/03/2023 15:02:56 01/04/20 23 01/03/2023 CBC AUTO NO DIFF (HEMO GRAM) note Unles s other grady noted testi ng perfo rmed at: [facility] [address] [place] [address] [phone] Prudencio dillard MD CLIA: [id number] Not Available [facility] (Lab Registration) [address] [place], [address], 01/03/2023 15:02:56 01/04/20 23 01/03/2023 TESTO STERO NE TOTAL note Unles s other grady noted testi ng perfo rmed at: [facility] [place] [address] [phone] Prudencio dillard MD CLIA: [id number] Not Available [facility] (Lab Registration) [address] , [place], [address], 01/04/2023 08:20:22 01/04/20 23 01/04/2023 TESTO STERO NE TOTAL testosterone , serum 710 NG/dL 264-91 6 Adult male refer ence inter lay is based on a popul ation of healt hy nonob francisco males (BMI <30) betwe en 19 and 39 years old. Dominga khan, et.al . JCEM 2017, 102;1 161-1 173. PMID: 88052 103. Perfo rmed at: [facility] [address] [place] [address] Lab Direc tor: Ruel caro PhD, Phone : [phone] Not Available [facility] (Lab Registration) [address], [place], [address], 01/04/2023 08:20:22 01/04/20 23 01/03/2023 TESTO STERO NE FREE note Unles s other grady noted testi ng perfo rmed at: [facility] [address] [place] [address] [phone] Prudencio dillard MD CLIA: [id number] Not Available [facility] (Lab Registration) [address], [place], [address], 01/10/2023 21:09:13 01/04/20 23 01/10/2023 TESTO STERO NE FREE free testosterone (direct) 5.5 pg/mL 6.6-18 .1 low Perfo rmed at: [facility] [place] [address] [facility] [place] [address] Lab Direc tor: Lin macias MD, Phone : [phone] SENT TO REFER ENCE LAB Not Available [facility] (Lab Registration) [address] [place], [address], 01/10/2023 21:09:13 07/04/19 24 07/04/2023 CBC AUTO NO DIFF (HEMO GRAM) WBC 6.0 10 4.5-11 .5 Not Available [facility] (Lab Registration) [address] [place], [address], 07/04/2023 17:30:06 07/04/19 24 07/04/2023 CBC AUTO NO DIFF (HEMO GRAM) RBC 5.77 10 4.25-5 .57 high Not Available [facility] (Lab Registration) [address] [place], [address], 07/04/2023 17:30:06 07/04/19 24 07/04/2023 CBC AUTO NO DIFF (HEMO GRAM) HGB 16.1 g/dL 13.5-1 7.2 Not Available [facility] (Lab Registration) [address] [place], [address], 07/04/2023 17:30:06 07/04/19 24 07/04/2023 CBC AUTO NO DIFF (HEMO GRAM) HCT 49.2 % 42.0-5 2.0 Not Available [facility] (Lab Registration) [address] [place], [address], 07/04/2023 17:30:06 07/04/19 24 07/04/2023 CBC AUTO NO DIFF (HEMO GRAM) MCV 85.3 fL 80-95 Not Available [facility] (Lab Registration) [address] [place], [address], 07/04/2023 17:30:06 07/04/19 24 07/04/2023 CBC AUTO NO DIFF (HEMO GRAM) MCH 27.9 pg 27.0-3 4.0 Not Available [facility] (Lab Registration) [address] [place], [address], 07/04/2023 17:30:06 07/04/19 24 07/04/2023 CBC AUTO NO DIFF (HEMO GRAM) MCHC 32.7 g/dL 32.0-3 6.0 Not Available [facility] (Lab Registration) [address] [place], [address], 07/04/2023 17:30:06 07/04/19 24 07/04/2023 CBC AUTO NO DIFF (HEMO GRAM) platelet count 112 10 150-45 0 low Not Available [facility] (Lab Registration) [address] [place], [address], 07/04/2023 17:30:06 07/04/19 24 07/04/2023 CBC AUTO NO DIFF (HEMO GRAM) RDW 15.8 % 12.3-1 5.1 high Not Available [facility] (Lab Registration) [address] [place], [address], 07/04/2023 17:30:06 07/04/19 24 07/04/2023 CBC AUTO NO DIFF (HEMO GRAM) MPV 12.6 fL 7.4-10 .4 high Not Available [facility] (Lab Registration) [address] [place], [address], 07/04/2023 17:30:06 07/04/19 24 07/04/2023 CBC AUTO NO DIFF (HEMO GRAM) note Unles s other grady noted testi ng perfo rmed at: [facility] [address] [place] [address] [phone] Prudencio dillard MD CLIA: [id number] Not Available [facility] (Lab Registration) [address] [place], [address], 07/04/2023 17:30:06 07/04/19 24 07/04/2023 PROST ATE SPECI FIC AG (PSA) prostate specific Ag (PSA) 0.58 NG/mL 0.0-4. 0 Not Available [facility] (Lab Registration) [address] [place], [address], 07/04/2023 17:56:26 07/04/19 24 07/04/2023 PROST ATE SPECI FIC AG (PSA) note Unles s other grady noted testi ng perfo rmed at: [facility] [address] [place], [place] [address] [phone] Prudencio dillard MD CLIA: [id number] Not Available [facility] (Lab Registration) [address] [place], [address], 07/04/2023 17:56:26 07/04/19 24 07/04/2023 TESTO STERO NE TOTAL note Unles s other grady noted testi ng perfo rmed at: [facility] [address] [place] [address] [phone] Prudencio dillard MD CLIA: [id number] Not Available [facility] (Lab Registration) [address], [place], [address], 07/06/2023 07:09:27 07/04/19 24 07/06/2023 TESTO STERO NE TOTAL testosterone , serum 920 NG/dL 264-91 6 high Adult male refer ence inter lay is based on a popul ation of healt hy nonob francisco males (BMI <30) betwe en 19 and 39 years old. Dominga khan, et.al . JCEM 2017, 102;1 161-1 173. PMID: 19210 103. Perfo rmed at: [facility] [address] [place] [address] Lab Direc tor: Ruel caro PhD, Phone : [phone] Not Available [facility] (Lab Registration) [address] [place], [address], 07/06/2023 07:09:27 07/04/19 24 07/04/2023 TESTO STERO NE FREE note Unles s other grady noted testi ng perfo rmed at: [facility] [address] [facility] [place] [address] [phone] Prudencio dillard MD CLIA: [id number] Not Available [facility] (Lab Registration) [address] [place], [address], 07/13/2023 23:12:29 07/04/19 24 07/13/2023 TESTO STERO NE FREE free testosterone (direct) 10.2 pg/mL 6.6-18 .1 Perfo rmed at: [facility] [place] [address] [facility] , [place] [address] Lab Direc tor: Lin macias MD, Phone : [phone] SENT TO REFER ENCE LAB Not Available [facility] (Lab Registration) [address] [place], [address], 07/13/2023 23:12:29 12/31/19 24 12/31/2023 CBC AUTO NO DIFF (HEMO GRAM) WBC 8.1 10 4.5-11 .5 Not Available [facility] (Lab Registration) [address] [place], [address], 12/31/2023 15:47:15 12/31/19 24 12/31/2023 CBC AUTO NO DIFF (HEMO GRAM) RBC 5.39 10 4.25-5 .57 Not Available [facility] (Lab Registration) [address] [place], [address], 12/31/2023 15:47:15 12/31/19 24 12/31/2023 CBC AUTO NO DIFF (HEMO GRAM) HGB 16.6 g/dL 13.5-1 7.2 Not Available [facility] (Lab Registration) [address] [place], [address], 12/31/2023 15:47:15 12/31/19 24 12/31/2023 CBC AUTO NO DIFF (HEMO GRAM) HCT 49.1 % 42.0-5 2.0 Not Available [facility] (Lab Registration) [address] [place], [address], 12/31/2023 15:47:15 12/31/19 24 12/31/2023 CBC AUTO NO DIFF (HEMO GRAM) MCV 91.1 fL 80-95 Not Available [facility] (Lab Registration) [address] [place], [address], 12/31/2023 15:47:15 12/31/19 24 12/31/2023 CBC AUTO NO DIFF (HEMO GRAM) MCH 30.8 pg 27.0-3 4.0 Not Available [facility] (Lab Registration) [address] [place], [address], 12/31/2023 15:47:15 12/31/19 24 12/31/2023 CBC AUTO NO DIFF (HEMO GRAM) MCHC 33.8 g/dL 32.0-3 6.0 Not Available [facility] (Lab Registration) [address] [place], [address], 12/31/2023 15:47:15 12/31/19 24 12/31/2023 CBC AUTO NO DIFF (HEMO GRAM) platelet count 123 10 150-45 0 low Not Available [facility] (Lab Registration) [address] [place], [address], 12/31/2023 15:47:15 12/31/19 24 12/31/2023 CBC AUTO NO DIFF (HEMO GRAM) RDW 15.4 % 12.3-1 5.1 high Not Available [facility] (Lab Registration) [address] [place], [address], 12/31/2023 15:47:15 12/31/19 24 12/31/2023 CBC AUTO NO DIFF (HEMO GRAM) MPV 11.9 fL 7.4-10 .4 high Not Available [facility] (Lab Registration) [address] [place], [address], 12/31/2023 15:47:15 12/31/19 24 12/31/2023 CBC AUTO NO DIFF (HEMO GRAM) note Unles s other grady noted testi ng perfo rmed at: [facility] [address] [place] [address] [phone] Prudencio dillard MD CLIA: [id number] Not Available [facility] (Lab Registration) [address] [facility], [place], [address], 12/31/2023 15:47:15 Result Notes None recorded. Problems Name Problem SNOMED Code Status Onset Date Resolution Date Notes Provider Name and Address Organization Details Recorded Time Hepatic failure 21566683 Active 2022 Marc wu, [place]E - [facility] [place] [facility] [place] 3 13:11:06 Chronic renal failure 50344920 Active 2022 Marc wu [place] - [facility] - [place] [facility] [place] 3 13:11:20 Hypertensive disorder 91714589 Active 2022 Marc wu, [place] - [facility] [place] 3 13:11:42 Diabetes mellitus 15527764 Active 2022 Marc Yves jazmin, [place] - [facility] - [place] [facility] [place] 3 13:11:52 Problem Notes None recorded. Medical Equipment None Reported. Allergies No known drug allergies Medications Name Sig Start Date Stop Date Status Note LastModified by Organization Details LastModified Time amoxicillin 500 mg capsule TAKE 1 CAPSULE BY MOUTH THREE TIMES DAILY FOR 10 DAYS active Not Available Not Available Not Available anastrozole 1 mg tablet TAKE 1/2 TABLET BY MOUTH 2 TIMES A WEEK 2023 active Not Available Not Available Not Avai lable gabapentin 600 mg tablet TAKE 1 TABLET BY MOUTH FOUR TIMES DAILY active Not Available Not Available Not Available ropinirole 1 mg tablet TAKE 1 TABLET BY MOUTH EVERY DAY AFTER SUPPER active Not Available Not Available No t Available lisinopril 20 mg-hydrochlo rothiazide 12.5 mg tablet TAKE 1 TABLET BY MOUTH DAILY FOR BLOOD PRESSURE active Not Available Not Available No t Available sulfamethoxa zole 800 mg-trimethop rim 160 mg tablet TAKE 1 TABLET BY MOUTH TWICE DAILY FOR 10 DAYS active Not Available Not Available No t Available spironolacto ne 25 mg tablet active Not Available Not Available Not Available hydrocodone 7.5 mg-acetamino phen 325 mg tablet TAKE 1 TABLET BY MOUTH EVERY 6 HOURS NEEDED FOR PAIN active Not Available Not Available No t Available cephalexin 500 mg capsule TAKE 1 CAPSULE BY MOUTH EVERY 6 HOURS FOR 5 DAYS active Not Available Not Available No t Available pantoprazole 40 mg tablet,delay ed release TAKE 1 TABLET BY MOUTH TWICE DAILY active Not Available Not Available No t Available metformin 1,000 mg tablet TAKE 1 TABLET BY MOUTH TWICE DAILY active Not Available Not Available No t Available lisinopril 10 mg tablet TAKE 1 TABLET BY MOUTH DAILY active Not Available Not Available Not Available omeprazole 20 mg capsule,marisabel yed release active Not Available Not Available Not Available furosemide 20 mg tablet TAKE 1 TABLET BY MOUTH DAILY active Not Available Not Available Not Available testosterone cypionate 200 mg/mL intramuscula r oil ADMINISTER 1 ML IN THE MUSCLE EVERY 2 WEEKS active Not Available Not Available No t Available spironolacto ne 50 mg tablet active Not Available Not Available Not Available escitalopram 20 mg tablet TAKE 1 TABLET BY MOUTH DAILY FOR DEPRESSION active Not Available Not Available N ot Available duloxetine 30 mg capsule,marisabel yed release TAKE 1 CAPSULE BY MOUTH TWICE DAILY active Not Available Not Available No t Available lactulose 10 gram/15 mL oral solution TAKE 15 ML BY MOUTH EVERY DAY active Not Available Not Available No t Available dapagliflozi n propanediol 10 mg tablet TAKE 1 TABLET BY MOUTH DAILY active Not Available Not Available Not Available Ozempic 0.25 mg or 0.5 mg (2 mg/1.5 mL) subcutaneous pen injector ADMINISTER DIRECTED SUBCUTANEOU SLY ONCE WEEKLY active Not Available Not Available No t Available Ozempic 1 mg/dose (4 mg/3 mL) subcutaneous pen injector INJECT 1MG UNDER THE SKIN ONCE WEEKLY active Not Available Not Available No t Available Ozempic 2 mg/dose (8 mg/3 mL) subcutaneous pen injector INJECT 2 MG UNDER THE SKIN ONCE WEEKLY ON THE SAME DAY EACH WEEK active Not Available Not Available No t Available Ozempic 0.25 mg or 0.5 mg (2 mg/3 mL) subcutaneous pen injector INJECT DIRECTED SUBCUTANEOU SLY ONCE WEEKLY active Not Available Not Available No t Available Vitals Date Recorded Body height Body mass index (BMI) Body weight Body temperature Provider Name and Address Organization Details Last Updated DateTime 07/03/2022 182.88 cm 30.5 kg/m2 062776.28 g 97.1 [degF] Jeffreymendy Marinelli [facility] [place] 07/03/2022 13:17:37 Date Recorded Body height Body mass index (BMI) Body weight Body temperature Provider Name and Address Organization Details Last Updated DateTime 01/03/2023 182.88 cm 30.5 kg/m2 747464.28 g 97 [degF] Gisel Ernst [facility] [place] 01/03/2023 09:25:34 Date Recorded Body height Body mass index (BMI) Body weight Body temperature Provider Name and Address Organization Details Last Updated DateTime 07/04/2023 182.88 cm 25.8 kg/m2 58226.55 g 97.2 [degF] Mikayla Nelson [facility] [place] 07/04/2023 09:29:36 Date Recorded Body height Body mass index (BMI) Body weight Body temperature Provider Name and Address Organization Details Last Updated DateTime 12/31/2023 182.88 cm 25.8 kg/m2 35595.55 g 98.2 [degF] Jeffreygatitorin Marinelli [facility] [place] 12/31/2023 09:02:41 Date Recorded Body height Body mass index (BMI) Body weight Body temperature Provider Name and Address Organization Details Last Updated DateTime 07/02/2024 182.88 cm 25.8 kg/m2 49396.55 g 98.1 [degF] Tyshawn Corbinjazmin [facility] [place] 07/02/2024 10:13:48 Social History Question Answer Notes LastModified by Organizat ion Details LastModified Time Tobacco Smoking Status Current Every Day Smoker [facility]rin [facility] [place] 07/03/2022 13:12:54 What Is Your Level Of Alcohol Consumption? None [email or web address] Information not available 07/03/2022 Sex: Unknown Functional Status None recorded. Mental Status None recorded. Family History Relationship Description Onset Age of this Age Resolved Age Notes LastModified by Organization Details LastModified Time Mother Malignant neoplastic disease dec [email or web address] Not available 2022 13:12:16 Father Malignant neoplastic disease dec [email or web address] Not available 2022 13:12:32 Brother Family history unknown Not available 2022 13:12:44 Medical History No medical history recorded. Past Encounters Encounter ID Performer Location Encounter Start Date Encounter Closed Date Diagnosis/Indication Diagnosis SNOMED-CT Code Diagnosis ICD10 Code Diagnosis Note [id number] Katiuska Boucher NP [facility] [address] [id number] 04/12/2022 11:09:15 04/12/2022 11:21:49 Cirrhosis of liver 38302234 K74.60 Spoke to patient briefly. Patient reports new developmen t of peripheral edema and memory loss. Advised telephone visit is not appropriat e he would need to come into the office for further examinatio n and consult. Appointmen t scheduled for April 16, 2022 at 11:00 a.m. [id number] Katiuska Boucher NP [facility] [address] [address] 04/16/2022 10:50:33 04/16/2022 11:37:22 Cirrhosis of liver 83101275 K74.60 Cirrhosis: Suspect secondary to hepatitis- C, no prior history of decompensa tion; however, starting to notice some peripheral edema-trac e esophageal varices - last EGD (01/15/22) . The patient will continue acid suppressio n therapy. If no dysplastic tissues identified , then repeat EGD is suggested for Jean surveillan ce in 3 years. The patient also be re-screeni for esophageal varices in 3 years or if he has clinical evidence of decompensa tion.-hepa tic encephalop athy: reports memory loss. Will start on Lactulose- ascites: None. + peripheral edema. Continue spironolac tone 50mg/lasix 20mg-HCC screening: labs and liver u/s last done in 10/26, declines to repeat today-He has completed the vaccinatio n series for both Hep A & B.-avoid NSAIDs, limit Tylenol to less than 2 g daily-limi t salt intake to no more than 2 g per day 2. Hepatitis- C:finished Epclusa end of August 2020; genotype 3, VL 1.24 million (prior to treatment) , F4 by fibrosure; HCV quant negative 3 months post treatment. - Recommend he avoid risky situations that would increase risk of reinfectio n. He demonstrat ed understand ing 3. History of constipati on: Miralax prn, starting lactulose, KUB ordered today 4. Jean's esophagus, continue pantoprazo le 40 mg daily. Repeat EGD scheduled for Jean's surveillan ce and surveillan ce of esophageal varices.5. Duodenal erosions: continue PPI, avoid NSAIDs. 6. Colorectal cancer screening: patient reports a family history of colon cancer in his father. His last screening colonoscop y he reports was at age 54 and normal. Declines further colonoscop y screenings at this time. 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 He continues on 200 mg of testostero ne every 2 weeks with good benefit. Surveillan ce labs to be obtained today and refills performed. Patient's last testostero ne injection was 9 days ago. Multiple renal cysts [id number] N28.1 patient reassured simple cysts are common and benign. [id number] [facility] [place] Jr, [facility] [address] [address] 01/03/2023 09:16:14 01/03/2023 09:56:20 Deficiency of testosterone biosynthesis [id number] E29.1 patient with history of testostero ne deficiency . He continues on 200 mg of testostero ne every 2 weeks with good benefit. Surveillan ce labs to be obtained today and refills performed. Patient's last testostero ne injection was 10 days ago. Multiple renal cysts 253 [id number] N28.1 patient reassured simple cysts are common and benign. [id number] Jeffrey [place] Jr, MD [facility] [address] [address] 07/04/2023 09:26:28 07/04/2023 10:36:25 Deficiency of testosterone biosynthesis [id number] E29.1 patient with history of testostero ne deficiency . He continues on 200 mg of testostero ne every 2 weeks with good benefit. Surveillan ce labs to be obtained today and refills performed. Patient's last testostero ne injection was 9 days ago. Multiple renal cysts 253 [id number] N28.1 patient reassured simple cysts are common and benign. Screening for malignant neoplasm of prostate [id number] Z12.5 repeat PSA today. Patient's PSA year ago well within normal limits. [id number] Jeffrey [place] Jr, MD [facility] [address] [address] 12/31/2023 08:59:10 12/31/2023 09:45:01 Testosterone level below reference range [id number] R89.1 Patient with history of testostero ne deficiency . He continues on 200 mg of testostero ne cypionate with good benefit. We will refill his prescripti on today. Surveillan ce labs drawn. Screening for malignant neoplasm of prostate [id number] Z12.5 patient's PSA in June was very normal at 0.58. Patient reassured and we will check next year. Multiple renal cysts 253 [id number] N28.1 patient reassured simple cysts are common and benign. [id number] Jeffrey [place] Jr, MD [facility] [address] [address] 07/02/2024 10:07:08 07/02/2024 10:26:29 Testosterone level below reference range [id number] R79.89 Patient with history of testostero ne deficiency . He continues on 200 mg of testostero ne cypionate with good benefit. We will refill his prescripti on today. Surveillan ce labs drawn. Screening for malignant neoplasm of prostate [id number] Z12.5 patient's PSA in June was very normal at 0.58. We will repeat today. Multiple renal cysts [id number] Q61.02 patient reassured simple cysts are common and benign. Health Concerns Section Related Observation LastModified by Organization Detai ls LastModified Time None Recorded Concern Status LastModified by Organization Details LastModified Time None Recorded Advance Directives Directive None Recorded Payers Encounter Date Sequence Insurance Name Policy Number Policy Parker Covered Member ID Parker Member ID Guarantor Name 07/03/2022 1 [place] [id number] Jacob Greg Tracy [id number] Jacob Tracy 01/03/2023 1 [place] [id number] Jacob Barriosd [id number] Jacob Barriosd 07/04/2023 1 [place] [id number] [id number] Jacob Tracy 07/04/2023 2 [place] [facility] - FFS/TRADITIONA L Jacob Tracy [id number] Jacob Tracy 12/31/2023 1 [place] [id number] Tracy [id number] Jacob Tracy 12/31/2023 2 [place] [facility] [place]FS/TRADITIONA L Jacob Tracy [id number] Jacob Tracy 07/02/2024 2 [place] [facility] - [place]FS/TRADITIONA L Jacob Barriosd [id number] Jacob Tracy 07/02/2024 1 [place] Jacob Tracy [id number] Jacob Tracy Notes Date Note Type Note Provider Name and Address Organization Details Recorded Time 07/03/2022 text/html patient is a 66-year-old white male with a history of testosterone deficiency and bilateral simple renal cysts. He has a history of a solitary left testicle. His right testicle is removed in the distant past for infectious complications due to a hydrocele. He returns today in routine follow-up. He continues on testosterone cypionate 200 mg every 2 weeks and 0.5 mg of anastrozole twice a week. States he continues to feel good and feels like testosterone replacement he is beneficial. Surveillance labs his last visit showed his testosterone levels were super normal. His testosterone injection was only 4 days prior to his labs.Patient with a history of stage 3 chronic kidney disease. 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 Jeffrey [place] Jr, MD [address] [place] [address], [address], [place], [address], [facility] & [place] 07/03/2022 14:15:36 01/03/2023 text/html Patient is a 67-year-old white male with a history of testosterone deficiency. Returns today for routine six-month visit. He continues to benefit from the testosterone replacement. patient continues on 200 mg of testosterone cypionate every 2 weeks with good benefit. He is also on anastrozole 0.5 mg twice a week. Lab work at his last visit in June showed a total testosterone of 545. His last injection was 10 days ago. Previous PSA in June was normal at 0.5. Jeffrey [place] Jr, MD [address] [place] [address], [address], [address], [facility] & [place] 01/03/2023 10:56:14 07/04/2023 text/html patient is a 67-year-old white male with a history of testosterone deficiency. He continues on testosterone cypionate 200 mg every 2 weeks as well as anastrozole twice a week with good benefit. His testosterone levels in his last visit were 710/5.5. Hemoglobin was 15.8. He states his last injection was 9 days ago.Patient also with a history of some renal cysts.His PSA in June 2022 was normal at 0.5. Jeffrey [place] Jr, MD [address] [place] [address], [address], [address], [facility] & [place] 07/04/2023 14:06:24 12/31/2023 text/html Patient is a 68-year-old white male with history of testosterone deficiency and simple renal cyst. He returns today for six-month follow-up. He continues on 200 mg of testosterone cypionate every 2 weeks. States he continues to derive benefit from the medication. His testosterone at his last visit was 920 in June. His hemoglobin was normal at 16.1 in his PSA was normal at 0.5. He denies any new urologic problems. Jeffrey [place] Jr, MD [address], [address], [place], [address], [facility] - [place] & [place] 12/31/2023 10:07:52 07/02/2024 text/html Patient is a 68-year-old white male with history testosterone deficiency returns for routine six-month follow-up. He continues on 200 mg of testosterone cypionate every 2 weeks with good benefit. His testosterone levels in December were 635/14.0.His PSA last year was within normal limits at 0.5.Patient also with history of multiple simple renal cyst. Jeffrey [place] Jr, MD [address] [place] [address], [address], [place], [address], [place] - [facility] - [place] & [place] 07/02/2024 10:33:43
[2024-07-21 10:49] LABS: Basophils % 0.3 % (0.1-2.0); Eosinophils # 0.1 K/mm3 (0.0-0.4); Eosinophils % 1.9 % (0.1-12.0); Hematocrit 46.7 % (42.0-52.0); Hemoglobin 15.4 g/dL (14.1-18.0); Lymphocytes # 0.9 K/mm3 (0.7-4.5); Lymphocytes % 14.3 % (10-50); Mean Corpuscular Hemoglobin 29.2 pg (27.0-31.2); Mean Corpuscular Volume 88.6 fl (80-94); Monocytes # 0.5 K/mm3 (0.1-1.0); Monocytes % 8.3 % (1.7-9.3); Neutrophils # 4.7 K/mm3 (1.8-7.8); Neutrophils % 74.9 % (37.0-80.0); Nucleated Red Blood Cells # 0 10^3/uL; Nucleated Red Blood Cells % 0 %; Platelet Count 107 K/mm3 (142-424); Red Blood Count 5.27 M/mm3 (4.60-6.20); Red Cell Distribution Width 14.9 % (11.5-17.5); Red Cell Distribution Width-SD 48.7 fL; White Blood Count 6.2 K/mm3 (4.8-10.8)
[2024-07-21 11:18] LABS: Hemoglobin A1C 5.4 % (4.0-6.0)
[2024-07-21 11:28] LABS: Chloride 102 mmol/L (98-107); Sodium 139 mmol/L (136-145)
[2024-07-21 11:29] LABS: Potassium 4.3 mmoL/L (3.5-5.1)
[2024-07-21 11:31] LABS: Alanine Aminotransferase 16 U/L (12-78); Albumin/Globulin Ratio 1.3 (1.1-1.8); Anion Gap 9.3 mEq/L (5-15); Aspartate Amino Transferase 27 U/L (17-59); Blood Urea Nitrogen 12 mg/dl (9-20); Carbon Dioxide 32 mmol/L (22.0-30.0); Estimated Glomerular Filt Rate 60 ml/min (>60); GFR (African American) 73 ML/MIN (>60)
[2024-07-21 11:32] LABS: Alkaline Phosphatase 94 U/L (38-126); Bilirubin,Total 0.6 mg/dl (0.2-1.3); Calcium 9.3 mg/dl (8.4-10.2); Chol/HDL Ratio 2.4 (1-3.5); Cholesterol 131 mg/dl (140-200); Glucose 110 mg/dl (74-100); HDL Cholesterol 54 mg/dl (40-60); Triglycerides 103 mg/dl (30-150); VLDL Cholesterol 21 mg/dL (0-40)
[2024-07-21 11:36] LABS: Creatinine,Urine Random 78 mg/dL (Not Estab.)
[2024-07-21 11:43] LABS: Direct LDL Cholesterol 60.44 mg/dL (100-129)
[2024-07-21 11:46] LABS: Microalbumin/Creatinine Ratio 13.9
== END 2024-07-21 23:59 | disposition home or self-care (01) ==
LOC: LAB 10:24
PROVIDERS: PCP Internal Medicine Adolescent Medicine; Visit Provider Nurse Practitioner Family
DX: E11.22 Type 2 diabetes mellitus with diabetic chronic kidney disease (principal); I12.9 Hypertensive chronic kidney disease with stage 1 through stage 4 chronic kidney disease, or unspecified chronic kidney disease; N18.2 Chronic kidney disease, stage 2 (mild)
CPT/HCPCS: 36415; 80053; 80061; 82043; 82570; 83036; 85025

== ENCOUNTER 2024-09-07 13:45 | Outpatient (CLI) | payer MEDICARE, MEDICAID, SELFPAY ==
--- OUTSIDE RECORDS SUMMARY | 2024-09-07 13:49 | XMS_ITS | Data Portability ---
Author Organization [facility] [place] [facility] ADMIN Address [address] [place] [id number] Assessment No assessment recorded. Plan of Treatment Reminders Order Date Submit Date Provider Last Modified By Organization Details Last Modified Time Details Appointments OV EST 15 2024 09:00A M Jeffrey Carlos Jr, MD Not available Not available Not available Lab [facility], serum or plasma [facility] , [address] [place] [address] [place], [address], 07/02/2024 16:43:15 testoster one, free + total, serum 2024 025 [email or web address] [facility] (Lab Registration) , [address] [place] [address] [place], [address], 07/09/2024 07:53:01 testoster one, free + total, serum 2023 024 [facility] (Lab Registration) , [address] [place] [address] [place], [address], 01/07/2024 07:19:49 CBC 2023 024 [email or web address] [facility] (Lab Registration) , [address] [place] [address] [place], [address], 12/31/2023 21:19:45 testoster one, free + total, serum 2023 024 [email or web address] [facility] (Lab Registration) , [address] [place] [address] [place], [address], 07/11/2023 07:49:09 PSA, serum or plasma [address] [facility] (Lab Registration) , [address] [place] [address] [place], [address], 07/05/2023 12:11:06 CBC [address] [facility] (Lab Registration) , [address] [place] [address] [place], [address], 07/05/2023 12:11:06 testoster one, free + total, serum 2022 023 [email or web address] [facility] (Lab Registration) , [address] [place] [address] [place], [address], 01/22/2023 11:56:40 CBC 2022 023 [facility] (Lab Registration) , [address] [place] [address] [place], [address], 01/03/2023 15:02:56 PSA, serum or plasma 2022 023 HERMES Not available 07/03/2022 17:02:48 Referral None recorded. Procedures None recorded. Surgeries None recorded. Imaging None recorded. Medication Orders testoster one cypionate 200 mg/mL intramusc ular oil 2023 024 [facility] #[id number], [address], [id number], 12/31/2023 10:07:05 testoster one cypionate 200 mg/mL intramusc ular oil 2023 024 [facility] #[id number], [address], [id number], 07/04/2023 14:05:18 testoster one cypionate 200 mg/mL intramusc ular oil 2022 023 [id number], [address], [id number], 01/03/2023 09:58:25 anastrozo le 1 mg tablet 2022 023 HERMES [facility] #85603, [address], [id number], 01/03/2023 09:59:20 testoster one cypionate 200 mg/mL intramusc ular oil 2022 023 [email or web address] [facility] #[id number], [address] [place], [id number], 07/04/2022 16:16:31 Patient TargetsNo targets recorded. Patient InstructionsNo instructions recorded. Reason for Referral None Reported. Results Created Date Observation Date Name Description Value Unit Range Abnormal Flag Note LastModifiedBy Organization Detail LastModifiedTime 07/04/1907/03/2022 PROST ATE SPECI FIC AG (PSA) prostate specific Ag (PSA) 0.54 NG/mL 0.0-4. 0 Not Available [facility] (Lab Registration) [address] [place], [address], 07/03/2022 17:02:48 07/04/19 23 07/03/2022 PROST ATE SPECI FIC AG (PSA) note Unles s other grady noted testi ng perfo rmed at: [facility] [address] [place] [address] [phone] Prudencio dillard MD CLIA: [id number] Not Available [facility] (Lab Registration) [address] [place], [address], 07/03/2022 17:02:48 07/04/19 23 07/03/2022 TESTO STERO NE FREE/ TOT EQUIL IB note Unles s other grady noted testi ng perfo rmed at: [facility] [address] [place] [address] [phone] Prudencio dillard MD CLIA: [id number] Not Available [facility] (Lab Registration) [address] , [place], [address], 07/15/2022 16:13:08 07/04/19 23 07/15/2022 TESTO STERO [...] . JCEM 2017, 102;1 161-1 173. PMID: 50686 103. Not Available [facility] (Lab Registration) [address] , [place], [address], 07/15/2022 16:13:08 07/04/19 23 07/15/2022 TESTO STERO NE FREE/ TOT EQUIL IB testosterone , free TNP NG/dL Unabl e to calcu late resul t since non-n umeri c resul t obtai anjali for compo nent test. Not Available [facility] (Lab Registration) [address] , [place], [address], 07/15/2022 16:13:08 07/04/19 23 07/15/2022 TESTO STERO NE FREE/ TOT EQUIL IB % free PSA TNP % Test not perfo rmed. Insuf ficie nt speci men to perfo rm or compl ete zaira sis. Conta ct: Alexandra August 08 Perfo rmed at: [facility] [place] [address] , [place] [address] Lab Direc tor: Lin macias MD, Phone : [phone] SENT TO REFER ENCE LAB Not Available [facility] (Lab Registration) [address] [place], [address], 07/15/2022 16:13:08 01/04/20 23 01/03/2023 CBC AUTO NO DIFF (HEMO GRAM) WBC 5.7 10 4.5-11 .5 Not Available [facility] (Lab Registration) [address] [place], [address], 01/03/2023 15:02:56 01/04/20 23 01/03/2023 CBC AUTO NO DIFF (HEMO GRAM) RBC 5.36 10 4.25-5 .57 Not Available [facility] (Lab Registration) [address] [place], [address], 01/03/2023 15:02:56 01/04/20 23 01/03/2023 CBC AUTO NO DIFF (HEMO GRAM) HGB 15.8 g/dL 13.5-1 7.2 Not Available [facility] (Lab Registration) [address] [place], [address], 01/03/2023 15:02:56 01/04/20 23 01/03/2023 CBC AUTO NO DIFF (HEMO GRAM) HCT 47.9 % 42.0-5 2.0 Not Available [facility] (Lab Registration) [address] [place], [address], 01/03/2023 15:02:56 01/04/20 23 01/03/2023 CBC AUTO NO DIFF (HEMO GRAM) MCV 89.4 fL 80-95 Not Available [facility] (Lab Registration) [address] [place], [address], 01/03/2023 15:02:56 01/04/20 23 01/03/2023 CBC AUTO NO DIFF (HEMO GRAM) MCH 29.5 pg 27.0-3 4.0 Not Available [facility] (Lab Registration) [address] [place], [address], 01/03/2023 15:02:56 01/04/20 23 01/03/2023 CBC AUTO NO DIFF (HEMO GRAM) MCHC 33.0 g/dL 32.0-3 6.0 Not Available [facility] (Lab Registration) [address] [place], [address], 01/03/2023 15:02:56 01/04/20 23 01/03/2023 CBC AUTO NO DIFF (HEMO GRAM) platelet count 95 10 150-45 0 low Not Available [facility] (Lab Registration) [address] [place], [address], 01/03/2023 15:02:56 01/04/20 23 01/03/2023 CBC AUTO NO DIFF (HEMO GRAM) RDW 14.6 % 12.3-1 5.1 Not Available [facility] (Lab Registration) [address] [place], [address], 01/03/2023 15:02:56 01/04/20 23 01/03/2023 CBC AUTO NO DIFF (HEMO GRAM) MPV 12.3 fL 7.4-10 .4 high Not Available [facility] (Lab Registration) [address] [place], [address], 01/03/2023 15:02:56 01/04/20 23 01/03/2023 CBC AUTO NO DIFF (HEMO GRAM) note Unles s other grady noted testi ng perfo rmed at: [facility] [address] [place] [address] [phone] Prudencio dillard MD CLIA: [id number] Not Available [facility] (Lab Registration) [address] [place], [address], 01/03/2023 15:02:56 01/04/20 23 01/03/2023 TESTO STERO NE TOTAL note Unles s other grady noted testi ng perfo rmed at: [facility] [place] [address] [phone] Prudencio dillard MD CLIA: [id number] Not Available [facility] (Lab Registration) [address] , [place], [address], 01/04/2023 08:20:22 01/04/20 23 01/04/2023 TESTO STERO NE TOTAL testosterone , serum 710 NG/dL 264-91 6 Adult male refer ence inter lay is based on a popul ation of healt hy nonob francisco males (BMI <30) betwe en 19 and 39 years old. Dominga khan, et.al . JCEM 2017, 102;1 161-1 173. PMID: 03847 103. Perfo rmed at: [facility] [address] [place] [address] Lab Direc tor: Ruel caro PhD, Phone : [phone] Not Available [facility] (Lab Registration) [address], [place], [address], 01/04/2023 08:20:22 01/04/20 23 01/03/2023 TESTO STERO NE FREE note Unles s other grady noted testi ng perfo rmed at: [facility] [address] [place] [address] [phone] Prudencio dillard MD CLIA: [id number] Not Available [facility] (Lab Registration) [address], [place], [address], 01/10/2023 21:09:13 01/04/20 23 01/10/2023 TESTO STERO NE FREE free testosterone (direct) 5.5 pg/mL 6.6-18 .1 low Perfo rmed at: [facility] lynda pearson [address] [facility] [place] [address] Lab Direc tor: Lin macias MD, Phone : [phone] SENT TO REFER ENCE LAB Not Available [facility] (Lab Registration) [address] [place], [address], 01/10/2023 21:09:13 07/04/19 24 07/04/2023 CBC AUTO NO DIFF (HEMO GRAM) WBC 6.0 10 4.5-11 .5 Not Available [facility] (Lab Registration) [address] [place], [address], 07/04/2023 17:30:06 07/04/19 24 07/04/2023 CBC AUTO NO DIFF (HEMO GRAM) RBC 5.77 10 4.25-5 .57 high Not Available [facility] (Lab Registration) [address] [place], [address], 07/04/2023 17:30:06 07/04/19 24 07/04/2023 CBC AUTO NO DIFF (HEMO GRAM) HGB 16.1 g/dL 13.5-1 7.2 Not Available [facility] (Lab Registration) [address] [place], [address], 07/04/2023 17:30:06 07/04/19 24 07/04/2023 CBC AUTO NO DIFF (HEMO GRAM) HCT 49.2 % 42.0-5 2.0 Not Available [facility] (Lab Registration) [address] [place], [address], 07/04/2023 17:30:06 07/04/19 24 07/04/2023 CBC AUTO NO DIFF (HEMO GRAM) MCV 85.3 fL 80-95 Not Available [facility] (Lab Registration) [address] [place], [address], 07/04/2023 17:30:06 07/04/19 24 07/04/2023 CBC AUTO NO DIFF (HEMO GRAM) MCH 27.9 pg 27.0-3 4.0 Not Available [facility] (Lab Registration) [address] [place], [address], 07/04/2023 17:30:06 07/04/19 24 07/04/2023 CBC AUTO NO DIFF (HEMO GRAM) MCHC 32.7 g/dL 32.0-3 6.0 Not Available [facility] (Lab Registration) [address] [place], [address], 07/04/2023 17:30:06 07/04/19 24 07/04/2023 CBC AUTO NO DIFF (HEMO GRAM) platelet count 112 10 150-45 0 low Not Available [facility] (Lab Registration) [address] [place], [address], 07/04/2023 17:30:06 07/04/19 24 07/04/2023 CBC AUTO NO DIFF (HEMO GRAM) RDW 15.8 % 12.3-1 5.1 high Not Available [facility] (Lab Registration) [address] [place], [address], 07/04/2023 17:30:06 07/04/19 24 07/04/2023 CBC AUTO NO DIFF (HEMO GRAM) MPV 12.6 fL 7.4-10 .4 high Not Available [facility] (Lab Registration) [address] [place], [address], 07/04/2023 17:30:06 07/04/19 24 07/04/2023 CBC AUTO NO DIFF (HEMO GRAM) note Unles s other grady noted testi ng perfo rmed at: [facility] [address] [place] [address] [phone] Prudencio dillard MD CLIA: [id number] Not Available [facility] (Lab Registration) [address] [place], [address], 07/04/2023 17:30:06 07/04/19 24 07/04/2023 PROST ATE SPECI FIC AG (PSA) prostate specific Ag (PSA) 0.58 NG/mL 0.0-4. 0 Not Available [facility] (Lab Registration) [address] [place], [address], 07/04/2023 17:56:26 07/04/19 24 07/04/2023 PROST ATE SPECI FIC AG (PSA) note Unles s other grady noted testi ng perfo rmed at: [facility] [address] [place], [place] [address] [phone] Prudencio dillard MD CLIA: [id number] Not Available [facility] (Lab Registration) [address] [place], [address], 07/04/2023 17:56:26 07/04/19 24 07/04/2023 TESTO STERO NE TOTAL note Unles s other grady noted testi ng perfo rmed at: [facility] [address] [place] [address] [phone] Prudencio dillard MD CLIA: [id number] Not Available [facility] (Lab Registration) [address], [place], [address], 07/06/2023 07:09:27 07/04/19 24 07/06/2023 TESTO STERO NE TOTAL testosterone , serum 920 NG/dL 264-91 6 high Adult male refer ence inter lay is based on a popul ation of healt hy nonob francisco males (BMI <30) betwe en 19 and 39 years old. Dominga khan, et.al . JCEM 2017, 102;1 161-1 173. PMID: 57771 103. Perfo rmed at: [facility] [address] [place] [address] Lab Direc tor: Ruel caro PhD, Phone : [phone] Not Available [facility] (Lab Registration) [address] [place], [address], 07/06/2023 07:09:27 07/04/19 24 07/04/2023 TESTO STERO NE FREE note Unles s other grady noted testi ng perfo rmed at: [facility] [address] [facility] [place] [address] [phone] Prudencio dillard MD CLIA: [id number] Not Available [facility] (Lab Registration) [address] [place], [address], 07/13/2023 23:12:29 07/04/19 24 07/13/2023 TESTO STERO NE FREE free testosterone (direct) 10.2 pg/mL 6.6-18 .1 Perfo rmed at: [facility] aVlerie pearson [address] [facility] , [place] [address] Lab Direc tor: Lin macias MD, Phone : [phone] SENT TO REFER ENCE LAB Not Available [facility] (Lab Registration) [address] [place], [address], 07/13/2023 23:12:29 12/31/19 24 12/31/2023 CBC AUTO NO DIFF (HEMO GRAM) WBC 8.1 10 4.5-11 .5 Not Available [facility] (Lab Registration) [address] [place], [address], 12/31/2023 15:47:15 12/31/19 24 12/31/2023 CBC AUTO NO DIFF (HEMO GRAM) RBC 5.39 10 4.25-5 .57 Not Available [facility] (Lab Registration) [address] [place], [address], 12/31/2023 15:47:15 12/31/19 24 12/31/2023 CBC AUTO NO DIFF (HEMO GRAM) HGB 16.6 g/dL 13.5-1 7.2 Not Available [facility] (Lab Registration) [address] [place], [address], 12/31/2023 15:47:15 12/31/19 24 12/31/2023 CBC AUTO NO DIFF (HEMO GRAM) HCT 49.1 % 42.0-5 2.0 Not Available [facility] (Lab Registration) [address] [place], [address], 12/31/2023 15:47:15 12/31/19 24 12/31/2023 CBC AUTO NO DIFF (HEMO GRAM) MCV 91.1 fL 80-95 Not Available [facility] (Lab Registration) [address] [place], [address], 12/31/2023 15:47:15 12/31/19 24 12/31/2023 CBC AUTO NO DIFF (HEMO GRAM) MCH 30.8 pg 27.0-3 4.0 Not Available [facility] (Lab Registration) [address] [place], [address], 12/31/2023 15:47:15 12/31/19 24 12/31/2023 CBC AUTO NO DIFF (HEMO GRAM) MCHC 33.8 g/dL 32.0-3 6.0 Not Available [facility] (Lab Registration) [address] [place], [address], 12/31/2023 15:47:15 12/31/19 24 12/31/2023 CBC AUTO NO DIFF (HEMO GRAM) platelet count 123 10 150-45 0 low Not Available [facility] (Lab Registration) [address] [place], [address], 12/31/2023 15:47:15 12/31/19 24 12/31/2023 CBC AUTO NO DIFF (HEMO GRAM) RDW 15.4 % 12.3-1 5.1 high Not Available [facility] (Lab Registration) [address] [place], [address], 12/31/2023 15:47:15 12/31/19 24 12/31/2023 CBC AUTO NO DIFF (HEMO GRAM) MPV 11.9 fL 7.4-10 .4 high Not Available [facility] (Lab Registration) [address] [place], [address], 12/31/2023 15:47:15 12/31/19 24 12/31/2023 CBC AUTO NO DIFF (HEMO GRAM) note Unles s other grady noted testi ng perfo rmed at: [facility] [address] [place] [address] [phone] Prudencio dillard MD CLIA: [id number] Not Available [facility] (Lab Registration) [address] [place], [address], 12/31/2023 15:47:15 12/31/19 24 12/31/2023 TESTO STERO NE FREE/ TOT EQUIL IB note Unles s other grady noted testi ng perfo rmed at: [facility] [address] [place] [phone] Prudecnio dillard MD CLIA: [id number] Not Available [facility] (Lab Registration) [address] [place], [address], 01/10/2024 07:14:29 12/31/19 24 01/10/2024 TESTO STERO NE FREE/ TOT EQUIL IB testosterone , serum 635.7 NG/dL 264.0- 916.0 This [facility] LC/MS [...] . JCEM 2017, 102;1 161-1 173. PMID: 76784 103. Not Available [facility] (Lab Registration) [address] [place], [address], 01/10/2024 07:14:29 12/31/19 24 01/10/2024 TESTO STERO NE FREE/ TOT EQUIL IB testosterone , free 14.05 NG/dL 5.00-2 1.00 Not Available [facility] (Lab Registration) [address] [place], [address], 01/10/2024 07:14:29 12/31/19 24 01/10/2024 TESTO STERO NE FREE/ TOT EQUIL IB % free PSA 2.21 % 1.50-4 .20 Perfo rmed at: [facility] [place] [address] , [place] [address] Lab Direc tor: Lin macias MD, Phone : [phone] SENT TO REFER ENCE LAB Not Available [facility] (Lab Registration) [address], [place], [address], 01/10/2024 07:14:29 07/03/19 25 07/02/2024 PROST ATE SPECI FIC AG (PSA) prostate specific Ag (PSA) 0.34 NG/mL 0.0-4. 0 Not Available [facility] (Lab Registration) [address] [place], [address], 07/02/2024 16:43:15 07/03/19 25 07/02/2024 PROST ATE SPECI FIC AG (PSA) note Unles s other grady noted testi ng perfo rmed at: [facility] [address] [place] [address] [phone] Prudencio dillard MD CLIA: [id number] Not Available [facility] (Lab Registration) [address] [place], [address], 07/02/2024 16:43:15 07/03/19 25 07/02/2024 TESTO STERO NE TOTAL note Unles s other grady noted testi ng perfo rmed at: [facility] [address] [place], [place] [address] [phone] Prudencio dillard MD CLIA: [id number] Not Available [facility] (Lab Registration) [address] [place], [address], 07/03/2024 08:13:26 07/03/19 25 07/03/2024 TESTO STERO NE TOTAL testosterone , serum 283 NG/dL 264-91 6 Adult male refer rakeshe inter lay is based on a popul ation of healt hy nonob francisco males (BMI <30) betwe en 19 and 39 years old. Dominga khan, et.al . JCEM 2017, 102;1 161-1 173. PMID: 82594 103. Perfo rmed at: [facility] [address] [place] [address] Lab Direc tor: Ruel caro PhD, Phone : [phone] Not Available [facility] (Lab Registration) [address] [place], [address], 07/03/2024 08:13:26 07/03/19 25 07/02/2024 TESTO STERO NE FREE note Unles s other grady noted testi ng perfo rmed at: [facility] [address] [employer] [place] [address] [phone] Prudencio dillard MD CLIA: [id number] Not Available [facility] (Lab Registration) [address], [place], [address], 07/10/2024 02:09:37 07/03/19 25 07/10/2024 TESTO STERO NE FREE free testosterone (direct) 1.4 pg/mL 6.6-18 .1 low Perfo rmed at: [facility] [address] [place] [address] Lab Direc tor: Lin macias MD, Phone : [phone] SENT TO REFER ENCE LAB Not Available [facility] (Lab Registration) [address] [place], [address], 07/10/2024 02:09:37 Result Notes None recorded. Problems Name Problem SNOMED Code Status Onset Date Resolution Date Notes Provider Name and Address Organization Details Recorded Time Hepatic failure 41736300 Active 2022 [facility] [place] 3 13:11:06 Chronic renal failure 44335936 Active 2022 JUNE Pratt [facility] [place] 3 13:11:20 Hypertensive disorder 15724456 Active 2022 [facility] [place] 3 13:11:42 Diabetes mellitus 15862984 Active 2022 JUNE Pratt [facility] & [place] 3 13:11:52 Problem Notes None recorded. Medical [...] testosterone cypionate 200 mg/mL intramuscula r oil INJECT 1 ML INTO THE MUSCLE ONCE EVERY 2 WEEKS 2024 active Not Available Not Available Not Avai lable spironolacto ne 50 mg tablet active Not [...] Not Available Not Available No t Available Farxiga 10 mg tablet TAKE 1 TABLET BY [...] Updated DateTime 07/02/2024 182.88 cm 25.8 kg/m2 68998.55 g 98.1 [degF] Tyshawn Delisa [facility] [place] 07/02/2024 10:13:48 Date Recorded Body height Body mass index (BMI) Body weight Body temperature Provider Name and Address Organization Details Last Updated DateTime 07/03/2022 182.88 cm 30.5 kg/m2 423175.28 g 97.1 [degF] Marc Marinelli [facility] [place] 07/03/2022 13:17:37 Date Recorded Body height Body mass index (BMI) Body weight Body temperature Provider Name and Address Organization Details Last Updated DateTime 07/04/2023 182.88 cm 25.8 kg/m2 28180.55 g 97.2 [degF] Mikayla Nelson [facility] [place] 07/04/2023 09:29:36 Date Recorded Body height Body mass index (BMI) Body weight Body temperature Provider Name and Address Organization Details Last Updated DateTime 12/31/2023 182.88 cm 25.8 kg/m2 79141.55 g 98.2 [degF] Marc Marinelli [facility] [place] 12/31/2023 09:02:41 Date Recorded Body height Body mass index (BMI) Body weight Body temperature Provider Name and Address Organization Details Last Updated DateTime 01/03/2023 182.88 cm 30.5 kg/m2 636356.28 g 97 [degF] Gisel Ernst [facility] [place] 01/03/2023 09:25:34 Social History None recorded. Functional Status Question Answer Note LastModified by Organization D etails LastModified Time What is your level of alcohol consumption? None [email or web address] Information not available 07/03/2022 Mental Status None recorded. Family History Relationship Description Onset Age of this Age Resolved Age Notes LastModified by Organization Details LastModified Time Mother Malignant neoplastic disease dec [email or web address] Not available 2022 13:12:16 Father Malignant neoplastic disease dec [email or web address] Not available 2022 13:12:32 Brother Family history unknown [email or web address] Not available 2022 13:12:44 Medical History No medical history recorded. Past Encounters Encounter ID Performer Location Encounter Start Date Encounter Closed Date Diagnosis/Indication Diagnosis SNOMED-CT Code Diagnosis ICD10 Code Diagnosis Note [id number] Katiuska Boucher NP [facility] [address] [place] [address] 04/12/2022 11:09:15 04/12/2022 11:21:49 Cirrhosis of liver 34295436 K74.60 Spoke to patient briefly. Patient reports new developmen t of peripheral edema and memory loss. Advised telephone visit is not appropriat e he would need to come into the office for further examinatio n and consult. Appointmen t scheduled for April 16, 2022 at 11:00 a.m. [id number] Katiuska Boucher NP [facility] [address] [facility] [address] [place] [address] 04/16/2022 10:50:33 04/16/2022 11:37:22 Cirrhosis of liver 44230052 K74.60 Cirrhosis: Suspect secondary to hepatitis- C, no prior history of decompensa tion; however, starting to notice some peripheral edema-trac e esophageal varices - last EGD (01/15/22) . The patient will continue acid suppressio n therapy. If no dysplastic tissues identified , then repeat EGD is suggested for Jean surveillan ce in 3 years. The patient also be re-screeni ng for esophageal varices in 3 years or [...] further colonoscop y screenings at this time. 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 He continues on 200 mg of testostero ne every 2 weeks with good benefit. Surveillan ce labs to be obtained today and refills performed. Patient's last testostero ne injection was 9 days ago. Multiple renal cysts [id number] N28.1 patient reassured simple cysts are common and benign. [id number] Jeffrey Carlos Jr, MD [facility] [address] [address] 01/03/2023 09:16:14 01/03/2023 09:56:20 Deficiency of testosterone biosynthesis 64841664 E29.1 patient with history of testostero ne deficiency . He continues on 200 mg of testostero ne every 2 weeks with good benefit. Surveillan ce labs to be obtained today and refills performed. Patient's last testostero ne injection was 10 days ago. Multiple renal cysts 253 701026 N28.1 patient reassured simple cysts are common and benign. [id number] Jeffrey Carlos Jr, MD [address] [address] 07/04/2023 09:26:28 07/04/2023 10:36:25 Deficiency of testosterone biosynthesis [id number] E29.1 patient with history of testostero ne deficiency . He continues on 200 mg of testostero ne every 2 weeks with good benefit. Surveillan ce labs to be obtained today and refills performed. Patient's last testostero ne injection was 9 days ago. Multiple renal cysts [id number] N28.1 patient reassured simple cysts are common and benign. Screening for malignant neoplasm of prostate [id number] Z12.5 repeat PSA today. Patient's PSA year ago well within normal limits. [id number] Jeffrey Carlos Jr, MD [facility] [place] [address] [address] 12/31/2023 08:59:10 12/31/2023 09:45:01 Testosterone level below reference range [id number] R89.1 Patient with history of testostero ne deficiency . He continues on 200 mg of testostero ne cypionate with good benefit. We will refill his prescripti on today. Surveillan ce labs drawn. Screening for malignant neoplasm of prostate [id number] Z12.5 patient's PSA in June was very normal at 0.58. Patient reassured and we will check next year. Multiple renal cysts [id number] N28.1 patient reassured simple cysts are common and benign. [id number] Jeffrey Carlos Jr, MD [facility] [address] [address] 07/02/2024 10:07:08 07/02/2024 10:26:29 Testosterone level below reference range [id number] R79.89 Patient with history of testostero ne deficiency . He continues on 200 mg of testostero ne cypionate with good benefit. We will refill his prescripti on today. Surveillan ce labs drawn. Screening for malignant neoplasm of prostate [id number] Z12.5 patient's PSA in June was very normal at 0.58. We will repeat today. Multiple renal cysts [id number] Q61.02 patient reassured simple cysts are common and benign. Health Concerns Section Related Observation LastModified by Organization Detai ls LastModified Time None Recorded Concern Status LastModified by Organization Details LastModified Time None Recorded Advance Directives Directive None Recorded Payers Insurance Date Sequence Insurance Name Policy Number Policy Parker Covered Member ID Parker Member ID Guarantor Name 10/25/2023 2 MEDICAID-[facility] [employer] - FFS/TRADITIONA L Jacob Tracy [id number] Jacob Tracy 12/31/2023 1 [place]MEDICARE REPLACEMENT HMO) [id number] Jacob Tracy [id number] Jacob Tracy 04/19/2022 2 [place] Jacob Tracy [id number] Jacob Tracy 10/17/2021 2 [place] (MEDICAID [place]PLAC[place] - HMO) Jacob Tracy [id number] Jacob Tracy 07/02/2024 2 MEDICAID-[facility] [employer] - FFS/TRADITIONA L Jacob Tracy [id number] Jacob Tracy 07/02/2024 1 [place]MEDICARE [place]ACEMENT HMO) [id number] Jacob Tracy [id number] Jacob Tracy 07/02/2024 1 [place] Jacob Tracy [id number] Jacob Tracy 07/11/2020 2 HUMANA Jacob Tracy [id number] Jacob Tracy Notes Date Note Type Note [...] chronic kidney disease. 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 Jeffrey Carlos Jr, MD [address] [place] [address], [address], [address], [facility] 07/03/2022 14:15:36 01/03/2023 text/html Patient is a [...] normal at 0.5. Jeffrey Carlos Jr, MD [address] [place] [address], [address], [place], [address], [facility] 01/03/2023 10:56:14 07/04/2023 text/html patient is a [...] normal at 0.5. Jeffrey Carlos Jr, MD [address] [place] [address], [address], [address], [place] [facility] 07/04/2023 14:06:24 12/31/2023 text/html Patient is a [...] new urologic problems. Jeffrey Carlos Jr, MD [address] [place] [address], [address], [place], [address], [place] [facility] [place] 12/31/2023 10:07:52 07/02/2024 text/html Patient is a 68-year-old white male with history testosterone deficiency returns for routine six-month follow-up. He continues on 200 mg of testosterone cypionate every 2 weeks with good benefit. His testosterone levels in December were 635/14.0.His PSA last year was within normal limits at 0.5.Patient also with history of multiple simple renal cyst. Jeffrey Carlos Jr, MD [address] [facility], [address], [place], [address], [place] [facility] 07/02/2024 10:33:43
[2024-09-07 14:11] VITALS: BMI 25.1
[2024-09-07 14:32] LABS: Basophils % 0.5 % (0.1-2.0); Eosinophils # 0.1 Kmm3 (0.0-0.4); Eosinophils % 1.3 % (0.1-12.0); Hematocrit 43.9 % (42.0-52.0); Hemoglobin 14.6 g/dL (14.1-18.0); Immature Granulocytes # 0.02 10^3uL; Immature Granulocytes % 0.4 %; Lymphocytes % 18.6 % (10-50); Mean Corpuscular HGB Conc 33.3 g/dL (31.8-35.4); Mean Corpuscular Hemoglobin 30.1 pg (27.0-31.2); Mean Corpuscular Volume 90.5 fl (80-94); Mean Platelet Volume 11.7 fl (7.4-10.4); Monocytes # 0.6 K/mm3 (0.1-1.0); Monocytes % 10.4 % (1.7-9.3); Neutrophils # 3.9 K/mm3 (1.8-7.8); Neutrophils % 68.8 % (37.0-80.0); Nucleated Red Blood Cells # 0 10^3/uL; Nucleated Red Blood Cells % 0 %; Platelet Count 119 K/mm3 (142-424); Red Blood Count 4.85 M/mm3 (4.60-6.20); Red Cell Distribution Width 14.4 % (11.5-17.5); Red Cell Distribution Width-SD 47.8 fL; White Blood Count 5.6 K/mm3 (4.8-10.8)
[2024-09-07 14:38] LABS: Chloride 105 mmol/L (98-107); Potassium 4.3 mmoL/L (3.5-5.1); Sodium 138 mmol/L (136-145)
[2024-09-07 14:41] LABS: Anion Gap 11.3 mEq/L (5-15); Blood Urea Nitrogen 20 mg/dl (9-20); Calcium 9.5 mg/dl (8.4-10.2); Carbon Dioxide 26 mmol/L (22.0-30.0); Creatinine Clearance Estimated 50 mL/min (50-200); Estimated Glomerular Filt Rate 43 ml/min (>60); GFR (African American) 52 ML/MIN (>60); Glucose 118 mg/dl (74-100)
--- NOTE | 2024-09-07 14:49 | ECG_ITS ---
APPROVED REPORT Exam: Resting ECG HR:85 bpm ECG Measurements Heart Rate 85 AXES VT 156 P 21 QRSd 106 QRS 13 QT 357 T 48 QTc 399 Conclusion SINUS RHYTHM WITH FREQUENT ECTOPIC PREMATURE COMPLEXES but marked artifact UNCONFIRMED REPORT Electronically signed by : Geoffrey West MD 09/09/2024 08:36:58
== END 2024-09-07 23:59 | disposition home or self-care (01) ==
LOC: PREOP 13:46
PROVIDERS: PCP Internal Medicine Adolescent Medicine; Visit Provider Otolaryngology
DX: Z01.812 Encounter for preprocedural laboratory examination (principal); I49.49 Other premature depolarization; R94.31 Abnormal electrocardiogram [ECG] [EKG]
CPT/HCPCS: 80048; 85025; 93005

== ENCOUNTER 2024-09-13 09:00 | Day surgery (SDC) | payer MEDICARE, MEDICAID, SELFPAY ==
--- NOTE | 2024-09-08 09:20 | PC.NURSE ---
EKG reviewed w/ R. DEV Hedrick. Determined cardiac clearance warranted. Appt scheduled for 1430 today (09/08). Pt notified and verbalized understanding. Dr. Altamirano office notified.
[2024-09-08 10:31] VITALS: BMI 25.1
[2024-09-13 09:39] VITALS: BP 129/62; PULSE 82; RESP 18; TEMP 36.3; O2SAT 95
[2024-09-13 09:55] LABS: POC Glucose,Bedside 106 (70-110)
--- NOTE | 2024-09-13 10:27 | EXP.ANES.CKL ---
[facility] Disclaimer: The information contained in this section may have been updated after the patient was seen, as this information can be updated by other users. Medical History Pre-op exam Subcutaneous nodule HTN (hypertension) Diabetes Surgical History History of tonsillectomy and adenoidectomy History of surgical removal of testicle History of surgery on arm History of knee surgery Family History Other Family history of cancer Social History Smoking Status: Current every day smoker tobacco type: cigarettes packs per day: 1 second hand exposure: No alcohol intake: never counseling provided: none substance use type: former substance user current occupational status: retired Travel in the last 8 weeks?: None household members: none housing: house current occupational exposures/hazards: No caffeine: Yes Have you lived/traveled outside US in past 30 days?: No Contact w/someone who lives/traveled outside US past 30 days?: No Exposure to someone with infectious disease in past 14 days?: No Do you have a fever (greater than 100.4 F or 38 C)?: No Have you tested positive for COVID-19?: No Exposed to someone with COVID-19 in past 14 days?: No Do you have a sore throat?: No Do you have a cough?: No Do you have any weakness?: No Do you have any diarrhea?: No Are you experiencing any unusual bleeding?: No Do you have any muscle aches/pain?: No Do you have any abdominal pain?: No Are you experiencing loss of taste or smell?: No [facility] Anesthesia Checklist Patient Identification Patient Identification: Verbal (Name & ) Structural Data Admitted From: Home Planned Operative Procedure/s: excision cyst l christianity Consent for Planned Operative Procedure(s) Verified: Yes NPO Status Verified Time NPO: 00:00 Additional verifications Anesthesia Reactions: No Hx Blood Transfusions: No Blood Transfusion Reaction: No Airway Assessment Mallampati Score:: Class II C-Spine Mobility Assessed: Yes TMJ Mobility Assessed: Yes Dentition: Poor Dentition (crown missing front) Neurological Assessment Level of Consciousness: Awake, Alert and Appropriate Anesthesia Plan Anesthesia Risk discussed: Yes Anesthesia Plan: Verified ASA Class: II Anesthesia Type: MAC
[2024-09-13] MEDS: LIDOCAINE 1% W/EPI 1:100,000 20ML VIAL 20 ML (11:23)
[2024-09-13 11:35] VITALS: BP 124/63; PULSE 80; RESP 16; TEMP 36.2; O2SAT 93
--- NOTE | 2024-09-13 11:43 | P.OP_ITS ---
Date of procedure: 09/13/24 Pre-op Diagnosis:: Left supraorbital subcutaneous mass Post-op Diagnosis:: Same?path pending Procedure performed:: Excision of 5 mm subcutaneous mass left supraorbital area with primary closure - incision size 11 mm Surgeon:: Parth Altamirano III, MD [facility] Director(s):: None Anesthesia: MAC Estimated blood loss (mL): 3 Operative findings:: Subcutaneous mass found deep to dermis Operative note:: The patient was brought to the operating room and placed under local anesthesia as well as intravenous sedation. The left supraorbital area was prepared and draped in usual fashion. The preinjection 1% lidocaine with epinephrine was injected and around the mass. An incision was marked out that measured 11 mm in a natural crease in the supraorbital area laterally. The incision was carried down through the skin subcutaneous tissue and dermal layer. The mass appeared to be densely adherent to the muscular tissue in this area. It was gently dissected free using bipolar cauterization and sharp dissection. It measured approximately 5 mm in greatest diameter. It was inspected grossly but also sent for pathologic confirmation. The incision was then closed using a interrupted 5-0 Monocryl in a subcutaneous layer. Steri-Strips were applied. A pressure dressing was applied. Patient was awakened in the operating room taken the recovery room in good condition Condition: stable Disposition: PACU Complications:: none
[2024-09-13 11:45] VITALS: BP 122/66; PULSE 81; RESP 16; O2SAT 94
[2024-09-13 11:55] VITALS: BP 111/67; PULSE 75; RESP 16; O2SAT 97
[2024-09-13 12:05] VITALS: BP 112/79; PULSE 77; RESP 16; O2SAT 97
== END 2024-09-13 12:05 | disposition home or self-care (01) ==
PROVIDERS: PCP Internal Medicine Adolescent Medicine; Visit Provider Otolaryngology
PROC: (CPT 64784; principal; 2024-09-13 10:30)
DX: D36.11 Benign neoplasm of peripheral nerves and autonomic nervous system of face, head, and neck (principal); I10 Essential (primary) hypertension; E11.9 Type 2 diabetes mellitus without complications; E89.5 Postprocedural testicular hypofunction; F17.210 Nicotine dependence, cigarettes, uncomplicated; Z79.84 Long term (current) use of oral hypoglycemic drugs; Z79.899 Other long term (current) drug therapy; Z79.85 Long-term (current) use of injectable non-insulin antidiabetic drugs; Z79.890 Hormone replacement therapy
CPT/HCPCS: 64784; 82962; 88305; 88341; 88342; J2004; J2250; J2405; J2704; J3010

== ENCOUNTER 2024-11-24 09:42 | Outpatient (CLI) | payer MEDICARE, MEDICAID, SELFPAY ==
--- OUTSIDE RECORDS SUMMARY | 2024-11-24 09:55 | XMS_ITS | Clinical Summary ---
Author Organization [facility] Address [address] [place] [address] Care Team Providers Care Commercial Stripper Name Role Phone Geoffrey West MD Primary Care Provider [phone] Allergies No known active allergies Medications metFORMIN (Glucophage) 1000 MG tablet 2 (two) times a day with meals. 1 Active testosterone undecanoate (Aveed) 750 MG/3ML injection 1 Active Ozempic, 0.25 or 0.5 MG/DOSE, 2 MG/1.5ML solution pen-injector inj. pen ADMINISTER 0.25 MG UNDER THE SKIN WEEKLY FOR 4 DOSES 2 Active pantoprazole (Protonix) 40 MG EC tablet Take 1 tablet (40 mg) by mouth 2 (two) times a day. 2 Active Farxiga 10 MG tablet Take 1 tablet (10 mg) by mouth 1 (one) time each day. 2 Active Multiple Vitamin (MULTIVITAMIN ADULT PO) Take 1 tablet by mouth 1 (one) time each day. Active cyanocobalamin (Vitamin B-12) 1000 MCG tablet Take 1 tablet (1,000 mcg) by mouth 1 (one) time each day. Active anastrozole (Arimidex) 1 MG chemo tablet TAKE 1/2 TABLET BY MOUTH 2 TIMES A WEEK 3 Active DULoxetine (Cymbalta) [address] capsule Take 1 capsule (30 mg) by mouth 2 (two) times a day. 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 reno fied surface antigen) 12/07/2019 Influenza, Unspecified 01/25/2021 Influenza, high-dose, quadrivalent 12/03/2021,,01/20/2020 Influenza, injectable, quadrivalent 03/05/2017,1 04/07/2015,01/26/2015 Influenza, injectable, quadr ivalent, preservative free 01/21/2019,02/04/2018 Influenza, seasonal, injectable 01/26/20 13,01/16/2012,12/26/2010,01/22,01/05/2009,02/04/2008,01/22/2007 Influenza, seasonal, injecta ble, preservative free 02/04/2018 Pneumococcal Conjugate PCV 13 01/20/2020 Pneumococcal Polysaccharide PPV23 01/25/2021, Family History Medical History Relation Name Comments Other cancer Father Hypertension Mother Other cancer Mother Relation Name Status Comments Father Mother Social History Tobacco Use Types Packs/Day Years Used Date Smoking Tobacco: Every Day Cigarettes Passive Smoke Exposure: Current Smokeless Tobacco: Never Tobacco Cessation:Ready to Q uit: No; Counseling Given: No Alcohol Use Standard Drinks/Week Comments Not Currently 0 (1 standard drink = 0.6 oz pure alcohol) Alcoholic Drinks/day: History of alcohol use Sex and Gender Information Value Date Recorded Sex Assigned at Not on file Legal Sex Male 8:06 PM EDT Gender Identity Not on file Sexual Orientation Not on file Last Filed Vital Signs Vital Sign Reading Time Taken Comments Blood Pressure 121/70 02/06/2023 3:18 PM EDT Pulse 90 02/06/2023 3:18 PM EDT Temperature - - Respiratory Rate 14 02/06/2023 3:18 PM EDT Oxygen Saturation 98% 02/06/2023 3:18 PM EDT Inhaled Oxygen Concentration - - Weight 100 kg (220 lb 12.8 oz) 02/06/2023 3:18 P M EDT Height 182.9 cm (6') 08/14/2020 2:22 PM EDT Body Mass Index 29.95 08/14/2020 2:22 PM EDT Plan of Treatment Health Maintenance Due Date Last Done Comments [facility]-Depression Screening 1954 [facility]-Hepatitis C Screening 1955 [facility]-Medicare Annual Wellness (AWV) 1955 [facility]-Infant/Child/Adol SDOH Screenings 1954 [facility]- SDOH Screenings 1972 [facility]-Adult SDOH Screenings 1972 [facility]-DTaP,Tdap,and Td Vaccines (1 - Tdap) 1973 CT Colonography 08/03/1999 Colonoscopy 08/03/1999 FIT-DNA 08/03/1999 FIT 08/03/1999 FOBT 08/03/1999 Sigmoidoscopy 08/03/1999 [facility]-Colorectal Cancer Screening 08/03/1999 [facility]-Zoster Vaccines (1 of 2) 2004 [facility]-RSV Vaccine: 60+ Years or (1 - Risk 60-74 years 1-dose series) 2014 [facility]-Hepatitis A Vaccines (2 of 2 - Risk 2-dose series) 11/26/2020 05/29/2020 [id number] Vaccine ( season) 2023 01/02/2022, 02/08/2021, 06/14/2020 [facility]-Influenza Vaccine (#1) 12/06/202412/03, 01/25/2021, 01/25/2021, Additional history exists [facility]-Pneumococcal Vaccine: 50+ Years Completed 01/25/2021, 01/20/2020, 02/04/2008 [facility]-Obesity Intervention Completed 02/06/2023 HPV Vaccines Aged Out No longer eligi ble based on patient's age to complete this topic [facility]-HIB Vaccines Aged Out No longer e ligible based on patient's age to complete this topic [facility]-IPV Vaccines Aged Out No longer e ligible based on patient's age to complete this topic [facility]-Rotavirus Vaccines Aged Out No lo nger eligible based on patient's age to complete this topic Insurance [place] Care Teams Commercial Stripper Relationship Specialty Start Date End Date Geoffrey West MD [address] [place] [address] PCP - General Internal Medicine 10/11/21
--- OUTSIDE RECORDS SUMMARY | 2024-11-24 09:55 | XMS_ITS | Encounter Summary ---
Author Organization [facility] Address [address] [id number] Care Team Providers Care Cone Trucker Name Role Phone Jacob Mcduffie MD Primary Care Provider [phone] Geoffrey West MD Primary Care Provider [phone] Encounter Details Date Type Department Care Team (Late st Contact Info) Description 09/13/2021 Orders Only [facility] [address] [place] [address] Leisa Blake CKD (chronic kidney disease) stage 2, GFR 60-89 ml/min (Primary Dx) Social History Tobacco Use Types Packs/Day Years Used Date Smoking Tobacco: Every Day Alcohol Use Standard Drinks/Week Comments Not Currently 0 (1 standard drink = 0.6 oz pure alcohol) Alcoholic Drinks/day: History of alcohol use Sex and Gender Information Value Date Recorded Sex Assigned at Not on file Legal Sex Male 8:06 PM EDT Gender Identity Not on file Sexual Orientation Not on file documented as of this encounter Plan of Treatment Not on file documented as of this encounter Visit Diagnoses Diagnosis CKD (chronic kidney disease) stage 2, GFR 60-89 ml/min- Primary Chronic kidney disease, Stage II (mild) documented in this encounter Care Teams Cone Trucker Relationship Specialty Start Date End Date Jacob Mcduffie MD [address] [facility] [place] [address] PCP - General 08/18/20 10/10/21 Geoffrey West MD [address] [place] [address] PCP - General Internal Medicine 10/11/21 documented as of this encounter
--- OUTSIDE RECORDS SUMMARY | 2024-11-24 09:55 | XMS_ITS | Encounter Summary ---
Author Organization [facility] Address [address] [place] [address] Care Team Providers Care Application Defense Manager Name Role Phone Geoffrey West MD Primary Care Provider [phone] Reason for Visit * Reason Comments Med Refill Encounter Details Date Type Department Care Team ([facility] st Contact Info) Description 12/26/2023 Refill Professional [facility]phrology, Bone & Mineral Metabolism [address] [facility], [address] [place] [address] Allegra Ojeda MD [address] [place] [address] CKD (chronic kidney disease) stage 2, GFR 60-89 ml/min; Persistent proteinuria; Essential hypertension Social History Tobacco Use Types Packs/Day Years Used Date Smoking Tobacco: Every Day Cigarettes Passive Smoke Exposure: Current Smokeless Tobacco: Never Alcohol Use Standard Drinks/Week Comments Not Currently [...] kidney disease) stage 2, GFR 60-89 ml/min Chronic kidney disease, Stage II (mild) Persistent proteinuria Essential hypertension Unspecified essential hypertension documented in this encounter Additional Health Concerns Assessment Noted Time A fall risk assessment has been complete d for the patient 02/06/2023 3:24 PM EDT A Body Mass Index follow-up plan has been documented for the patient 02/06/2023 3:43 PM EDT documented as of this encounter Care Teams Application Defense Manager Relationship Specialty Start Date End Date Geoffrey West MD [address] [place] [address] PCP - General Internal Medicine 10/11/21 documented as of this encounter
--- OUTSIDE RECORDS SUMMARY | 2024-11-24 09:55 | XMS_ITS | Encounter Summary ---
Author Organization [facility] Address [address] [place] [address] Care Team Providers Care Movie Critic Name Role Phone Geoffrey West MD Primary Care Provider [phone] Reason for Visit * Reason Comments Med Refill Encounter Details Date Type Department Care Team ([facility] st Contact Info) Description 07/26/2024 Refill [facility] [address] [place] [address] Allegra Ojeda MD [address] [facility] [address] [place] [address] CKD (chronic kidney disease) stage [...] documented as of this encounter Care Teams Movie Critic Relationship Specialty Start Date End Date Geoffrey West MD [address] [place] [address] PCP - General Internal Medicine 10/11/21 documented as of this encounter
--- OUTSIDE RECORDS SUMMARY | 2024-11-24 09:55 | XMS_ITS | Encounter Summary ---
Author Organization [facility] Address [address] [place] [address] Care Team Providers Care Box Blank Machine Operator Helper Name Role Phone Geoffrey West MD Primary Care Provider [phone] Reason for Visit * Reason Comments Med Refill Encounter Details Date Type Department Care Team ([facility] st Contact Info) Description 06/18/2022 Refill Professional [facility] Neph[facility], Bone & Mineral Metabolism [address] [facility], [address] [place] [address] Allegra Ojeda MD [address] [place] [address] Social History Tobacco Use Types Packs/Day Years Used Date Smoking Tobacco: Every Day Smokeless Tobacco: Never Alcohol Use Standard Drinks/Week Comments Not Currently 0 (1 standard drink = 0.6 oz pure alcohol) Alcoholic Drinks/day: History of alcohol use Sex and Gender Information Value Date Recorded Sex Assigned at Not on file Legal Sex Male 8:06 PM EDT Gender Identity Not on file Sexual Orientation Not on file documented as of this encounter Miscellaneous Notes * Telephone Encounter - Elsi Connors LPN - 06/18/2022 11:51 AM EDT Medication lisinopril 10 mg tablet once daily refilled per protocol. #30 with 0 refills sent to [facility]. Follow up scheduled 07/15/22. documented in this encounter Plan of Treatment Not on file documented as of this encounter Visit Diagnoses Not on filedocumented in this encounter Care Teams Box Blank Machine Operator Helper Relationship Specialty Start Date End Date Geoffrey West MD [address] [place] [address] PCP - General Internal Medicine 10/11/21 documented as of this encounter
--- OUTSIDE RECORDS SUMMARY | 2024-11-24 09:55 | XMS_ITS | Encounter Summary ---
Author Organization [facility] Address [address] [place] [address] Care Team Providers Care Auto Wash Buffer Name Role Phone Geoffrey West MD Primary Care Provider [phone] Reason for Visit * Reason Comments Med Refill Encounter Details Date Type Department Care Team ([facility] st Contact Info) Description 08/06/2024 Refill [facility] [address] [place] [address] Allegra Ojeda MD [address] [facility] [address] [place] [address] CKD (chronic kidney disease) stage [...] documented as of this encounter Care Teams Auto Wash Buffer Relationship Specialty Start Date End Date Geoffrey West MD [address] [place] [address] PCP - General Internal Medicine 10/11/21 documented as of this encounter
--- OUTSIDE RECORDS SUMMARY | 2024-11-24 09:55 | XMS_ITS | Clinical Summary ---
Author Organization [facility] [place] [address] Care Team Providers Care First Crusher Name Role Phone Unavailable Primary Care Provider Unavailabl e Social History Tobacco Use Types Packs/Day Years Used Date Smoking Tobacco: Never Assessed Sex and Gender Information Value Date Recorded Sex Assigned at Not on file Legal Sex Male 8:52 PM EDT Gender Identity Not on file Sexual Orientation Not on file Plan of Treatment Health Maintenance Due Date Last Done Comments Annual Wellness Exam 1957 Hepatitis C Screening 1972 DTaP/TDaP/Td (1 - Tdap) 1973 Cologuard 08/03/1999 Colon Cancer Screening 08/03/1999 Colonoscopy 08/03/1999 FIT 08/03/1999 Sigmoidoscopy 08/03/1999 Virtual Colonography 08/03/1999 Pneumococcal Vaccine 50+ (1 of 1 - PCV) 2004 Zoster (1 of 2) 2004 COVID-19 Vaccine (2023-2 5 season) 2023 Influenza Vaccine (#1) 2024 Hepatitis B Vaccine Aged Out No longe r eligible based on patient's age to complete this topic Meningococcal B Vaccine Aged Out No l onger eligible based on patient's age to complete this topic
[2024-11-24 10:17] LABS: Hematocrit 47.2 % (42.0-52.0); Hemoglobin 16.3 g/dL (14.1-18.0); Immature Granulocytes % 0.3 %; Mean Corpuscular HGB Conc 34.5 g/dL (31.8-35.4); Mean Corpuscular Hemoglobin 30.6 pg (27.0-31.2); Mean Corpuscular Volume 88.6 fl (80-94); Nucleated Red Blood Cells % 0 %; Platelet Count 116 K/mm3 (142-424); Red Blood Count 5.33 M/mm3 (4.60-6.20); Red Cell Distribution Width-SD 44.4 fL; White Blood Count 6.8 K/mm3 (4.8-10.8)
[2024-11-24 11:28] LABS: Alanine Aminotransferase 20 U/L (12-78); Albumin Level 4.5 g/dl (3.5-5.0); Albumin/Globulin Ratio 1.7 (1.1-1.8); Alkaline Phosphatase 96 U/L (38-126); Amylase 50 U/L (30-110); Anion Gap 15.8 mEq/L (5-15); Aspartate Amino Transferase 32 U/L (17-59); Bilirubin,Total 1.6 mg/dl (0.2-1.3); Blood Urea Nitrogen 21 mg/dl (9-20); Calcium 10.1 mg/dl (8.4-10.2); Carbon Dioxide 30 mmol/L (22.0-30.0); Chloride 93 mmol/L (98-107); Creatinine,Serum 1.40 mg/dl (0.66-1.25); Estimated Glomerular Filt Rate 50 ml/min (>60); GFR (African American) 61 ML/MIN (>60); Globulin 2.7 g/dL (1.3-3.2); Glucose 106 mg/dl (74-100); Lipase 82 U/L (23-300); Potassium 4.8 mmoL/L (3.5-5.1); Sodium 134 mmol/L (136-145); Total Protein,Serum 7.2 g/dl (6.3-8.2)
--- NOTE | 2024-11-24 12:44 | CT_ITS ---
FINAL REPORT TECHNIQUE: After the administration of intravenous contrast, axial images were obtained through the abdomen and pelvis by computed tomography. The study was performed with techniques to keep radiation dose as low as reasonably achievable, (ALARA). Individual dose reduction techniques using automated exposure control or adjustment of mA and/or kV according to the patient's size were employed. CLINICAL HISTORY: GENERALIZED ABD PAIN COMPARISON: 09/24/2021 FINDINGS: Abdomen: Calcified granulomas are present in the lung bases. There is moderate decreased attenuation of the liver. Lobular margins are noted of the liver consistent with cirrhosis. There are ill-defined areas of increased attenuation in the right lobe of the liver that may represent regenerative nodules. The gallbladder is distended. Calcified granulomas are present in the spleen, and the spleen is enlarged.. Multiple bilateral renal cysts are present. The largest left parapelvic cyst measures 5.3 x 3.3 cm in size. There is a cyst in the superior pole of the right kidney, which represents a complex cyst, measuring 12 Hounsfield units on delayed images and 16 Hounsfield units on immediate images. There is a 2.8 cm calcification present in the wall. There is a new mass in the left kidney when compared to the prior exam of 2021, measuring 2.2 cm in size, with a mean attenuation value of 71 Hounsfield units after contrast administration, and 53 Hounsfield units on delayed imaging, indeterminate. Pelvis: The appendix is normal in appearance. The urinary bladder is unremarkable. There is no free fluid or adenopathy. Moderate stool is present in the colon. IMPRESSION: Changes of cirrhosis are once again identified with lobular hepatic margins, ill-defined areas that may represent regenerative nodules, and splenomegaly. Multiple bilateral renal cysts are present, several of which do not appear to represent simple cysts. There is a new cystic mass in the left kidney as described above, that is indeterminate. Would recommend renal mass protocol CT for further evaluation. Reviewed, Interpreted and Dictated by Han Reed MD Transcribed by Nely Naidu Authenticated and [facility]
[2024-11-24] MEDS: SODIUM CHLORIDE 0.9% 10ML SYR (RAD ONLY) 10 ML IV (13:16)
[2024-11-24] MEDS: IOPAMIDOL-370 (76%);100ML BOTTLE 75 ML IV (13:16)
== END 2024-11-24 23:59 | disposition home or self-care (01) ==
PROVIDERS: PCP Internal Medicine Adolescent Medicine; Visit Provider Nurse Practitioner Family
DX: K74.60 Unspecified cirrhosis of liver (principal); N28.89 Other specified disorders of kidney and ureter; Q61.02 Congenital multiple renal cysts; R16.1 Splenomegaly, not elsewhere classified; R93.2 Abnormal findings on diagnostic imaging of liver and biliary tract
CPT/HCPCS: 36415; 74177; 80053; 82150; 83690; 85025; Q9967